=== PATIENT | female | born 1945 | race Caucasian/White ===

== ENCOUNTER → 2020-07-04 10:04 | Outpatient (BNVA) | payer MEDICARE, SELFPAY | PROVIDERS: PCP Internal Medicine; Visit Provider Nurse Practitioner Gerontology | DX: E11.42 Type 2 diabetes mellitus with diabetic polyneuropathy (principal); E11.65 Type 2 diabetes mellitus with hyperglycemia; Z79.84 Long term (current) use of oral hypoglycemic drugs; I10 Essential (primary) hypertension; E78.5 Hyperlipidemia, unspecified; E66.9 Obesity, unspecified | CPT/HCPCS: 82947; 99212 ==

== ENCOUNTER 2020-07-07 09:51 | Outpatient (REF) | payer MEDICARE, SELFPAY ==
[2020-07-07 11:38] LABS: Alanine Aminotransferase 42 U/L (0-31); Albumin Level 4.1 g/dL (3.5-5.0); Alkaline Phosphatase 24 U/L (39-117); Anion Gap 12 (12-20); Aspartate Amino Transferase 26 U/L (5-31); Bilirubin Total 0.3 mg/dL (0.0-1.0); Blood Urea Nitrogen 18 mg/dL (9-16); Calcium 9.9 mg/dL (8.4-10.2); Carbon Dioxide 28 mmol/L (22-29); Chloride 102 mmol/L (96-108); Cholesterol 190 mg/dL; Estimated Glomerular Filt Rate > 60; Glucose Fasting 178 mg/dL (60-99); HDL Cholesterol 55 mg/dL; LDL Cholesterol Calculated 111 mg/dl; Potassium 5.1 mmol/l (3.3-5.1); Sodium 137 mmol/L (135-145); Total Protein 6.8 g/dL (6.5-8.0); Triglycerides 123 mg/dL
[2020-07-07 11:46] LABS: Free T4 (Free Thyroxine) 1.06 ng/dL (0.71-1.85); Thyroid Stimulating Hormone 1.88 uIU/mL (0.32-4.0)
[2020-07-07 11:48] LABS: Vitamin D 25-OH Total 32.5 ng/mL (>30)
[2020-07-08 09:16] LABS: Triiodothyronine T3 Free 2.6 pg/mL (2.3-4.2)
== END 2020-07-07 09:52 | disposition home or self-care (01) ==
LOC: HO.LAB 09:51
PROVIDERS: Absent Provider Nurse Practitioner Gerontology; PCP Internal Medicine; Visit Provider Internal Medicine
DX: E03.9 Hypothyroidism, unspecified (principal); I10 Essential (primary) hypertension; J44.9 Chronic obstructive pulmonary disease, unspecified; Z78.0 Asymptomatic menopausal state; E11.9 Type 2 diabetes mellitus without complications
CPT/HCPCS: 80053; 80061; 82306; 84439; 84443; 84481

== ENCOUNTER 2020-07-08 09:45 | Outpatient (REF) | payer MEDICARE, SELFPAY ==
[2020-07-08 11:19] LABS: Creatinine Urine 74.48 mg/dL; Microalbum/Creatinine Ratio Ur 16.1 ug/mg cr
== END 2020-07-08 09:46 | disposition home or self-care (01) ==
LOC: HO.LNP 09:45
PROVIDERS: Visit Provider Nurse Practitioner Gerontology
DX: E11.42 Type 2 diabetes mellitus with diabetic polyneuropathy (principal); E03.9 Hypothyroidism, unspecified; I10 Essential (primary) hypertension; J44.9 Chronic obstructive pulmonary disease, unspecified; Z78.0 Asymptomatic menopausal state
CPT/HCPCS: 82043

== ENCOUNTER → 2020-10-05 08:20 | Outpatient (BNVA) | payer MEDICARE, SELFPAY | PROVIDERS: PCP Internal Medicine; Visit Provider Nurse Practitioner Gerontology | DX: Z76.89 Persons encountering health services in other specified circumstances (principal) | CPT/HCPCS: Q3014 ==

== ENCOUNTER 2020-10-26 09:55 | Outpatient (REF) | payer MEDICARE, SELFPAY ==
[2020-10-26 12:05] LABS: Alanine Aminotransferase 40 U/L (0-31); Anion Gap 15 (12-20); Aspartate Amino Transferase 27 U/L (5-31); Blood Urea Nitrogen 16 mg/dL (9-16); Calcium 9.6 mg/dL (8.4-10.2); Carbon Dioxide 28 mmol/L (22-29); Chloride 102 mmol/L (96-108); Cholesterol 194 mg/dL; Estimated Glomerular Filt Rate > 60; Glucose Fasting 178 mg/dL (60-99); HDL Cholesterol 55 mg/dL; LDL Cholesterol Calculated 114 mg/dl; Potassium 4.6 mmol/L (3.3-5.1); Sodium 140 mmol/L (135-145); Triglycerides 129 mg/dL
[2020-10-26 12:27] LABS: Free T4 (Free Thyroxine) 1.17 ng/dL (0.71-1.85); Thyroid Stimulating Hormone 1.82 uIU/mL (0.32-4.0)
== END 2020-10-26 09:56 | disposition home or self-care (01) ==
LOC: HO.HMGCLDS 09:55
PROVIDERS: PCP Internal Medicine; Visit Provider Internal Medicine
DX: E11.42 Type 2 diabetes mellitus with diabetic polyneuropathy (principal); E11.65 Type 2 diabetes mellitus with hyperglycemia; I10 Essential (primary) hypertension; E78.5 Hyperlipidemia, unspecified; E66.9 Obesity, unspecified; E03.9 Hypothyroidism, unspecified
CPT/HCPCS: 36415; 80048; 80061; 84439; 84443; 84450; 84460

== ENCOUNTER 2020-12-19 16:45 | Outpatient (REF) | payer MEDICARE, SELFPAY | END 2020-12-19 16:46 | disposition home or self-care (01) | LOC: HO.LNP 16:45 | PROVIDERS: Visit Provider Nurse Practitioner Family | DX: Z20.822 Contact with and (suspected) exposure to COVID-19 (principal) | CPT/HCPCS: U0003; U0005 ==

== ENCOUNTER → 2020-12-26 14:33 | Outpatient (BNVA) | payer MEDICARE, SELFPAY | PROVIDERS: PCP Internal Medicine; Visit Provider Nurse Practitioner Gerontology ==

== ENCOUNTER 2021-01-03 16:36 | Outpatient (REF) | payer MEDICARE, SELFPAY ==
--- NOTE | ~2021-01-03 | US_ITS ---
EXAMINATION: US VENOUS ULTRASOUND WITH DOPPLER LOWER EXTREMITY, LEFT CLINICAL INFORMATION: Left flank pain COMPARISON: None TECHNIQUE: Ultrasound of the deep veins is performed from the hip to the calf with compression sonography and color and pulse Doppler assessment. Spectral analysis with color-flow imaging is performed. FINDINGS: There is normal venous compression and respiratory variation and augmented flow. The visualized common femoral vein, superficial femoral vein, profunda femoral vein, popliteal vein, and the trifurcation region shows no evidence of deep venous thrombosis. There is no significant popliteal fossa cyst. There is an anterior fluid collections seen anterior to the patella measuring 5.0 x 1.6 x 4.2 cm which could represent a joint effusion. If the patient's symptoms persist, followup ultrasound in 5 days 7 days might be of value to exclude proximal propagation from a non-visualized calf vein. US/US venous duplex LE LT IMPRESSION: No DVT demonstrated in the left lower extremity. Possible joint effusion or fluid collection in the area of patient's discomfort.
== END 2021-01-03 16:37 | disposition home or self-care (01) ==
LOC: HO.US 16:36
PROVIDERS: PCP Internal Medicine; Visit Provider Nurse Practitioner Family
DX: M79.605 Pain in left leg (principal)
CPT/HCPCS: 93971

== ENCOUNTER 2021-01-31 06:37 | Outpatient (REF) | payer MEDICARE, SELFPAY ==
[2021-01-31 11:52] LABS: Glucose Urine UA NEG (NEG); Leukocyte Esterase Urine NEG (NEG); Nitrite Urine NEG (NEG); Urine Blood NEG (NEG); Urine Ketones NEG (NEG); Urine Protein NEG (NEG-TRACE)
[2021-01-31 11:57] LABS: Color Urine YELLOW
[2021-01-31 11:58] LABS: Appearance Urine CLEAR
[2021-01-31 12:15] LABS: Free T4 (Free Thyroxine) 0.88 ng/dL (0.71-1.85); Thyroid Stimulating Hormone 2.63 uIU/mL (0.32-4.0); Vitamin D 25-OH Total 29.6 ng/mL (>30)
[2021-01-31 12:16] LABS: Estimated Average Glucose 189 mg/dL; Hemoglobin A1c % 8.2 %
[2021-01-31 12:25] LABS: Alanine Aminotransferase 41 U/L (0-31); Alkaline Phosphatase 24 U/L (39-117); Anion Gap 15 (12-20); Aspartate Amino Transferase 31 U/L (5-31); Bilirubin Total 0.6 mg/dL (0.0-1.0); Blood Urea Nitrogen 17 mg/dL (9-16); Calcium 9.4 mg/dL (8.4-10.2); Carbon Dioxide 23 mmol/L (22-29); Chloride 107 mmol/L (96-108); Cholesterol 189 mg/dL; Estimated Glomerular Filt Rate > 60; Glucose Fasting 178 mg/dL (60-99); HDL Cholesterol 44 mg/dL; LDL Cholesterol Calculated 113 mg/dl; Potassium 4.8 mmol/L (3.3-5.1); Sodium 140 mmol/L (135-145); Total Protein 6.7 g/dL (6.5-8.0); Triglycerides 164 mg/dL
[2021-01-31 12:51] LABS: Creatinine Urine 71.93 mg/dL; Microalbum/Creatinine Ratio Ur 26.4 ug/mg cr
== END 2021-01-31 06:38 | disposition home or self-care (01) ==
LOC: HO.HMGCLDS 06:37
PROVIDERS: PCP Internal Medicine; Visit Provider Internal Medicine
DX: E11.65 Type 2 diabetes mellitus with hyperglycemia (principal); E11.42 Type 2 diabetes mellitus with diabetic polyneuropathy; E89.0 Postprocedural hypothyroidism; I10 Essential (primary) hypertension; E78.5 Hyperlipidemia, unspecified; E66.9 Obesity, unspecified; Z78.0 Asymptomatic menopausal state
CPT/HCPCS: 36415; 80053; 80061; 81003; 82043; 82306; 83036; 84439; 84443

== ENCOUNTER → 2021-02-22 13:47 | Outpatient (BNVA) | payer MEDICARE, SELFPAY | PROVIDERS: PCP Internal Medicine; Visit Provider Nurse Practitioner Gerontology | DX: E11.42 Type 2 diabetes mellitus with diabetic polyneuropathy (principal); E11.65 Type 2 diabetes mellitus with hyperglycemia; E78.5 Hyperlipidemia, unspecified; E66.9 Obesity, unspecified; I10 Essential (primary) hypertension; Z91.19 Patient's noncompliance with other medical treatment and regimen | CPT/HCPCS: 82947; 99212 ==

== ENCOUNTER 2021-03-31 16:38 | Outpatient (REF) | payer MEDICARE, SELFPAY | END 2021-03-31 16:39 | disposition home or self-care (01) | LOC: HO.LNP 16:38 | PROVIDERS: Visit Provider Hospitalist | DX: R30.0 Dysuria (principal) | CPT/HCPCS: 87086; 87088; 87186 ==

== ENCOUNTER → 2021-06-19 08:58 | Outpatient (BNVA) | payer MEDICARE, SELFPAY | PROVIDERS: PCP Internal Medicine; Visit Provider Nurse Practitioner Gerontology | DX: E11.42 Type 2 diabetes mellitus with diabetic polyneuropathy (principal); E11.65 Type 2 diabetes mellitus with hyperglycemia; E78.5 Hyperlipidemia, unspecified; E66.9 Obesity, unspecified; I10 Essential (primary) hypertension; Z91.19 Patient's noncompliance with other medical treatment and regimen | CPT/HCPCS: 82947; 83036; 99212 ==

== ENCOUNTER 2021-07-04 11:00 | Outpatient (RCR) | payer MEDICARE, SELFPAY ==
--- NOTE | 2021-06-27 10:57 | MHC.PT.EP ---
[facility] [place] Office [place] Office [place] Office [address] Len Chester [address] [phone] F: [phone] F: [phone] F: [phone] F: [phone] Physical Therapy Plan of Care Date of Evaluation: Date of Surgery: N/A Diagnosis: cervicalgia Assessment: pt presents w/ signs and symptoms consistent w/ poor habitual posturing and muscular imbalance of cervical postural muscles. pt presents to physical therapy with pain, decreased range of motion, decreased strength, impaired functional mobility, and impaired postural awareness. pt is a good candidate for skilled PT due to age, potential remediation of impairments, typical disease/condition progression and prognosis, comorbidities, and motivation. pt would benefit from tailored strengthening and stretching exercise program, functional training, postural re-training, neuromuscular re-education, modalities as needed for pain, equipment safety demonstration. Frequency and Duration: The patient will be seen 1x/wk for 4 wks Short Term Goals: pt will be I w/ HEP to promote self-management of condition. pt will demo proper sitting posture w/ lumbar roll to promote neutral spine w/ seated ADLs. Prison Goals: pt will report a statistically significant improvement in self-reported outcome measure, NDI, to promote return to PLOF. 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 Treatment Plan: Modalities to reduce pain, spasms and effusion. Manual therapy to restore motion and function. Therapeutic exercise to improve strength and flexibility. Neuromuscular re-education for posture and balance. Therapeutic activities to return to functional activities of daily living. Electronically signed by: Brenda Mccullough PT, DPT Please sign and return to therapist. Thank you for your referral.
--- NOTE | 2021-07-18 14:23 | MHC.PT.DC ---
[facility] [place] Office [place] Office [place] Office [address] Len Chester [address] [phone] F: [phone] F: [phone] F: [phone] F: [phone] Physical Therapy Discharge Report Diagnosis: cervicalgia Date of Surgery: N/A Date of Evaluation: 06/27/21 Date of Discharge: 07/18/21 Treatments to Date: 2 Cancellations to Date: 0 No Shows to Date: 2 Discharge Status: Visit Non-compliance Discharge Summary: The patient has no showed two consecutive appointments. Per [facility] Core Therapy policy she is to be discharged for visit non-compliance. Electronically signed by: Brenda Mccullough PT, DPT Please sign and return to therapist. Thank you for your referral.
== END 2021-07-18 14:23 | disposition home or self-care (01) ==
LOC: HO.PT 11:00
PROVIDERS: PCP Internal Medicine; Visit Provider Internal Medicine
DX: M54.2 Cervicalgia (principal)
CPT/HCPCS: 97110; 97161

== ENCOUNTER → 2021-07-07 10:39 | Outpatient (BNVA) | payer MEDICARE, SELFPAY | PROVIDERS: PCP Internal Medicine; Visit Provider Registered Nurse Diabetes Educator | DX: E11.65 Type 2 diabetes mellitus with hyperglycemia (principal) | CPT/HCPCS: 99211 ==

== ENCOUNTER → 2021-10-13 10:29 | Outpatient (BNVA) | payer MEDICARE, SELFPAY | PROVIDERS: PCP Internal Medicine; Visit Provider Nurse Practitioner Gerontology | DX: E11.42 Type 2 diabetes mellitus with diabetic polyneuropathy (principal); E11.65 Type 2 diabetes mellitus with hyperglycemia; E78.5 Hyperlipidemia, unspecified; E66.9 Obesity, unspecified; I10 Essential (primary) hypertension; Z91.19 Patient's noncompliance with other medical treatment and regimen; Z79.84 Long term (current) use of oral hypoglycemic drugs; Z68.32 Body mass index [BMI] 32.0-32.9, adult | CPT/HCPCS: 82947; 83036; 99212 ==

== ENCOUNTER 2021-10-25 07:07 | Outpatient (REF) | payer MEDICARE, SELFPAY ==
[2021-10-25 11:49] LABS: Free T4 (Free Thyroxine) 1.05 ng/dL (0.71-1.85); Thyroid Stimulating Hormone 2.69 uIU/mL (0.32-4.0)
[2021-10-25 12:11] LABS: Alanine Aminotransferase 43 U/L (0-31); Alkaline Phosphatase 23 U/L (39-117); Anion Gap 13 (12-20); Aspartate Amino Transferase 31 U/L (5-31); Bilirubin Total 0.4 mg/dL (0.0-1.0); Blood Urea Nitrogen 20 mg/dL (9-16); Calcium 10.1 mg/dL (8.4-10.2); Carbon Dioxide 28 mmol/L (22-29); Chloride 102 mmol/L (96-108); Estimated Glomerular Filt Rate > 60; Glucose Fasting 176 mg/dL (60-99); Potassium 4.4 mmol/L (3.3-5.1); Sodium 139 mmol/L (135-145); Total Protein 6.7 g/dL (6.5-8.0)
== END 2021-10-25 07:08 | disposition home or self-care (01) ==
LOC: HO.HMGCLDS 07:07
PROVIDERS: Visit Provider Internal Medicine
DX: I10 Essential (primary) hypertension (principal); E03.9 Hypothyroidism, unspecified; E11.65 Type 2 diabetes mellitus with hyperglycemia
CPT/HCPCS: 36415; 80053; 84439; 84443

== ENCOUNTER → 2022-01-12 10:33 | Outpatient (BNVA) | payer MEDICARE, SELFPAY | PROVIDERS: PCP Internal Medicine; Visit Provider Nurse Practitioner Gerontology | DX: E11.65 Type 2 diabetes mellitus with hyperglycemia (principal); E11.42 Type 2 diabetes mellitus with diabetic polyneuropathy; E78.5 Hyperlipidemia, unspecified; E66.9 Obesity, unspecified; I10 Essential (primary) hypertension; Z79.84 Long term (current) use of oral hypoglycemic drugs; Z68.31 Body mass index [BMI] 31.0-31.9, adult | CPT/HCPCS: 82947; 83036; 99212 ==

== ENCOUNTER 2022-05-22 08:10 | Outpatient (REF) | payer MEDICARE, SELFPAY ==
[2022-05-22 11:54] LABS: Alanine Aminotransferase 24 U/L (0-31); Albumin Level 4.1 g/dL (3.5-5.0); Alkaline Phosphatase 20 U/L (39-117); Anion Gap 16 (12-20); Aspartate Amino Transferase 20 U/L (5-31); Bilirubin Total 0.4 mg/dL (0.0-1.0); Blood Urea Nitrogen 17 mg/dL (9-16); Calcium 9.8 mg/dL (8.4-10.2); Carbon Dioxide 25 mmol/L (22-29); Chloride 104 mmol/L (96-108); Cholesterol 193 mg/dL; Estimated Glomerular Filt Rate > 60; Glucose Fasting 153 mg/dL (60-99); HDL Cholesterol 50 mg/dL; LDL Cholesterol Calculated 115 mg/dl; Potassium 4.6 mmol/L (3.3-5.1); Sodium 140 mmol/L (135-145); Total Protein 6.8 g/dL (6.5-8.0); Triglycerides 140 mg/dL
[2022-05-22 12:06] LABS: Free T4 (Free Thyroxine) 0.97 ng/dL (0.71-1.85); Thyroid Stimulating Hormone 2.02 uIU/mL (0.32-4.0); Vitamin D 25-OH Total 42.9 ng/mL (>30)
[2022-05-22 17:03] LABS: Creatinine Urine 100.61 mg/dL; Microalbum/Creatinine Ratio Ur 103.3 ug/mg cr
[2022-05-24 01:27] LABS: LDL Cholesterol Direct 119 mg/dL (<100)
== END 2022-05-22 08:11 | disposition home or self-care (01) ==
LOC: HO.HMGCLDS 08:10
PROVIDERS: Nurse Practitioner Gerontology; PCP Internal Medicine; Visit Provider Internal Medicine
DX: E89.0 Postprocedural hypothyroidism (principal); E78.5 Hyperlipidemia, unspecified; I10 Essential (primary) hypertension; E11.42 Type 2 diabetes mellitus with diabetic polyneuropathy; E66.9 Obesity, unspecified
CPT/HCPCS: 36415; 80053; 80061; 82043; 82306; 83721; 84439; 84443

== ENCOUNTER 2022-08-30 17:16 | Outpatient (REF) | payer MEDICARE, SELFPAY ==
--- NOTE | ~2022-08-30 | XR_ITS ---
EXAMINATION: XR ELBOW, LEFT CLINICAL INFORMATION: Elbow pain COMPARISON: None available TECHNIQUE: AP, lateral, and oblique views of the left elbow. FINDINGS: There is a subtle lucency at the articular surface of the medial aspect of the radial head, differential consideration include age-indeterminate fracture, osteochondral lesion. No dislocation. There is bony spurring at the medial and lateral humeral epicondyle. Multiple small ossific densities adjacent to the lateral humeral epicondyle/condyle, which could represent heterotopic ossification, sequela of epicondylitis. No significant joint effusion. XR/XR elbow LT min 3V IMPRESSION: 1. Findings in the radial head, described above, could represent age indeterminate fracture, osteochondral lesion/OCD. 2. Findings associated medial and lateral humeral epicondyle, detailed above, could reflect heterotopic ossification, enthesopathy, epicondylitis. Clinically correlate. MRI evaluation may be helpful.
== END 2022-08-30 17:17 | disposition home or self-care (01) ==
LOC: HO.HOSX 17:16
PROVIDERS: Visit Provider Physician Assistant
DX: S52.122D Displaced fracture of head of left radius, subsequent encounter for closed fracture with routine healing (principal); V09.9XXD Pedestrian injured in unspecified transport accident, subsequent encounter
CPT/HCPCS: 73080; 99202

== ENCOUNTER 2022-09-27 10:00 | Outpatient (RCR) | payer MEDICARE, SELFPAY ==
--- NOTE | 2022-09-27 10:43 | MHC.OT.DC ---
[address] [phone] F: [phone] Occupational Therapy Discharge Note Provider: Yuliya Early Diagnosis: Left Radial Head Fx Date of Surgery: Date of Evaluation: 09/05/22 Date of Discharge: Treatments to Date: 8 Cancellations to Date: 0 No Shows to Date: 0 Discharge Status: Achieved Goals Improved Function Independent with HEP Discharge Summary: Amarilis has made significant gains in OT and is scheduled for d/c this date. Pt. reports left elbow is pain free at rest, reaches 2/10 with activity. Elbow ROM is WFL's and gross grasp improved to 38#. At this time, pt. is IND with all ADL's/IADL's and IND with HEP. Electronically Signed By: Shauna Ramires MS OTR/L Reviewed/agree with student documentation: Therapist: Please Sign and return to therapist, thank you for your referral.
== END 2022-09-27 10:44 | disposition home or self-care (01) ==
LOC: HO.OT 10:00
PROVIDERS: PCP Internal Medicine; Visit Provider Physician Assistant
DX: S52.122A Displaced fracture of head of left radius, initial encounter for closed fracture (principal)
CPT/HCPCS: 97110; 97140; 97165

== ENCOUNTER 2022-10-03 11:49 | Outpatient (REF) | payer MEDICARE, SELFPAY ==
--- NOTE | ~2022-10-03 | MM_ITS ---
EXAMINATION: MM SCREENING DIGITAL BREAST TOMOSYNTHESIS, BILATERAL CLINICAL INFORMATION: Screening. Asymptomatic. The lifetime risk of breast cancer based on the Tyrer-Cuzick Model is 1.8%. COMPARISON: Mammography: May 11, 2020 and studies dating back to November 02, 2014 TECHNIQUE: Digital breast tomosynthesis is performed in both the craniocaudal and mediolateral oblique views along with computer-aided detection (CAD). Synthesized 2D images are generated from the tomosynthesis. FINDINGS: There are scattered areas of fibroglandular density (ACR BI-RADS breast composition Category b). There are no significant masses, abnormal calcifications, or other abnormalities. MM/MM tomosynthesis screening BI IMPRESSION: No significant changes from prior exam. ASSESSMENT: BI-RADS 1: Negative RECOMMENDATION: Routine annual mammography screening. This patient's information was entered into a reminder system with a target due date for their next mammogram.
== END 2022-10-03 11:50 | disposition home or self-care (01) ==
LOC: HO.MAMMO 11:49
PROVIDERS: PCP Internal Medicine; Visit Provider Internal Medicine
DX: Z12.31 Encounter for screening mammogram for malignant neoplasm of breast (principal)
CPT/HCPCS: 77063; 77067

== ENCOUNTER 2022-12-03 08:16 | Outpatient (REF) | payer MEDICARE, SELFPAY ==
[2022-12-03 11:54] LABS: Estimated Average Glucose 151 mg/dL; Hemoglobin A1c % 6.9 %
[2022-12-03 11:56] LABS: Alanine Aminotransferase 20 U/L (0-31); Anion Gap 13 (12-20); Aspartate Amino Transferase 16 U/L (5-31); Blood Urea Nitrogen 17 mg/dL (9-16); Calcium 9.4 mg/dL (8.4-10.2); Carbon Dioxide 26 mmol/L (22-29); Chloride 109 mmol/L (96-108); Cholesterol 168 mg/dL; Estimated Glomerular Filt Rate > 60; Glucose Fasting 170 mg/dL (60-99); HDL Cholesterol 50 mg/dL; LDL Cholesterol Calculated 90 mg/dl; Potassium 4.6 mmol/L (3.3-5.1); Sodium 143 mmol/L (135-145); Triglycerides 140 mg/dL
[2022-12-03 11:59] LABS: Free T4 (Free Thyroxine) 1.02 ng/dL (0.71-1.85); Vitamin D 25-OH Total 31.6 ng/mL (>30)
[2022-12-03 14:32] LABS: Creatinine Urine 64.12 mg/dL; Microalbum/Creatinine Ratio Ur 196.5 ug/mg cr
== END 2022-12-03 08:17 | disposition home or self-care (01) ==
LOC: HO.HMGCLDS 08:16
PROVIDERS: PCP Internal Medicine; Visit Provider Internal Medicine
DX: E89.0 Postprocedural hypothyroidism (principal); E11.42 Type 2 diabetes mellitus with diabetic polyneuropathy; I10 Essential (primary) hypertension; E78.5 Hyperlipidemia, unspecified; E66.9 Obesity, unspecified
CPT/HCPCS: 36415; 80048; 80061; 82043; 82306; 83036; 84439; 84443; 84450; 84460

== ENCOUNTER 2023-01-04 07:27 | Outpatient (REF) | payer MEDICARE, SELFPAY | END 2023-01-04 07:28 | disposition home or self-care (01) | LOC: HO.HOSX 07:27 | PROVIDERS: Visit Provider Physician Assistant | DX: M77.12 Lateral epicondylitis, left elbow (principal) | CPT/HCPCS: 99212 ==

== ENCOUNTER 2023-02-18 09:38 | Outpatient (REF) | payer MEDICARE, SELFPAY ==
--- NOTE | ~2023-02-18 | MR_ITS ---
EXAMINATION: MR ELBOW WITHOUT CONTRAST, LEFT CLINICAL INFORMATION: Medial left elbow pain following an injury. Radial head fracture. COMPARISON: Left elbow radiographs dated 08/30/2022. TECHNIQUE: Multisequence MR imaging of the left elbow was obtained without contrast on a high-field strength scanner. Examination was terminated prematurely due to patient motion. FINDINGS: Evaluation somewhat limited due to patient motion and premature termination. Ulnar collateral ligament: Intact. Common flexor tendon: Intact. Radial collateral ligament: Significant attenuation and irregularity of the radial collateral ligament, consistent with high-grade partial tearing. Common extensor tendon: Thickening and increased T2 signal the common extensor tendon, consistent with tendinosis. There is irregular undersurface partial tearing measuring 1.1 x 1.4 cm (AP x CC). Biceps/triceps tendon: Minimally increased T2 signal associated with the distal biceps tendon insertion, consistent with minimal tendinosis. No measurable tear. Intact distal triceps tendon. Articular cartilage/bone: Nondisplaced, oblique fracture through the posteromedial aspect of the radial head measuring up to 1.3 x 0.7 cm (AP x ML) with adjacent marrow edema. Degree of osseous bridging difficult to evaluate on MR examination. Associated marrow edema. Marrow edema within the proximal ulna/olecranon which could represent an osseous contusion. No definite fracture line. Ulnotrochlear articular cartilage thinning with small marginal osteophytes. Ulnar nerve: Intact. Joint fluid/soft tissues: [id number] elbow joint effusion. MR/MR elbow LT wo con IMPRESSION: 1. Nondisplaced, oblique fracture through the posteromedial aspect of the radial head measuring up to 1.3 cm with adjacent marrow edema. Degree of osseous bridging difficult to evaluate on MR examination. CT examination could help further evaluate if clinically indicated. 2. Marrow edema within the proximal ulna/olecranon, which could represent an osseous contusion. No definite fracture line. 3. High-grade partial tearing of the radial collateral ligament. Common extensor tendinosis with irregular undersurface partial tearing measuring 1.1 x 1.4 cm. 4. Minimal distal biceps tendinosis without a measurable tendon tear. 5. Mild ulnotrochlear osteoarthritis. [id number]-ei-vbnqbrae elbow joint effusion.
== END 2023-02-18 09:39 | disposition home or self-care (01) ==
LOC: HO.MRI 09:38
PROVIDERS: PCP Internal Medicine; Visit Provider Physician Assistant
DX: M77.12 Lateral epicondylitis, left elbow (principal); S52.122A Displaced fracture of head of left radius, initial encounter for closed fracture
CPT/HCPCS: 73221

== ENCOUNTER 2023-03-04 10:18 | Outpatient (AMB) | payer MEDICARE, SELFPAY ==
[2023-03-04 10:24] VITALS: BMI 31.9
--- NOTE | 2023-03-04 10:24 | MHC.OFFVIS ---
Intake Vital Signs 03/04/23 10:24 Height 5 ft 3 in Weight 180 lb BMI 31.9 Intake Visit Reasons: OV-Left fracture Elbow MRI review Intake Note: Amarilis 77 year old female returns to the office today for review of MRI for her left elbow pain s/p radial head fracture 07/03/22. States has no pain unless she moves the wrong way or over uses her arm. Allergies adhesive tape Allergy (Unknown, Verified 03/04/23 10:28) Skin irritation, redness and itching molasses Allergy (Unknown, Verified 03/04/23 10:28) Rhinitis Seasonal Allergies Allergy (Unknown, Verified 03/04/23 10:28) Rhinitis umeclidinium [From INCRUSE ELLIPTA] Adverse Reaction (Intermediate, Verified 03/04/23 10:) PALPITATIONS Maple Allergy (Unknown, Uncoded 03/04/23 10:28) Rhinitis inhaled corticosteroid Adverse Reaction (Unknown, Uncoded 03/04/23 10:28) palpitations HPI OV-Left fracture Elbow MRI review HPI Details 77-year-old female who returns to the office today for an MRI review of left elbow fracture, 07/03/22. She states she has no pain unless with overusing her arm or if she moves her elbow the wrong way. She also c/o pain in her finger with making a fist and experiences pain with driving with an outstretched arm. 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 Surgical History History of back surgery History of eyelid surgery Hx of cholecystectomy Hx of colonoscopy Family History Father CVA (cerebral vascular accident) Diabetes Mother Renal disease Bile duct cancer Heart failure CVD (cardiovascular disease) Sister Mental health disorder Social History Household Members: Children Housing: House Alcohol intake: never Patient Tobacco Use Status: Former Tobacco user Years Smoked: 25 yrs e-Cigarette/Vaping Use: Never Used service: No Current occupational status: retired Current occupation: right hand dominant Cognitive needs: No Hearing needs: No Vision needs: Yes Review of Systems Const All systems reviewed & are unremarkable except as noted in HPI and below Physical Exam Vital Signs: BMI result Body Mass Index 31.9 Extrem Other: Left Elbow skin intact. No erythema or swelling. ROM full without pain. No significant tenderness over the lateral epicondyle and no pain with resisted wrist extension. No laxity. NVI. Results Reviewed Results Reviewed: MR elbow LT wo con IMPRESSION: ? 1.? Nondisplaced, oblique fracture through the posteromedial aspect of the radial head measuring up to 1.3 cm with adjacent marrow edema. Degree of osseous bridging difficult to evaluate on MR examination. CT examination could help further evaluate if clinically indicated. ? 2.? Marrow edema within the proximal ulna/olecranon, which could represent an osseous contusion. No definite fracture line. ? 3.? High-grade partial tearing of the radial collateral ligament. Common extensor tendinosis with irregular undersurface partial tearing measuring 1.1 x 1.4 cm. ? 4.? Minimal distal biceps tendinosis without a measurable tendon tear. ? 5.? Mild ulnotrochlear osteoarthritis. [id number] elbow joint effusion. ? Assessment & Plan Assessment & Plan (1) Left lateral epicondylitis: Code(s): M77.12 - Lateral epicondylitis, left elbow Plan We reviewed her MRI result and discussed the nature of healing in her fracture. We also discussed chronic limitations that she may experiences which was discussed initially, which would be overall lack on 10 degrees flexion and extension due to her radial head fracture. The MRI does mention a high-grade partial tear of radial collateral ligament however, she is not experiencing any instability or laxity of the elbow. She will continue to increase activity as tolerated and perform her home exercises program. If symptoms persist or worsens, patient will contact the office, otherwise follow-up as needed. Patient Instructions: Scribed for Yuliya Early PA-C, by crow Rodriguez scribe, on 03/04/2023 at 10:15 AM EST. I, Yuliya Early PA-C, have personally reviewed and agree with the information entered by the scribe. Coding Level of Care Code Est Pt Level 3 (80761) Diagnoses Left lateral epicondylitis M77.12
== END 2023-03-04 10:43 | disposition home or self-care (01) ==
PROVIDERS: PCP Internal Medicine; Visit Provider Physician Assistant
DX: M77.12 Lateral epicondylitis, left elbow (principal)
CPT/HCPCS: 99213

== ENCOUNTER → 2023-03-04 10:20 | Outpatient (BNVA) | payer MEDICARE, SELFPAY | PROVIDERS: PCP Internal Medicine; Visit Provider Physician Assistant | DX: M77.12 Lateral epicondylitis, left elbow (principal) | CPT/HCPCS: 99212 ==

== ENCOUNTER 2023-05-10 09:36 | Outpatient (AMB) | payer MEDICARE, SELFPAY ==
[2023-05-10 10:06] VITALS: BP 134/80; PULSE 97; TEMP 36.4; O2SAT 100; BMI 32.7
--- NOTE | 2023-05-10 10:06 | MHC.OFFWIV ---
Intake Vital Signs 05/10/23 10:06 Height 5 ft 3 in Weight 184 lb 6 oz BMI 32.7 BP 134/80 Blood Pressure Location Rt brachial Position Sitting Pulse 97 Pulse Source Pulse Oximeter Temp 97.5 F Temp Source Temporal Artery Scan Pulse Oximetry (%) 100 Oxygen Delivery Method Room Air Intake Visit Reasons: est pt. left wrist pain Intake Note: Pt is here c/o left wrist pain due to a fall she had on 05/08/23. Patient Tobacco Use Status: Former Tobacco user Allergies adhesive tape Allergy (Unknown, Verified 05/10/23 10:09) Skin irritation, redness and itching molasses Allergy (Unknown, Verified 05/10/23 10:09) Rhinitis Seasonal Allergies Allergy (Unknown, Verified 05/10/23 10:09) Rhinitis umeclidinium [From INCRUSE ELLIPTA] Adverse Reaction (Intermediate, Verified 05/10/23 10:09) PALPITATIONS Maple Allergy (Unknown, Uncoded 05/10/23 10:09) Rhinitis inhaled corticosteroid Adverse Reaction (Unknown, Uncoded 05/10/23 10:09) palpitations HPI HPI Comments History of Present Illness Details This is a 77-year-old female who presents to the office today for sick visit. Patient complaining of left wrist, hand, and elbow pain status post mechanical fall that occurred 2 days ago. Patient states she tripped on a carpet in her house causing her to fall an outstretched left hand. She has been complaining of left wrist, hand, and elbow pain/swelling since. She denies any numbness/weakness/paresthesias of the extremities. Patient is otherwise feeling well. 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 Surgical History History of back surgery History of eyelid surgery Hx of cholecystectomy Hx of colonoscopy Family History Father CVA (cerebral vascular accident) Diabetes Mother Renal disease Bile duct cancer Heart failure CVD (cardiovascular disease) Sister Mental health disorder Social History Household Members: Children Housing: House Alcohol intake: never Patient Tobacco Use Status: Former Tobacco user Years Smoked: 25 yrs e-Cigarette/Vaping Use: Never Used service: No Current occupational status: retired Current occupation: right hand dominant Cognitive needs: No Hearing needs: No Vision needs: Yes Review of Systems Const All systems reviewed & are unremarkable except as noted in HPI and below Reports no additional complaints Eyes Reports no additional complaints ENT Reports no additional complaints Card Reports no additional complaints Resp Reports no additional complaints GI Reports no additional complaints Reports no additional complaints Musc Reports no additional complaints Skin/Breast Reports system reviewed and no additional complaints, except as documented Neuro Reports no additional complaints Psych Reports no additional complaints Endo Reports no additional complaints Goldy/Lymph Reports no additional complaints Aller/Immun Reports no additional complaints Physical Exam Vital Signs: Last Vital Signs Temp 97.5 F 05/10/23 10:06 Pulse 97 05/10/23 10:06 BP 134/80 05/10/23 10:06 Pulse Ox 100 05/10/23 10:06 Oxygen Delivery Method Room Air 05/10/23 10:06 BMI result Body Mass Index 32.7 Const General: cooperative, healthy appearing, no acute distress and well developed Orientation/consciousness: patient oriented x3 HEENT Head: Yes normal to inspection Ears: hearing grossly normal bilaterally General nose exam: Normal external nose present Face and sinus: Yes normal facial exam Mouth: Normal oral and palatal mucosa present Eyes General: appearance normal, both eyes and all related structures Pupils: Equal, round and reactive pupils present EOM: EOMs intact bilaterally Resp Effort & Inspection: normal respiratory effort and no respiratory distress Auscultation: clear to auscultation bilaterally Cardio Rate: regular rate Rhythm: regular rhythm Heart sounds: no gallops, no murmurs and no rubs Peripheral pulses: Peripheral pulses 2+ throughout GI Inspection: No distended Palpation (GI): Soft to palpation and nontender Auscultation: normal bowel sounds Skin General skin exam: no rashes or lesions noted Neuro General: patient oriented x3 Cranial nerves: Yes CN's II-XII intact bilaterally and Yes Equal, round and reactive pupils present Gait exam (Neuro): Normal gait present Motor exam (neuro): 5/5 motor strength present throughout Extrem Other: Swelling noted to the left hand, left wrist, and left elbow. No ecchymosis appreciated. There is tenderness to palpation of the olecranon process of the left elbow, left distal radius/radial styloid process, left distal ulna and the ulnar styloid process, and mild tenderness to palpation of the left metatarsals diffusely. Full but painful range of motion of the left elbow. Decreased range of motion in all planes of the left wrist. Decreased flexion of the left fingers, intact extension of the left fingers. Psych Appearance: grossly normal Mental Status: mental status grossly normal Assessment & Plan Assessment & Plan (1) Left wrist pain: Code(s): M25.532 - Pain in left wrist (2) Left elbow pain: Code(s): M25.522 - Pain in left elbow (3) Left hand pain: Code(s): M79.642 - Pain in left hand Plan This is a 77-year-old female presenting to the office today complaining of left wrist, left hand, and left elbow pain status post a mechanical fall that occurred 2 days ago. Physical examination, there is diffuse tenderness to palpation and swelling of the left hand, wrist, and elbow. Differential diagnosis includes fracture versus sprain/strain. Patient sent for x-rays of the left hand, wrist, and elbow. Patient was given a splint for her left wrist. Prescribed PO ibuprofen 800 mg every 8 hours as needed and PO gabapentin 400 mg at bedtime times 7 days. Recommend rest/activity modification, ice to the area, and elevation of the extremity. Continue with acetaminophen/ibuprofen for pain management as long as patient has no medical contraindications. She was instructed to follow-up with her primary care physician or orthopedic surgeon next week. Orders: Orders XR wrist LT 2V Today M25.532 - Pain in left wrist XR elbow LT 2V Today M25.522 - Pain in left elbow Medications: New gabapentin 400 mg PO BEDTIME 7 caps 0RF ibuprofen Do not take in combination with naproxen. 800 mg PO Q8H PRN 12 tabs 0RF pain Coding Level of Care Code Est Pt Level 3 (56057) Diagnoses Left wrist pain M25.532 Left elbow pain M25.522 Left hand pain M79.642
== END 2023-05-10 11:55 | disposition home or self-care (01) ==
PROVIDERS: PCP Internal Medicine; Visit Provider Physician Assistant Medical
DX: M25.532 Pain in left wrist (principal); M25.522 Pain in left elbow; M79.642 Pain in left hand
CPT/HCPCS: 99213

== ENCOUNTER 2023-05-10 10:42 | Outpatient (REF) | payer MEDICARE, SELFPAY ==
--- NOTE | ~2023-05-10 | XR_ITS ---
EXAMINATION: XR ELBOW, LEFT XR HAND/WRIST, LEFT CLINICAL INFORMATION: Left elbow and left wrist/hand pain. COMPARISON: Left elbow MRI dated 02/18/2023. TECHNIQUE: AP, lateral, and oblique views of the left elbow. PA, oblique, and lateral views of the left hand and wrist. FINDINGS: Left elbow: Redemonstration of a mildly displaced medial radial head fracture with persistence of the fracture gap contacting the articular surface measuring up to 0.2 cm. Degree of osseous bridging not well evaluated on plain radiographs. No new fracture or dislocation. Ulnotrochlear joint space narrowing and radiocapitellar joint space narrowing with marginal osteophytes, not significantly changed. Probable loose body along the medial joint space measuring up to 0.2 cm. Small elbow joint effusion. Dystrophic ossification adjacent to the medial and lateral epicondyles, consistent with chronic tendinopathy. Left hand/wrist: No acute fracture or dislocation. Normal carpal alignment. Severe joint space narrowing with bony remodeling and subchondral cystic change as well as marginal osteophytes at the 1st metacarpophalangeal joint as well as to a lesser degree at the triscaphe joint. Additional moderate osteoarthritis scattered throughout the metacarpophalangeal and interphalangeal joints. No osseous erosion. Faint chondrocalcinosis. XR/XR hand wrist LT IMPRESSION: 1. Mildly displaced medial radial head fracture with persistence of the fracture gap measuring up to 0.2 cm. Degree of osseous bridging not well evaluated on plain radiographs. Moderate radiocapitellar and first metacarpophalangeal osteoarthritis. Small elbow joint effusion. Dystrophic ossification adjacent to the medial and lateral epicondyles, consistent with chronic tendinopathy. 2. Left hand/wrist: No acute fracture or dislocation. Severe osteoarthritis at the 1st metacarpophalangeal joint as well as more moderate osteoarthritis scattered throughout the metacarpophalangeal and interphalangeal joints. Faint chondrocalcinosis.
--- NOTE | ~2023-05-10 | XR_ITS ---
EXAMINATION: XR ELBOW, LEFT XR HAND/WRIST, LEFT CLINICAL INFORMATION: Left elbow and left wrist/hand pain. COMPARISON: Left elbow MRI dated 02/18/2023. TECHNIQUE: AP, lateral, and oblique views of the left elbow. PA, oblique, and lateral views of the left hand and wrist. FINDINGS: Left elbow: Redemonstration of a mildly displaced medial radial head fracture with persistence of the fracture gap contacting the articular surface measuring up to 0.2 cm. Degree of osseous bridging not well evaluated on plain radiographs. No new fracture or dislocation. Ulnotrochlear joint space narrowing and radiocapitellar joint space narrowing with marginal osteophytes, not significantly changed. Probable loose body along the medial joint space measuring up to 0.2 cm. Small elbow joint effusion. Dystrophic ossification adjacent to the medial and lateral epicondyles, consistent with chronic tendinopathy. Left hand/wrist: No acute fracture or dislocation. Normal carpal alignment. Severe joint space narrowing with bony remodeling and subchondral cystic change as well as marginal osteophytes at the 1st metacarpophalangeal joint as well as to a lesser degree at the triscaphe joint. Additional moderate osteoarthritis scattered throughout the metacarpophalangeal and interphalangeal joints. No osseous erosion. Faint chondrocalcinosis. XR/XR elbow LT 2V IMPRESSION: 1. Mildly displaced medial radial head fracture with persistence of the fracture gap measuring up to 0.2 cm. Degree of osseous bridging not well evaluated on plain radiographs. Moderate radiocapitellar and first metacarpophalangeal osteoarthritis. Small elbow joint effusion. Dystrophic ossification adjacent to the medial and lateral epicondyles, consistent with chronic tendinopathy. 2. Left hand/wrist: No acute fracture or dislocation. Severe osteoarthritis at the 1st metacarpophalangeal joint as well as more moderate osteoarthritis scattered throughout the metacarpophalangeal and interphalangeal joints. Faint chondrocalcinosis.
== END 2023-05-10 10:43 | disposition home or self-care (01) ==
LOC: HO.HMGCX 10:42
PROVIDERS: PCP Internal Medicine; Visit Provider Physician Assistant Medical
DX: M25.532 Pain in left wrist (principal); M79.642 Pain in left hand; M25.522 Pain in left elbow
CPT/HCPCS: 73070; 73110; 73130

== ENCOUNTER 2023-07-08 09:51 | Outpatient (AMB) | payer MEDICARE, SELFPAY ==
--- NOTE | 2023-07-08 09:52 | MHC.PC.OV ---
Vital Signs 07/08/23 09:55 Height 5 ft 3 in Weight 181 lb BMI 32.1 BP 138/74 Blood Pressure Location Lt brachial Position Sitting Pulse 92 Pulse Source Pulse Oximeter Pulse Oximetry (%) 96 Oxygen Delivery Method Room Air Intake Visit Reasons: HDF fall broken Ribs [facility] Intake Note: Pt is here today for her [facility] HDF broken ribs due to a fall Allergies adhesive tape Allergy (Unknown, Verified 07/08/23 10:30) Skin irritation, redness and itching molasses Allergy (Unknown, Verified 07/08/23 10:30) Rhinitis Seasonal Allergies Allergy (Unknown, Verified 07/08/23 10:30) Rhinitis umeclidinium [From INCRUSE ELLIPTA] Adverse Reaction (Intermediate, Verified 07/08/23 10:30) PALPITATIONS Maple Allergy (Unknown, Uncoded 07/08/23 10:30) Rhinitis inhaled corticosteroid Adverse Reaction (Unknown, Uncoded 07/08/23 10:30) palpitations Medication List - Last Reconciled 07/08/23 by Kaylie Vela MD albuterol sulfate 90 mcg/actuation 2 puffs PO Q6H PRN amlodipine 5 mg PO DAILY amlodipine 2.5 mg PO DAILY blood sugar diagnostic ([employer] Ultra Test strips) twice a day blood-glucose meter ([employer] Ultra2 Meter kit) twice a day ciclopirox 0.77% appl topical BID fluocinonide-emollient 0.05 % 1 appl topical BID 10 days gabapentin 400 mg PO BEDTIME ibuprofen 200 mg PO Q8H PRN lancets ([employer] Delica Lancets) As directed twice a day lisinopril 40 mg PO DAILY metformin 1,000 mg (2 x 500 mg) PO BID Synthroid (levothyroxine) 100 mcg PO DAILY NS tiotropium bromide 1 cap inhalation DAILY valacyclovir 1 gram PO ; PRN; Tobacco use date assessed: 07/08/23 Fall risk assessment: 2 + Falls in past year Last assessed Fall Risk: 07/08/23 Dental Screening Dental Screen Date: 07/08/23 Did you have a dental visit in the last 12 months?: Yes Did you have a dental problem in the last 6 months where you did not have access to dental care?: No Was dental information given to patient?: Patient has dentist HPI HDF fall broken Ribs [facility] HPI Details 78-year-old lady with history of hypertension, COPD, diabetes mellitus, hyperthyroidism, here today for follow-up after recent discharge from [facility] 06/12/2023, where she was treated after a fall from standing , down 4 stairs. Denies any loss of consciousness, workup done at the ER showed presence of right posterior rib fractures 7-12 with trace right pneumothorax. Trauma surgery was consulted and admitted to the trauma surgery service for rib fracture protocol, pulmonary toilet and PT evaluation. Repeat chest x-ray showed no pneumothorax, pain was controlled with acetaminophen and oxycodone and on day of discharge, she was tolerating her diet, was passing gas, voiding spontaneously and ambulating without difficulty. She was then transferred to short-term rehab and is now back at home getting home PT. At present patient denies any further rib pain however is complaining now of intermittent episode shooting pain on her left lower back going down her leg. Patient states that pain started after she had exercises done during her home PT. [facility] Medical History Fracture of radial head, left, closed Frequent nosebleeds Cervicalgia Arthralgia of hand, right Eczema of both hands Postablative hypothyroidism Benign hematuria Acquired ichthyosis Exercise-induced asthma Graves disease COPD (chronic obstructive pulmonary disease) Arthritis Type 2 diabetes mellitus with diabetic polyneuropathy Essential hypertension Hyperlipidemia LDL goal <100 Obesity (BMI 30.0-34.9) Surgical History History of eyelid surgery History of back surgery Hx of colonoscopy Hx of cholecystectomy Family History Father CVA (cerebral vascular accident) Diabetes Mother Renal disease Bile duct cancer Heart failure CVD (cardiovascular disease) Sister Mental health disorder Social History Household Members: Children Housing: House Alcohol intake: never Patient Tobacco Use Status: Former Tobacco user Years Smoked: 25 yrs e-Cigarette/Vaping Use: Never Used service: No Current occupational status: retired Current occupation: right hand dominant Cognitive needs: No Hearing needs: No Vision needs: Yes Questionnaire Thrive Questionnaire Date Thrive assessed: 12/05/22 JAILYN-7 AMB Questionnaire JAILYN-7 Date JAILYN - 7 assessed: 12/05/22 Source: Developed by DrsJustice Ford, Libia Shaikh, Chi Hamilton and colleagues, with an educational archie from [employer]. Review of Systems Const All systems reviewed & are unremarkable except as noted in HPI and below Reports no additional complaints Eyes Reports no additional complaints ENT Reports no additional complaints Card Reports no additional complaints Resp Reports no additional complaints GI Reports no additional complaints Reports no additional complaints Musc Reports no additional complaints Skin/Breast Reports system reviewed and no additional complaints, except as documented Neuro Reports no additional complaints Psych Reports no additional complaints Endo Reports no additional complaints Goldy/Lymph Reports no additional complaints Aller/Immun Reports no additional complaints Physical exam (Primary Care) Vital Signs: Last Vital Signs Pulse 92 07/08/23 09:55 BP 138/74 07/08/23 09:55 Pulse Ox 96 07/08/23 09:55 Oxygen Delivery Method Room Air 07/08/23 09:55 BMI result Body Mass Index 32.1 Tobacco/Smoking Status: Tobacco use Status Tobacco use date assessed 07/08/23 07/08/23 09:56 Patient Tobacco Use Status Former Tobacco user 07/08/23 09:54 e-Cigarette/Vaping Use Never Used 07/08/23 09:54 Thrive Assessment: Date of Thrive Assessment Date Thrive assessed 12/05/22 07/08/23 09:54 Const Other: Alert oriented x3, no acute cardiorespiratory distress noted, ambulatory with assistance of a cane. Orientation/consciousness: patient oriented x3 [facility] Head: Yes normocephalic and Yes atraumatic Face and sinus: Yes face symmetric Mouth: Normal oral and palatal mucosa present, oropharynx normal and moist mucous membranes Eyes General: appearance normal, both eyes and all related structures Periorbital: periorbital findings normal Eyelids: Yes eyelids normal Conjunctivae: conjunctivae normal Sclerae: sclerae normal Pupils: Equal, round and reactive pupils present EOM: EOMs intact bilaterally Neck Neck: Yes full ROM, Yes no lymphadenopathy and Yes supple Resp Auscultation: clear to auscultation bilaterally Cardio Other: S1-S2 present regular rate and rhythm GI Palpation (GI): Soft to palpation, nontender, no guarding and no masses Auscultation: normal bowel sounds Back/Spine/Pelvis Thoracic/Lumbar Spine: straight leg raise negative bilaterally and paraspinal muscle tenderness on the left in the lower lumbar Skin General skin exam: no rashes or lesions noted, no ecchymosis, no erythema, no petechiae and no purpura Neuro General: patient oriented x3, tone normal, moves all extremities, Normal light touch and pain sensation and no focal motor deficits Cranial nerves: Yes Equal, round and reactive pupils present Extrem General: Yes full ROM, Yes no joint enlargement, Yes no pedal edema and Yes no calf tenderness Assessment and Plan Assessment & Plan (1) History of rib fracture: Code(s): Z.81 - Personal history of (healed) traumatic fracture (2) History of fall: Code(s): . - History of falling (3) Low back pain radiating to left leg: Code(s): M54.50 - Low back pain, unspecified; M79.605 - Pain in left leg Plan Continue with home physical therapy, advised patient to mention to her physical therapist her left lower back pain which started after doing some exercises recently. Continue taking ibuprofen 200 mg every 8 hours as needed. apply moist heat to affected area in lower back or may try applying Salonpas patch with lidocaine to affected area twice a day as needed Coding Level of Care Code Est Pt Level 4 (33290) Diagnoses History of rib fracture History of fall Low back pain radiating to left leg M54.50; M79.605
[2023-07-08 09:55] VITALS: BP 138/74; PULSE 92; O2SAT 96; BMI 32.1
== END 2023-07-08 14:59 | disposition home or self-care (01) ==
PROVIDERS: PCP Internal Medicine; Visit Provider Internal Medicine
DX: Z87.81 Personal history of (healed) traumatic fracture (principal); Z91.81 History of falling; M54.50 Low back pain, unspecified; M79.605 Pain in left leg
CPT/HCPCS: 99214

== ENCOUNTER 2023-07-31 09:49 | Outpatient (REF) | payer MEDICARE, SELFPAY ==
[2023-07-31 13:42] LABS: Estimated Average Glucose 151 mg/dL; Hemoglobin A1c % 6.9 % (<6.0)
[2023-07-31 13:58] LABS: Alanine Aminotransferase 26 U/L (0-31); Anion Gap 13 (12-20); Aspartate Amino Transferase 20 U/L (5-31); Blood Urea Nitrogen 16 mg/dL (9-16); Calcium 9.8 mg/dL (8.4-10.2); Carbon Dioxide 24 mmol/L (22-29); Chloride 106 mmol/L (96-108); Cholesterol 204 mg/dL (<200); Estimated Glomerular Filt Rate > 60; Glucose Fasting 173 mg/dL (60-99); HDL Cholesterol 53 mg/dL (>40); LDL Cholesterol Calculated 123 mg/dL (<100); Potassium 4.1 mmol/L (3.3-5.1); Sodium 139 mmol/L (135-145); Triglycerides 140 mg/dL (<150)
[2023-07-31 14:03] LABS: Free T4 (Free Thyroxine) 0.94 ng/dL (0.71-1.85); Thyroid Stimulating Hormone 2.79 uIU/mL (0.32-4.0)
== END 2023-07-31 09:50 | disposition home or self-care (01) ==
LOC: HO.HMGCLDS 09:49
PROVIDERS: PCP Internal Medicine; Visit Provider Internal Medicine
DX: I10 Essential (primary) hypertension (principal); E78.5 Hyperlipidemia, unspecified; E66.9 Obesity, unspecified; E89.0 Postprocedural hypothyroidism; E11.42 Type 2 diabetes mellitus with diabetic polyneuropathy
CPT/HCPCS: 36415; 80048; 80061; 83036; 84439; 84443; 84450; 84460

== ENCOUNTER 2023-10-07 08:29 | Outpatient (AMB) | payer MEDICARE, SELFPAY ==
[2023-10-07 08:32] VITALS: BP 136/72; PULSE 88; O2SAT 97; BMI 31.9
--- NOTE | 2023-10-07 08:32 | A.OFFPC_ITS ---
Vital Signs 10/07/23 08:32 Height 5 ft 3 in Weight 180 lb BMI 31.9 BP 136/72 Blood Pressure Location Rt brachial Position Sitting Pulse 88 Pulse Source Pulse Oximeter Pulse Oximetry (%) 97 Oxygen Delivery Method Room Air Intake Visit Reasons: Physical exam Intake Note: Pt is here today for her PE: Last mammogram 10/03/22, bone density scan 2006, colonoscopy 09/30/2018 Allergies adhesive tape Allergy (Unknown, Verified 10/07/23 08:54) Skin irritation, redness and itching molasses Allergy (Unknown, Verified 10/07/23 08:54) Rhinitis Seasonal Allergies Allergy (Unknown, Verified 10/07/23 08:54) Rhinitis umeclidinium [From INCRUSE ELLIPTA] Adverse Reaction (Intermediate, Verified 10/07/23 08:54) PALPITATIONS Maple Allergy (Unknown, Uncoded 10/07/23 08:54) Rhinitis inhaled corticosteroid Adverse Reaction (Unknown, Uncoded 10/07/23 08:54) palpitations Medication List - Last Reconciled 10/07/23 by Kaylie Vela MD albuterol sulfate 90 mcg/actuation 2 puffs PO Q6H PRN amlodipine 5 mg PO DAILY amlodipine 2.5 mg PO DAILY blood sugar diagnostic ([employer] Ultra Test strips) twice a day blood-glucose meter ([employer] Ultra2 Meter kit) twice a day ciclopirox 0.77% appl topical BID fluocinonide-emollient 0.05 % 1 appl topical BID 10 days fluticasone furoate-vilanterol 100-25 mcg/dose (Breo Ellipta) 1 ea inhalation DAILY ibuprofen 200 mg PO Q8H PRN lancets ([employer] Delica Lancets) As directed twice a day lisinopril 40 mg PO DAILY metformin 1,000 mg (2 x 500 mg) PO BID Synthroid (levothyroxine) 100 mcg PO DAILY NS tiotropium bromide 1 cap inhalation DAILY Tobacco use date assessed: 10/07/23 Fall risk assessment: 2 + Falls in past year Last assessed Fall Risk: 10/07/23 Dental Screening Dental Screen Date: 10/07/23 Did you have a dental visit in the last 12 months?: Yes Did you have a dental problem in the last 6 months where you did not have access to dental care?: Yes Was dental information given to patient?: Patient has dentist HPI Physical exam HPI Details 78 year old Lady with diabetes mellitus type 2, COPD, hypothyroidism, hypertension , obesity, and hyperlipidemia here today for her physical exam. She is up-to-date with her mammogram, done 10/03/22, had a bone density scan 2006, refused further testing. Her last screening colonoscopy was done 09/30/2018 with 2 hyperplastic polyps removed by Dr. Adam, repeat again in 2028. Patient does not want to get mammograms severe wants to do it every 2 years, and does not want to do further bone density testing. [facility] Medical History (Updated 10/07/23 @ 09:30 by Kaylie Vela MD) Fracture of radial head, left, closed Frequent nosebleeds Cervicalgia Arthralgia of hand, right Eczema of both hands Postablative hypothyroidism Benign hematuria Acquired ichthyosis Exercise-induced asthma Graves disease COPD (chronic obstructive pulmonary disease) Arthritis Type 2 diabetes mellitus with diabetic polyneuropathy Essential hypertension Hyperlipidemia LDL goal <100 Obesity (BMI 30.0-34.9) Surgical History History of eyelid surgery History of back surgery Hx of colonoscopy Hx of cholecystectomy Family History Father CVA (cerebral vascular accident) Diabetes Mother Renal disease Bile duct cancer Heart failure CVD (cardiovascular disease) Sister Mental health disorder Social History Household Members: Children Housing: House Alcohol intake: never Patient Tobacco Use Status: Former Tobacco user Years Smoked: 25 yrs e-Cigarette/Vaping Use: Never Used service: No Current occupational status: retired Current occupation: right hand dominant Cognitive needs: No Hearing needs: No Vision needs: Yes Questionnaire PHQ-9 Over the last 2 weeks, how often have you been bothered by any of the following problems? 1. Little interest or pleasure in doing things: several days 2. Feeling down, depressed, or hopeless: not at all 3. Trouble falling or staying asleep, or sleeping too much: several days 4. Feeling tired or having little energy: several days 5. Poor appetite or overeating: several days 6. Feeling bad about yourself - or that you are a failure or have let yourself or your family down: not at all 7. Trouble concentrating on things, such as reading the newspaper or watching television: not at all 8. Moving or speaking so slowly that other people could have noticed. Or the opposite - being so fidgety or restless that you have been moving around a lot more than usual: not at all 9. Thoughts that you would be better off or of hurting yourself in some way: not at all Total score: 4 Depression Screening Interpretation: Negative Depression Screening Done: Yes 02056 - PHQ-9 Billing: Yes Source: Developed by Drs. Josh Ford, Libia Shaikh, Chi Hamilton and colleagues, with an educational archie from [employer]. Thrive Questionnaire Date Thrive assessed: 10/07/23 I am a: Patient What is your living situation today?: I have a steady place to live Within the past 12 months, did the food you bought not last and you didn't have the money to get more?: Never true Within the past 12 months, did you worry whether your food would run out before you got money to buy more?: Never true Do you have trouble paying for medicines?: No Do you have trouble getting transportation to medical appointments?: No Do you have trouble paying your heating and electricity bill?: No Do you have trouble taking care of your child, family member or friend?: No Do you have trouble with day-to-day activities such as bathing, preparing meals, shopping, managing finances, etc.?: No Are you currently unemployed and looking for a job?: No Are you interested in more education?: No THRIVE Score: 0 AUDIT C Alcohol Use Questionnaire (AUDIT-C) 1. How often do you have a drink containing alcohol?: Never Total Score: 0 JAILYN-7 AMB Questionnaire JAILYN-7 Date JAILYN - 7 assessed: 10/07/23 Feeling nervous, anxious, or on edge: 0 = Not at all Not being able to stop or control worryin = Not at all Worrying too much about different things: 0 = Not at all Trouble relaxin = Not at all Being so restless that it is hard to sit still: 0 = Not at all Becoming easily annoyed or irritable: 0 = Not at all Feeling afraid as if something awful might happen: 0 = Not at all Total JAILYN-7 score (0-4 normal; 5-9 mild; 10-14 moderate; 15-21 severe): 0 Source: Developed by Drs. Josh Ford, Libia Shaikh, Chi Hamilton and colleagues, with an educational archie from [employer]. JAILYN-7 Assessment Billing JAILYN-7 Assessment Tool: JAILYN-7 Assessment 99379 Review of Systems Const Reports no additional complaints Eyes Details: He sees Dr. Kyaw Hampton for diabetes retinopathy screening and is scheduled for left cataract surgery on October 27 Reports blurry vision and Reports requires corrective lenses ENT Reports no additional complaints Card Reports no additional complaints Resp Details: has seen Dr Lynne , Pulmonary at [facility] Reports no additional complaints GI Reports no additional complaints Reports no additional complaints Musc Reports no additional complaints Skin/Breast Details: sees Dr cedillo for diabetic foot exam Reports system reviewed and no additional complaints, except as documented Neuro Reports no additional complaints Psych Reports no additional complaints Endo Reports no additional complaints Goldy/Lymph Reports no additional complaints Aller/Immun Reports no additional complaints Physical exam (Primary Care) Vital Signs: Last Vital Signs Pulse 88 10/07/23 08:32 BP 136/72 10/07/23 08:32 Pulse Ox 97 10/07/23 08:32 Oxygen Delivery Method Room Air 10/07/23 08:32 BMI result Body Mass Index 31.9 Tobacco/Smoking Status: Tobacco use Status Tobacco use date assessed 10/07/23 10/07/23 08:41 Patient Tobacco Use Status Former Tobacco user 10/07/23 08:33 e-Cigarette/Vaping Use Never Used 10/07/23 08:33 Depression Screening Interpretation: Negative Thrive Assessment: Date of Thrive Assessment Date Thrive assessed 12/05/22 10/07/23 08:33 Advance Care Planning discussion: Exists, not on file Date of discussion: 10/07/23 Who was present: Patient Forms completed: Health Care Proxy Time spent: 1-15 minutes, not on file Actual minutes spent: 15 Const Other: Alert oriented x3, no acute cardiorespiratory distress noted, ambulatory with assistance of a cane. Orientation/consciousness: patient oriented x3 HENMT Head: Yes normocephalic and Yes atraumatic Face and sinus: Yes face symmetric Mouth: Normal oral and palatal mucosa present, oropharynx normal and moist mucous membranes Eyes General: appearance normal, both eyes and all related structures Periorbital: periorbital findings normal Eyelids: Yes eyelids normal Conjunctivae: conjunctivae normal Sclerae: sclerae normal Pupils: Equal, round and reactive pupils present EOM: EOMs intact bilaterally Neck Neck: Yes full ROM, Yes no lymphadenopathy and Yes supple Chest Chest palpation & inspection: normal inspection of the chest Breast/axilla palpation: normal palpation of the breasts Resp Auscultation: clear to auscultation bilaterally Cardio Other: S1-S2 present regular rate and rhythm GI Palpation (GI): Soft to palpation, nontender, no guarding and no masses Auscultation: normal bowel sounds Back/Spine/Pelvis Thoracic/Lumbar Spine: straight leg raise negative bilaterally and paraspinal muscle tenderness on the left in the lower lumbar Skin General skin exam: no rashes or lesions noted, no ecchymosis, no erythema, no petechiae and no purpura Neuro General: patient oriented x3, tone normal, moves all extremities, Normal light touch and pain sensation and no focal motor deficits Cranial nerves: Yes Equal, round and reactive pupils present Extrem General: Yes full ROM, Yes no joint enlargement, Yes no pedal edema and Yes no calf tenderness Psych Appearance: grossly normal and well kempt Mental Status: mental status grossly normal Speech and movement: Normal speech and movement present Affect: normal affect Attitude: cooperative Thought process: Normal thought process present Thought content: Normal thought content present Results Reviewed Results Reviewed: ENTERED: 07/31/23 JERAMY KIRBY: ORDERED: Met Prof Fast, AST, ALT, Lipid Panel, Free T4, TSH Test Result Flag Reference Sodium 139 135-145 mmol/L Potassium 4.1 3.3-5.1 mmol/L CL 106 96-108 mmol/L CO2 24 22-29 mmol/L Gap 13 12-20 BUN 16 9-16 mg/dL Creat 0.77 0.5-1.4 mg/dL EGFR > 60 NOTE: For -[place]osoth[place] individuals, multiply the result by 1.210. Chronic Kidney Disease: Estimated GFR < 60 mL/min/1.73m2 Severe Kidney Disease: Estimated GFR < 15 mL/min/1.73m2 FBS 173 H 60-99 mg/dL A fasting glucose of 126 mg/dl or greater on more than one occasion is considered diagnostic of diabetes. CA 9.8 8.4-10.2 mg/dL AST (GOT) 20 5-31 U/L ALT (GPT) 26 0-31 U/L Triglyceride 140 <150 mg/dL Desirable Triglyceride: less than 150 mg/dL Borderline High Triglyceride 150-199 mg/dL High Triglyceride: 200-499 mg/dL Very High Triglyceride: greater than or equal to 5OO mg/dL Cholesterol 204 H <200 mg/dL Desirable Cholesterol: less than 200 mg/dL Borderline High Cholesterol: 200-239 mg/dL High Cholesterol: greater than 239 mg/dL LDL Calculated 123 H <100 mg/dL Desirable LDL: less than 100 mg/dL Near Optimal/Above Optimal LDL: 110-129 mg/dL Borderline High LDL: 130-159 mg/dL High LDL: 160-189 mg/dL Very High LDL: greater than or equal to 190 mg/dL HDL 53 >40 mg/dL Desirable HDL: greater than 40 mg/dL Note: This HDL assay may give artificially low results in patients with liver disease. Free T4 0.94 0.71-1.85 ng/dL TSH 3rd Gen. 2.79 0.32-4.0 uIU/mL Note: A sustained TSH level above 2.5 uIU/mL may warra nt further investigation. Laboratory Tests 07/31/23 10:03 Estimat Average Glucose 151 Hemoglobin A1c % 6.9 H Assessment and Plan Assessment & Plan (1) Postablative hypothyroidism: Code(s): E89.0 - Postprocedural hypothyroidism Plan: Continue with Synthroid 100 mcg daily, will check another TSH and free T4 (2) Type 2 diabetes mellitus with diabetic polyneuropathy: Code(s): E11.42 - Type 2 diabetes mellitus with diabetic polyneuropathy Qualifiers: Diabetes mellitus bed bug exterminator insulin use: without bed bug exterminator use Qualified Code(s): E11.42 - Type 2 diabetes mellitus with diabetic polyneuropathy Plan: Recent lab results reviewed with patient, with sugar and hemoglobin A1c stable and at goal . Continue with metformin 1000 mg 1 tablet twice a day and continue to check fasting blood sugar at home, maintain log and bring to next appointment for review. Reinforced diabetic diet and regular exercise with patient. Counseled regarding importance of yearly diabetes retinopathy screening, sees Dr. Hampton. Patient advised to inspect feet daily, for any signs of injury, callus or infection, sees Dr. Cedillo every 4 months. Compliance with diet and regular exercise again stressed. Follow-up in 3 months (3) Essential hypertension: Code(s): I10 - Essential (primary) hypertension Plan: Continue with lisinopril and amlodipine . Reinforced importance of following a low sodium diet, getting regular exercise, and lowering stress levels. (4) Hyperlipidemia LDL goal <100: Code(s): E78.5 - Hyperlipidemia, unspecified (5) Obesity (BMI 30.0-34.9): Code(s): E66.9 - Obesity, unspecified (6) Annual visit for general adult medical examination with abnormal findings: Code(s): Z00.01 - Encounter for general adult medical examination with abnormal findings Plan: Will check appropriate labs. Continue with regular dental visit every 6 months and regular eye exams, currently being seen by Dr. Hampton in [place]. Take adequate calcium in diet and vitamin-D 3 at 2000 IU per cap once a day, in addition to weight-bearing exercises to help maintain good muscle tone and weight control. Declines to get another bone density scan. Will check vitamin- D level and calcium. Instructed to do self-breast exam, and recommended to get yearly mammogram,, had it done last year with normal findings, wants to do screening mammogram every 2 years. Had her screening colonoscopy done by Dr. Adam in 2019 with removal of 2 hyperplastic polyps due again in 2028. She has had COVID vaccines, does not want to get a flu vaccine, up-to-date with her pneumonia vaccination and Tdap as well as shingles vaccine Orders: Orders Aspartate Amino Transferase 1 Month E11.42 - Type 2 diabetes mellitus with diabetic polyneuropathy, E66.9 - Obesity, unspecified, E78.5 - Hyperlipidemia, unspecified, E89.0 - Postprocedural hypothyroidism, I10 - Essential (primary) hypertension, Z00.01 - Encounter for general adult medical examination with abnormal findings Basic Metabolic Panel Fasting 1 Month E11.42 - Type 2 diabetes mellitus with diabetic polyneuropathy, E66.9 - Obesity, unspecified, E78.5 - Hyperlipidemia, unspecified, E89.0 - Postprocedural hypothyroidism, I10 - Essential (primary) hypertension, Z00.01 - Encounter for general adult medical examination with abnormal findings Vitamin D 25-OH Total 1 Month E11.42 - Type 2 diabetes mellitus with diabetic polyneuropathy, E66.9 - Obesity, unspecified, E78.5 - Hyperlipidemia, unspecified, E89.0 - Postprocedural hypothyroidism, I10 - Essential (primary) hypertension, Z00.01 - Encounter for general adult medical examination with abnormal findings Free T4 (Free Thyroxine) 1 Month E11.42 - Type 2 diabetes mellitus with diabetic polyneuropathy, E66.9 - Obesity, unspecified, E78.5 - Hyperlipidemia, unspecified, E89.0 - Postprocedural hypothyroidism, I10 - Essential (primary) hypertension, Z00.01 - Encounter for general adult medical examination with abnormal findings Hemoglobin A1c 1 Month E11.42 - Type 2 diabetes mellitus with diabetic polyn europathy, E66.9 - Obesity, unspecified, E78.5 - Hyperlipidemia, unspecified, E89.0 - Postprocedural hypothyroidism, I10 - Essential (primary) hypertension, Z00.01 - Encounter for general adult medical examination with abnormal findings Alanine Aminotransferase 1 Month E11.42 - Type 2 diabetes mellitus with diabetic polyneuropathy, E66.9 - Obesity, unspecified, E78.5 - Hyperlipidemia, unspecified, E89.0 - Postprocedural hypothyroidism, I10 - Essential (primary) hypertension, Z00.01 - Encounter for general adult medical examination with abnormal findings Lipid Panel 1 Month E11.42 - Type 2 diabetes mellitus with diabetic polyneuropathy, E66.9 - Obesity, unspecified, E78.5 - Hyperlipidemia, unspecified, E89.0 - Postprocedural hypothyroidism, I10 - Essential (primary) hypertension, Z00.01 - Encounter for general adult medical examination with abnormal findings Microalbumin, Random (w Creat) 1 Month E11.42 - Type 2 diabetes mellitus with diabetic polyneuropathy, E66.9 - Obesity, unspecified, E78.5 - Hyperlipidemia, unspecified, E89.0 - Postprocedural hypothyroidism, I10 - Essential (primary) hypertension, Z00.01 - Encounter for general adult medical examination with abnormal findings Thyroid Stimulating Hormone 1 Month E11.42 - Type 2 diabetes mellitus with diabetic polyneuropathy, E66.9 - Obesity, unspecified, E78.5 - Hyperlipidemia, unspecified, E89.0 - Postprocedural hypothyroidism, I10 - Essential (primary) hypertension, Z00.01 - Encounter for general adult medical examination with abnormal findings Coding Level of Care Code Est Pt Prev Care >65y(32108) Diagnoses Postablative hypothyroidism E89.0 Type 2 diabetes mellitus with diabetic polyneuropathy, without long-term current use of insulin E11.42 Diabetes mellitus shelter insulin use: without bed bug exterminator use Essential hypertension I10 Hyperlipidemia LDL goal <100 E78.5 Obesity (BMI 30.0-34.9) E66.9 Annual visit for general adult medical examination with abnormal findings Z00.01 Additional Codes Vital Signs *Quality* - Advance Care Planning discussion: Exists, not on file ([id number]) Vital Signs *Quality* - Time spent: 1-15 minutes, not on file ([id number]) JAILYN-7 Assessment Billing - JAILYN-7 Assessment Tool: JAILYN-7 Assessment 24071 ([id number])
== END 2023-10-07 09:28 | disposition home or self-care (01) ==
PROVIDERS: PCP Internal Medicine; Visit Provider Internal Medicine
DX: Z00.00 Encounter for general adult medical examination without abnormal findings (principal); E11.42 Type 2 diabetes mellitus with diabetic polyneuropathy; E66.9 Obesity, unspecified; Z68.31 Body mass index [BMI] 31.0-31.9, adult; E89.0 Postprocedural hypothyroidism; I10 Essential (primary) hypertension; E78.5 Hyperlipidemia, unspecified
CPT/HCPCS: 1124F; 99397

== ENCOUNTER 2023-10-12 11:44 | Outpatient (AMB) | payer MEDICARE, SELFPAY ==
[2023-10-12 11:56] VITALS: BP 120/60; PULSE 93; TEMP 36.3; O2SAT 96; BMI 31.5
--- NOTE | 2023-10-12 11:56 | AM.OFFWIN_ITS ---
Intake Vital Signs 10/12/23 11:56 Height 5 ft 3 in Weight 178 lb BMI 31.5 BP 120/60 Blood Pressure Location Lt brachial Position Sitting Pulse 93 Pulse Source Pulse Oximeter Temp 97.4 F Temp Source Oral Pulse Oximetry (%) 96 Oxygen Delivery Method Room Air Intake Visit Reasons: EP cough Intake Note: Pt is here today c/o cough Patient Tobacco Use Status: Former Tobacco user Allergies adhesive tape Allergy (Unknown, Verified 10/12/23 11:56) Skin irritation, redness and itching molasses Allergy (Unknown, Verified 10/12/23 11:56) Rhinitis Seasonal Allergies Allergy (Unknown, Verified 10/12/23 11:56) Rhinitis umeclidinium [From INCRUSE ELLIPTA] Adverse Reaction (Intermediate, Verified 10/12/23 11:56) PALPITATIONS Maple Allergy (Unknown, Uncoded 10/12/23 11:56) Rhinitis inhaled corticosteroid Adverse Reaction (Unknown, Uncoded 10/12/23 11:56) palpitations HPI HPI Comments History of Present Illness Details 78-year-old female history of COPD prese nts for cough and sputum production x5 days. Denies fever chills endorses mild abdominal tightness with coughing and shortness of breath PFSH Medical History (Updated 10/07/23 @ 09:30 by Kaylie Vela MD) Fracture of radial head, left, closed Frequent nosebleeds Cervicalgia Arthralgia of hand, right Eczema of both hands Postablative hypothyroidism Benign hematuria Acquired ichthyosis Exercise-induced asthma Graves disease COPD (chronic obstructive pulmonary disease) Arthritis Type 2 diabetes mellitus with diabetic polyneuropathy Essential hypertension Hyperlipidemia LDL goal <100 Obesity (BMI 30.0-34.9) Surgical History History of eyelid surgery History of back surgery Hx of colonoscopy Hx of cholecystectomy Family History Father CVA (cerebral vascular accident) Diabetes Mother Renal disease Bile duct cancer Heart failure CVD (cardiovascular disease) Sister Mental health disorder Social History Household Members: Children Housing: House Alcohol intake: never Patient Tobacco Use Status: Former Tobacco user Years Smoked: 25 yrs e-Cigarette/Vaping Use: Never Used service: No Current occupational status: retired Current occupation: right hand dominant Cognitive needs: No Hearing needs: No Vision needs: Yes Review of Systems Resp Reports chest congestion and Reports cough Physical Exam Vital Signs: Last Vital Signs Temp 97.4 F 10/12/23 11:56 Pulse 93 10/12/23 11:56 BP 120/60 10/12/23 11:56 Pulse Ox 96 10/12/23 11:56 Oxygen Delivery Method Room Air 10/12/23 11:56 BMI result Body Mass Index 31.5 Const General: cooperative, no acute distress and alert Orientation/consciousness: patient oriented x3 Limitations: no limitations HEENT Head: Yes normal to inspection Ears: hearing grossly normal bilaterally and external ears normal General nose exam: Normal external nose present Eyes General: appearance normal, both eyes and all related structures Neck Neck: Yes normal visual inspection Chest Chest palpation & inspection: normal inspection of the chest Resp Other: Mild rhonchi Effort & Inspection: normal respiratory effort, able to speak in complete sentences and no audible wheezes Auscultation: clear to auscultation bilaterally Cardio Rate: regular rate Rhythm: regular rhythm GI Inspection: Yes normal to inspection Palpation (GI): Soft to palpation and nontender Skin General skin exam: no rashes or lesions noted Neuro General: patient oriented x3 Psych Appearance: grossly normal Mental Status: mental status grossly normal Speech and movement: Normal speech and movement present Affect: normal affect Attitude: cooperative Thought process: Normal thought process present Thought content: Normal thought content present Assessment & Plan Assessment & Plan (1) URI (upper respiratory infection): Code(s): J06.9 - Acute upper respiratory infection, unspecified Qualifiers: URI type: unspecified URI Qualified Code(s): J06.9 - Acute upper respiratory infection, unspecified Plan Suspect viral URI versus COPD exacerbation. Patient in no acute extremis. Given productive sputum and history of COPD will cover with azithromycin. Medications: New benzonatate 100 mg PO BID 5 days PRN 10 caps 0RF cough azithromycin For 250 mg dose pack: take 500 mg today (day 1), then 250 mg for 4 days (days 2-5) PO 6 tabs 0RF Coding Level of Care Code Est Pt Level 3 (05295) Diagnoses Upper respiratory tract infection, unspecified type J06.9 URI type: unspecified URI
== END 2023-10-12 12:32 | disposition home or self-care (01) ==
PROVIDERS: PCP Internal Medicine; Visit Provider Physician Assistant
DX: J06.9 Acute upper respiratory infection, unspecified (principal)
CPT/HCPCS: 99213

== ENCOUNTER 2023-10-31 09:24 | Outpatient (AMB) | payer MEDICARE, SELFPAY ==
[2023-10-31 09:37] VITALS: BP 146/68; PULSE 84; O2SAT 96; BMI 31.9
--- NOTE | 2023-10-31 09:37 | A.OFFPC_ITS ---
Vital Signs 10/31/23 09:37 Height 5 ft 3 in Weight 180 lb 2 oz BMI 31.9 BP 146/68 H Blood Pressure Location Lt brachial Position Sitting Pulse 84 Pulse Source Pulse Oximeter Pulse Oximetry (%) 96 Oxygen Delivery Method Room Air Intake Visit Reasons: Lt eye cataract Dr. Chávez Eye physician Allergies adhesive tape Allergy (Unknown, Verified 10/31/23 10:00) Skin irritation, redness and itching molasses Allergy (Unknown, Verified 10/31/23 10:00) Rhinitis Seasonal Allergies Allergy (Unknown, Verified 10/31/23 10:00) Rhinitis umeclidinium [From INCRUSE ELLIPTA] Adverse Reaction (Intermediate, Verified 10/31/23 10:00) PALPITATIONS Maple Allergy (Unknown, Uncoded 10/31/23 10:00) Rhinitis inhaled corticosteroid Adverse Reaction (Unknown, Uncoded 10/31/23 10:00) palpitations Medication List - Last Reconciled 10/31/23 by Kaylie Vela MD albuterol sulfate 90 mcg/actuation 2 puffs PO Q6H PRN amlodipine 5 mg PO DAILY amlodipine 2.5 mg PO DAILY blood sugar diagnostic ([employer] Ultra Test strips) twice a day blood-glucose meter ([employer] Ultra2 Meter kit) twice a day ciclopirox 0.77% appl topical BID fluocinonide-emollient 0.05 % 1 appl topical BID 10 days fluticasone furoate-vilanterol 100-25 mcg/dose (Breo Ellipta) 1 ea inhalation DAILY ibuprofen 200 mg PO Q8H PRN lancets ([employer] Delica Lancets) As directed twice a day lisinopril 40 mg PO DAILY metformin 1,000 mg (2 x 500 mg) PO BID Synthroid (levothyroxine) 100 mcg PO DAILY NS tiotropium bromide 1 cap inhalation DAILY Tobacco use date assessed: 10/31/23 Fall risk assessment: 1 Fall in past year Last assessed Fall Risk: 10/31/23 Dental Screening Dental Screen Date: 10/31/23 Did you have a dental visit in the last 12 months?: Yes Did you have a dental problem in the last 6 months where you did not have access to dental care?: No Was dental information given to patient?: Patient has dentist HPI Lt eye cataract Dr. Chávez Eye physician HPI Details 78-year-old lady here today for preopera tive exam for cataract surgery, OS , scheduled for 11/07/[address] Barron. She has diabetes mellitus currently on metformin a 1000 mg taken twice a day, take Synthroid 100 mcg daily for her hypothyroidism currently taking lisinopril 40 mg once a day and the amlodipine 2.5 mg once a day for hypertension. She has hyperlipidemia which she has been trying to control through diet and exercise, does not want to take statin, believes they are poison to the body . She is currently being followed for her COPD by Dr. Hough as, controlled on Spiriva, Breo Ellipta and as needed albuterol inhaler. Her blood pressure today is elevated, but patient states that she is just took her medicine prior to coming for her appointment and has had 2 cups of coffee as well before the visit peer denies any chest pain, no shortness of breath, no lightheadedness or palpitations. She had fasting labs done today which showed diabetes mellitus not to wear well controlled with hemoglobin A1c at 7.7%, up from 6.9% 3 months ago, lipids however are within normal limits except for mildly elevated LDL cholesterol, normal thyroid levels and vitamin-D. EKG done today showed normal sinus rhythm with no acute ST-T changes seen, no change from EKG done in 2019. Patient currently without any his cardiac or respiratory symptom. [facility] Medical History (Updated 11/01/23 @ 06:27 by Kaylie Vela MD) Fracture of radial head, left, closed Cervicalgia Arthralgia of hand, right Eczema of both hands Postablative hypothyroidism Benign hematuria Acquired ichthyosis Exercise-induced asthma Graves disease COPD (chronic obstructive pulmonary disease) Arthritis Type 2 diabetes mellitus with diabetic polyneuropathy Essential hypertension Hyperlipidemia LDL goal <100 Obesity (BMI 30.0-34.9) Surgical History History of eyelid surgery History of back surgery Hx of colonoscopy Hx of cholecystectomy Family History Father CVA (cerebral vascular accident) Diabetes Mother Renal disease Bile duct cancer Heart failure CVD (cardiovascular disease) Sister Mental health disorder Social History Household Members: Children Housing: House Alcohol intake: never Patient Tobacco Use Status: Former Tobacco user Years Smoked: 25 yrs e-Cigarette/Vaping Use: Never Used service: No Current occupational status: retired Current occupation: right hand dominant Cognitive needs: No Hearing needs: No Vision needs: Yes Questionnaire PHQ-9 Over the last 2 weeks, how often have you been bothered by any of the following problems? Depression Screening Interpretation: Negative Depression Screening Done: Yes Source: Developed by Drs. Josh Ford, Libia Shaikh, Chi Hamilton and colleagues, with an educational archie from [employer]. Thrive Questionnaire Date Thrive assessed: 10/07/23 AUDIT C Alcohol Use Questionnaire (AUDIT-C) 1. How often do you have a drink containing alcohol?: Never 3. How often do you have six or more drinks on one occasion?: Never Total Score: 0 Score Reviewed/Action Taken: Yes JAILYN-7 AMB Questionnaire JAILYN-7 Date JAILYN - 7 assessed: 10/07/23 Source: Developed by Drs. Josh Ford, Libia Shaikh, Chi Hamilton and colleagues, with an educational archie from [employer]. Review of Systems Const Reports no additional complaints, Denies headache(s) and Denies weakness Eyes Reports blurry vision (Scheduled for cataract surgery OS) and Reports requires corrective lenses ENT Reports no additional complaints, Denies dizziness and Denies headache(s) Card Denies chest pain, Denies chest pain with activity, Denies rapid heart rate, Denies irregular heart rhythm, Denies lightheadedness, Denies palpitations and Denies dyspnea Resp Details: has seen Dr Lynne , Pulmonary at [facility] Reports no additional complaints and Denies dyspnea GI Reports no additional complaints Reports no additional complaints Musc Reports no additional complaints Skin/Breast Details: sees Dr sykes for diabetic foot exam Reports system reviewed and no additional complaints, except as documented Neuro Denies dizziness, Denies headache(s), Denies focal weakness and Denies weakness Psych Reports no additional complaints Endo Denies polyphagia, Denies polydipsia, Denies polyuria and Denies palpitations Goldy/Lymph Reports no additional complaints Aller/Immun Reports no additional complaints Physical exam (Primary Care) Vital Signs: Last Vital Signs Pulse 84 10/31/23 09:37 BP 146/68 H 10/31/23 09:37 Pulse Ox 96 10/31/23 09:37 Oxygen Delivery Method Room Air 10/31/23 09:37 BMI result Body Mass Index 31.9 Tobacco/Smoking Status: Tobacco use Status Tobacco use date assessed 10/31/23 10/31/23 09:41 Patient Tobacco Use Status Former Tobacco user 10/31/23 09:41 e-Cigarette/Vaping Use Never Used 10/31/23 09:41 Depression Screening Interpretation: Negative Thrive Assessment: Date of Thrive Assessment Date Thrive assessed 10/07/23 10/31/23 09:41 Advance Care Planning discussion: Exists, not on file Date of discussion: 10/07/23 Who was present: Patient Forms completed: Health Care Proxy Time spent: 1-15 minutes, not on file Actual minutes spent: 15 Const Other: Alert oriented x3, no acute cardiorespiratory distress noted, ambulatory with assistance of a cane. Orientation/consciousness: patient oriented x3 HENMT Head: Yes normocephalic and Yes atraumatic Face and sinus: Yes face symmetric Mouth: Normal oral and palatal mucosa present, oropharynx normal and moist mucous membranes Eyes General: appearance normal, both eyes and all related structures Pupils: Equal, round and reactive pupils present EOM: EOMs intact bilaterally Neck Neck: Yes full ROM, Yes no lymphadenopathy and Yes supple Resp Auscultation: clear to auscultation bilaterally Cardio Other: S1-S2 present regular rate and rhythm GI Palpation (GI): Soft to palpation, nontender, no guarding and no masses Auscultation: normal bowel sounds Skin General skin exam: no rashes or lesions noted, no ecchymosis, no erythema, no petechiae and no purpura Neuro General: patient oriented x3, tone normal, moves all extremities, Normal light touch and pain sensation and no focal motor deficits Cranial nerves: Yes Equal, round and reactive pupils present Extrem General: Yes full ROM, Yes no joint enlargement, Yes no pedal edema and Yes no calf tenderness Psych Appearance: grossly normal and well kempt Mental Status: mental status grossly normal Speech and movement: Normal speech and movement present Affect: normal affect Attitude: cooperative Thought process: Normal thought process present Thought content: Normal thought content present Results Reviewed Results Reviewed: Laboratory Tests 07/07/19 07/07/19 07/31/23 12:50 12:50 10:03 Hgb 14.4 Hct 41.4 Estimat Average Glucose 151 Hemoglobin A1c % 6.9 H 10/31/23 10/31/23 10:41 10:41 Hgb Hct Estimat Average Glucose 174 Hemoglobin A1c % 7.7 H Name: Amarilis Wu Age/Sex: 78/F : 1945 Unit#: [id number] Attend Dr: Kaylie Vela MD Re10/31/23 Status: DEP REF [facility] Disch: SPEC : [id number] MICHAEL: 10/31/23 STATUS: COMP REQ : [id number] RECD: 10/31/23-[address]: Kaylie Vela MD COMP: 10/31/23 ENTERED: 10/31/23-[address]: ORDERED: Met Prof Fast, AST, ALT, Lipid Panel, Vitamin D 25-OH, Free T4, TSH Test Result Flag Reference Sodium 139 135-145 mmol/L Potassium 3.8 3.3-5.1 mmol/L CL 106 96-108 mmol/L CO2 26 22-29 mmol/L Gap 11 L 12-20 BUN 18 H 9-16 mg/dL Creat 0.68 0.5-1.4 mg/dL EGFR > 60 NOTE: For -[place] individuals, multiply the result by 1.210. Chronic Kidney Disease: Estimated GFR < 60 mL/min/1.73m2 Severe Kidney Disease: Estimated GFR < 15 mL/min/1.73m2 FBS 143 H 60-99 mg/dL A fasting glucose of 126 mg/dl or greater on more than one occasion is considered diagnostic of diabetes. CA 9.0 # 8.4-10.2 mg/dL AST (GOT) 18 5-31 U/L ALT (GPT) 17 0-31 U/L Triglyceride 117 <150 mg/dL Desirable Triglyceride: less than 150 mg/dL Borderline High Triglyceride 150-199 mg/dL High Triglyceride: 200-499 mg/dL Very High Triglyceride: greater than or equal to 5OO mg/dL Cholesterol 176 <200 mg/dL Desirable Cholesterol: less than 200 mg/dL Borderline High Cholesterol: 200-239 mg/dL High Cholesterol: greater than 239 mg/dL LDL Calculated 104 H <100 mg/dL Desirable LDL: less than 100 mg/dL Near Optimal/Above Optimal LDL: 110-129 mg/dL Borderline High LDL: 130-159 mg/dL High LDL: 160-189 mg/dL Very High LDL: greater than or equal to 190 mg/dL HDL 49 >40 mg/dL Desirable HDL: greater than 40 mg/dL Note: This HDL assay may give artificially low results in patients with liver disease. Vit D 25-OH Tot 49.9 >30 ng/mL Health Based Reference Values* < 20 ng/mL Deficient 20-30 ng/mL Insufficient > 30 ng/mL Sufficient *Cristhian RENDON. N Engl J Med. 2007;357:266-280 Care must be taken in interpreting Vitamin D results from different laboratories and methodologies. Published data demonstrated that results from patients undergoing hemodialysis may show a negative bias when tested with various automated 25-OH vitamin D assays when compared to LC-MS/MS. When testing samples from patients whose predominant form of Vitamin D is Vitamin D2, such as patients receiving Vitamin D2 supplementation, results that are subtherapeutic should be confirmed with another method such as LC-MS/MS. Free T4 1.29 0.71-1.85 ng/dL TSH 3rd Gen. 0.94 0.32-4.0 uIU/mL TSH 3rd Generation ([facility]) Assessment and Plan Assessment & Plan (1) Preoperative examination: Code(s): Z01.818 - Encounter for other preprocedural examination Plan: 78 year old lady, with history of COPD, diabetes mellitus , hypertension, hyperlipidemia and [id number], here today for a preoperative exam for cataract surgery , OS , scheduled for 11/07/2023 . Preoperative exam is unremarkable, recent fasting labsEK done showed results within acceptable limis. EKGP showed normal sinus rhythm with no acute ST-T changes seen, no change from previous EKG of 2019 . She has a low cardiac risk index for proposed surgery (2) Type 2 diabetes mellitus with diabetic polyneuropathy: Code(s): E11.42 - Type 2 diabetes mellitus with diabetic polyneuropathy Qualifiers: Diabetes mellitus terminal makeup operator insulin use: without terminal makeup operator use Qualified Code(s): E11.42 - Type 2 diabetes mellitus with diabetic polyneuropathy Plan: Latest hemoglobin A1c today is at 7.7%, will continue on metformin a 1000 mg 1 tablet twice a day but reinforced importance of following her recommended diet and getting regular exercise. Will see her back for follow-up in 3 months after repeat labs done. Continue checking blood sugar at home keep record of the readings and bring on next visit for review (3) Essential hypertension: Code(s): I10 - Essential (primary) hypertension Plan: Blood pressure slightly elevated on today's visit, will continue on lisinopril 40 mg daily, reinforced importance of following a low-salt diet and getting regular exercise. Smear for Cris follow-up in 3 month (4) Postablative hypothyroidism: Code(s): E89.0 - Postprocedural hypothyroidism Plan: Thyroid levels are within normal limits, will continue current dose of Synthroid 100 mcg daily in a.m. an hour before breakfast. Recheck levels again in 3 (5) COPD (chronic obstructive pulmonary disease): Comment: Followed at [facility], sees Dr Lynne Code(s): J44.9 - Chronic obstructive pulmonary disease, unspecified Plan: Currently stable on Breo Ellipta, tiotropium inhaler and as needed albuterol, followed by Pulmonary (6) Hyperlipidemia LDL goal <100: Code(s): E78.5 - Hyperlipidemia, unspecified Plan: Reviewed recent fasting lipid profile with patient with LDL cholesterol almost at goal of less than 100 mg/dL. . Declines use of statin, adherence to low- cholesterol diet and regular exercise, at least 30 minutes 3 to 4 times a week advised. Follow-up scheduled with repeat fasting lipid panel in 3 months. Coding Level of Care Code Est Pt Level 4 (34235) Diagnoses Preoperative examination Z01.818 Type 2 diabetes mellitus with diabetic polyneuropathy, without long-term current use of insulin E11.42 Diabetes mellitus terminal makeup operator insulin use: without skilled nursing use Essential hypertension I10 Postablative hypothyroidism E89.0 COPD (chronic obstructive pulmonary disease) J44.9 Hyperlipidemia LDL goal <100 E78.5 Additional Codes Vital Signs *Quality* - Advance Care Planning discussion: Exists, not on file ([id number]) Vital Signs *Quality* - Time spent: 1-15 minutes, not on file ([id number])
== END 2023-10-31 10:23 | disposition home or self-care (01) ==
PROVIDERS: PCP Internal Medicine; Visit Provider Internal Medicine
DX: E11.42 Type 2 diabetes mellitus with diabetic polyneuropathy (principal); J44.9 Chronic obstructive pulmonary disease, unspecified; Z01.818 Encounter for other preprocedural examination; I10 Essential (primary) hypertension; E89.0 Postprocedural hypothyroidism; E78.5 Hyperlipidemia, unspecified; Z00.00 Encounter for general adult medical examination without abnormal findings
CPT/HCPCS: 1124F; 99214

== ENCOUNTER 2023-10-31 10:25 | Outpatient (REF) | payer MEDICARE, SELFPAY ==
[2023-10-31 13:29] LABS: Estimated Average Glucose 174 mg/dL; Hemoglobin A1c % 7.7 % (<6.0)
[2023-10-31 13:45] LABS: Alanine Aminotransferase 17 U/L (0-31); Anion Gap 11 (12-20); Aspartate Amino Transferase 18 U/L (5-31); Blood Urea Nitrogen 18 mg/dL (9-16); Carbon Dioxide 26 mmol/L (22-29); Chloride 106 mmol/L (96-108); Cholesterol 176 mg/dL (<200); Estimated Glomerular Filt Rate > 60; Glucose Fasting 143 mg/dL (60-99); HDL Cholesterol 49 mg/dL (>40); LDL Cholesterol Calculated 104 mg/dL (<100); Potassium 3.8 mmol/L (3.3-5.1); Sodium 139 mmol/L (135-145); Triglycerides 117 mg/dL (<150)
[2023-10-31 13:51] LABS: Free T4 (Free Thyroxine) 1.29 ng/dL (0.71-1.85); Thyroid Stimulating Hormone 0.94 uIU/mL (0.32-4.0); Vitamin D 25-OH Total 49.9 ng/mL (>30)
[2023-10-31 14:00] LABS: Creatinine Urine 96.61 mg/dL; Microalbum/Creatinine Ratio Ur 151.1 ug/mg cr (<30)
== END 2023-10-31 10:26 | disposition home or self-care (01) ==
LOC: HO.HMGCLDS 10:25
PROVIDERS: PCP Internal Medicine; Visit Provider Internal Medicine
DX: Z00.01 Encounter for general adult medical examination with abnormal findings (principal); E89.0 Postprocedural hypothyroidism; E11.42 Type 2 diabetes mellitus with diabetic polyneuropathy; E78.5 Hyperlipidemia, unspecified; E66.9 Obesity, unspecified; I10 Essential (primary) hypertension
CPT/HCPCS: 36415; 80048; 80061; 82043; 82306; 82570; 83036; 84439; 84443; 84450; 84460

== ENCOUNTER 2023-12-09 11:51 | Outpatient (AMB) | payer MEDICARE, SELFPAY ==
[2023-12-09 12:47] VITALS: BP 118/60; PULSE 97; TEMP 36.9; O2SAT 95; BMI 30.3
--- NOTE | 2023-12-09 12:47 | AM.OFFWIN_ITS ---
Intake Vital Signs 12/09/23 12:47 Height 5 ft 3 in Weight 171 lb BMI 30.3 BP 118/60 Blood Pressure Location Lt brachial Position Sitting Pulse 97 Pulse Source Pulse Oximeter Temp 98.4 F Temp Source Temporal Artery Scan Pulse Oximetry (%) 95 Oxygen Delivery Method Room Air Intake Visit Reasons: Sciatic Pain lower left back (lobby) Intake Note: pt is here today for sciatic pain lower lft back started 2 weeks ago Patient Tobacco Use Status: Former Tobacco user Allergies adhesive tape Allergy (Unknown, Verified 12/09/23 13:06) Skin irritation, redness and itching molasses Allergy (Unknown, Verified 12/09/23 13:06) Rhinitis Seasonal Allergies Allergy (Unknown, Verified 12/09/23 13:06) Rhinitis umeclidinium [From INCRUSE ELLIPTA] Adverse Reaction (Intermediate, Verified 12/09/23 13:06) PALPITATIONS Maple Allergy (Unknown, Uncoded 10/31/23 10:00) Rhinitis inhaled corticosteroid Adverse Reaction (Unknown, Uncoded 10/31/23 10:00) palpitations Do you need a note to return to daycare/school/sports/work: No HPI HPI Comments History of Present Illness Details Patient presents to the walk-in for sick visit Complaining of left lower back pain for last 2 weeks She reports it started while she was lying in bed and stretched after she woke up. Patient has been in contact with primary care doctor, initially given nabumetone which did not help her pain. She was then given tramadol 4 days ago, one-week supply, which has given her some relief. Patient has requested her primary care doctor refer her back to Dr. Lee who previously did surgery on her lumbar spine. She was told that a referral could only replaced after she was evaluated by provider. Therefore she came to the walk-in today for evaluation. Denies red flag symptoms including new loss of bowel, bladder or saddle anesthesia. She reports last dose of medication was her tramadol that she took overnight. ON LICENSE OF [facility] Medical History (Updated 12/09/23 @ 14:00 by Skylar Medrano, DOMI, [employer]) Fracture of radial head, left, closed Cervicalgia Arthralgia of hand, right Eczema of both hands Postablative hypothyroidism Benign hematuria Acquired ichthyosis Exercise-induced asthma Graves disease COPD (chronic obstructive pulmonary disease) Arthritis Type 2 diabetes mellitus with diabetic polyneuropathy Essential hypertension Hyperlipidemia LDL goal <100 Obesity (BMI 30.0-34.9) Surgical History History of eyelid surgery History of back surgery Hx of colonoscopy Hx of cholecystectomy Family History Father CVA (cerebral vascular accident) Diabetes Mother Renal disease Bile duct cancer Heart failure CVD (cardiovascular disease) Sister Mental health disorder Social History Household Members: Children Housing: House Alcohol intake: never Patient Tobacco Use Status: Former Tobacco user Years Smoked: 25 yrs e-Cigarette/Vaping Use: Never Used service: No Current occupational status: retired Current occupation: right hand dominant Cognitive needs: No Hearing needs: No Vision needs: Yes Review of Systems Const All systems reviewed & are unremarkable except as noted in HPI and below Physical Exam Vital Signs: Last Vital Signs Temp 98.4 F 12/09/23 12:47 Pulse 97 12/09/23 12:47 BP 118/60 12/09/23 12:47 Pulse Ox 95 12/09/23 12:47 Oxygen Delivery Method Room Air 12/09/23 12:47 BMI result Body Mass Index 30.3 General: awake, alert, oriented. Answers questions appropriately. Fully engaged in examination. Skin: warm, dry, intact HEENT: Normocephalic. Hearing intact. Cardiac: External chest normal in appearance. Respiratory: No cough, audible wheezing or stridor. Abdomen: without gross distension. MS: No obvious swelling or deformities. Able to transition from sit to stand unassisted. Ambulates with bilaterally normal heel strike and toe off Bilateral lower extremity strength 5/5 Tenderness to palpation over left PSIS and lumbar midline vertebrae, left lumbar paraspinal muscles Thigh thrust negative, Gaenslen negative SLR positive on the left Neurological: Oriented to person, place, time and situation. Thought process intact. Ambulates with use of walker, antalgic gait Psychiatric: Appropriate mood and affect. Good judgment and insight. Office Meds ketorolac 30 mg/mL (1 mL) injection solution Performing Provider: Skylar Medrano APRN, [employer] [place] [facility] Administered by: Mariam Hernandez RN on 12/09/23 13:57 Dose Route Admin Location Dispensed Lot Number Expiration Date NDC Maintenance Mechanic Supervisor 30 mg IM left gluteal 1 mL [id number] 10/24/24 3196-0765-51 [employer]OSPIRA/PFIZER Results Reviewed Results Reviewed: Lumbar spine x-ray ordered and independently reviewed: No fracture Assessment & Plan Assessment & Plan (1) Lumbar radiculopathy: Code(s): M54.16 - Radiculopathy, lumbar region (2) Sacroiliac joint dysfunction of left side: Code(s): M53.3 - Sacrococcygeal disorders, not elsewhere classified Plan X-ray lumbar spine ordered and independently evaluated: No fracture Toradol injection provided to patient in the office today New Rx: Prednisone 40 mg p.o. daily x5 days. Patient advised on cautions views. Monitor blood sugars carefully while taking this medication. Continue with tramadol as prescribed by primary care doctor. Continue with plan for evaluation by Dr. Greene, patient to discuss further with primary care doctor to obtain referral. All questions and concerns answered, patient agrees with plan. Follow-up with PCP or the walk-in for any new or worsening symptoms. Patient advised on red flag symptoms and when to seek treatment in the emergency room. Orders: Orders XR lumbar spine 2-3V Today M54.9 - Dorsalgia, unspecified AMB Ketorolac Injection Today M54.9 - Dorsalgia, unspecified Medications: New prednisone 40 mg (2 x 20 mg) PO DAILY 5 days 10 tabs 0RF Coding Level of Care Code Est Pt Level 4 (07578) Diagnoses Lumbar radiculopathy M54.16 Sacroiliac joint dysfunction of left side M53.3
== END 2023-12-09 14:05 | disposition home or self-care (01) ==
PROVIDERS: PCP Internal Medicine; Visit Provider Registered Nurse Emergency
DX: M54.16 Radiculopathy, lumbar region (principal); M53.3 Sacrococcygeal disorders, not elsewhere classified; M54.9 Dorsalgia, unspecified
CPT/HCPCS: 96372; 99214; J1885

== ENCOUNTER 2023-12-09 13:52 | Outpatient (REF) | payer MEDICARE, SELFPAY ==
--- NOTE | ~2023-12-09 | XR_ITS ---
EXAMINATION: XR LUMBOSACRAL SPINE CLINICAL INFORMATION: Back pain. COMPARISON: MRI lumbar spine dated 05/22/2017. TECHNIQUE: Three views of the lumbosacral spine. FINDINGS: There are 5 nonrib-bearing lumbar vertebrae. Lumbar spinal alignment is anatomic in the sagittal projection. Vertebral body heights are maintained. There is mild deformity of the superior endplate of L2, unchanged from prior MRI. There is multilevel degenerative disc disease, most pronounced at L4-L5 and L2-L3. There is degenerative disc disease at T12-L1. There is multilevel facet arthropathy, most pronounced at L4-L5 and L5-S1. There is narrowing of the L4-L5 and L5-S1 neural foramina. No acute lumbar spine fracture. There is dense calcification of the visualized aorta. There are cholecystectomy clips. There is mild arthrosis of the sacroiliac joints. There are degenerative changes of the symphysis pubis. The bowel gas pattern is nonobstructive. XR/XR lumbar spine 2-3V IMPRESSION: No acute osseous lumbar spine abnormality. Lumbar spondylosis as described.
== END 2023-12-09 13:53 | disposition home or self-care (01) ==
LOC: HO.HMGCX 13:52
PROVIDERS: PCP Internal Medicine; Visit Provider Registered Nurse Emergency
DX: M54.9 Dorsalgia, unspecified (principal)
CPT/HCPCS: 72100

== ENCOUNTER 2024-03-03 07:26 | Outpatient (REF) | payer MEDICARE, SELFPAY ==
[2024-03-03 10:29] LABS: Estimated Average Glucose 148 mg/dL; Hemoglobin A1c % 6.8 % (<6.0)
[2024-03-03 11:08] LABS: Alanine Aminotransferase 16 U/L (0-31); Anion Gap 14 (12-20); Aspartate Amino Transferase 16 U/L (5-31); Blood Urea Nitrogen 23 mg/dL (9-16); Calcium 9.7 mg/dL (8.4-10.2); Carbon Dioxide 25 mmol/L (22-29); Chloride 107 mmol/L (96-108); Cholesterol 169 mg/dL (<200); Estimated Glomerular Filt Rate > 60; Glucose Fasting 138 mg/dL (60-99); HDL Cholesterol 41 mg/dL (>40); LDL Cholesterol Calculated 91 mg/dL (<100); Potassium 4.5 mmol/L (3.3-5.1); Sodium 141 mmol/L (135-145); Triglycerides 189 mg/dL (<150)
[2024-03-03 11:27] LABS: Free T4 (Free Thyroxine) 0.98 ng/dL (0.71-1.85); Thyroid Stimulating Hormone 0.76 uIU/mL (0.32-4.0)
== END 2024-03-03 07:27 | disposition home or self-care (01) ==
LOC: HO.HMGCLDS 07:26
PROVIDERS: PCP Internal Medicine; Visit Provider Internal Medicine
DX: E11.42 Type 2 diabetes mellitus with diabetic polyneuropathy (principal); I10 Essential (primary) hypertension; E78.5 Hyperlipidemia, unspecified; E66.9 Obesity, unspecified; E89.0 Postprocedural hypothyroidism
CPT/HCPCS: 36415; 80048; 80061; 83036; 84439; 84443; 84450; 84460

== ENCOUNTER 2024-03-03 11:28 | Outpatient (AMB) | payer MEDICARE, SELFPAY ==
[2024-03-03 11:34] VITALS: BP 136/80; PULSE 87; O2SAT 97; BMI 30.6
--- NOTE | 2024-03-03 11:34 | A.OFFPC_ITS ---
Vital Signs 03/03/24 11:34 Height 5 ft 3 in Weight 173 lb BMI 30.6 BP 136/80 Blood Pressure Location Lt brachial Position Sitting Pulse 87 Pulse Source Pulse Oximeter Pulse Oximetry (%) 97 Oxygen Delivery Method Room Air Intake Visit Reasons: 4 month follow up Intake Note: Pt is here today for her 4mo. f/u Allergies adhesive tape Allergy (Unknown, Verified 03/03/24 11:57) Skin irritation, redness and itching molasses Allergy (Unknown, Verified 03/03/24 11:57) Rhinitis Seasonal Allergies Allergy (Unknown, Verified 03/03/24 11:57) Rhinitis umeclidinium [From INCRUSE ELLIPTA] Adverse Reaction (Intermediate, Verified 03/03/24 11:57) PALPITATIONS Maple Allergy (Unknown, Uncoded 03/03/24 11:57) Rhinitis inhaled corticosteroid Adverse Reaction (Unknown, Uncoded 03/03/24 11:57) palpitations Medication List - Last Reconciled 03/03/24 by Kaylie Vela MD acetaminophen 650 mg PO Q4H PRN albuterol sulfate 90 mcg/actuation 2 puffs PO Q6H PRN amlodipine 5 mg PO DAILY amlodipine 2.5 mg PO DAILY blood sugar diagnostic (Suso Ultra Test strips) twice a day blood-glucose meter (Suso Ultra2 Meter kit) twice a day ciclopirox 0.77% appl topical BID fluocinonide-emollient 0.05 % 1 appl topical BID 10 days fluticasone furoate-vilanterol 100-25 mcg/dose (Breo Ellipta) 1 ea inhalation DAILY ibuprofen (IBU) mg PO lancets ([employer] Delica Lancets) As directed twice a day lisinopril 40 mg PO DAILY metformin 1,000 mg (2 x 500 mg) PO BID Synthroid (levothyroxine) 100 mcg PO DAILY NS tiotropium bromide 1 cap inhalation DAILY Tobacco use date assessed: 03/03/24 Fall risk assessment: No Falls in past year Last assessed Fall Risk: 03/03/24 Dental Screening Dental Screen Date: 03/03/24 Did you have a dental visit in the last 12 months?: No Did you have a dental problem in the last 6 months where you did not have access to dental care?: No Was dental information given to patient?: Patient has dentist HPI 4 month follow up HPI Details 78-year-old lady here today for her follow-up. She has diabetes mellitus, currently on metformin a 1000 mg taken twice a day, takes Synthroid 100 mcg daily for her hypothyroidism and is on lisinopril 40 mg once a day and the amlodipine 2.5 mg once a day for hypertension. She has hyperlipidemia which she has been trying to control through diet and exercise, does not want to take statin, believes they are poison to the body . [facility] Medical History Fracture of radial head, left, closed Cervicalgia Arthralgia of hand, right Eczema of both hands Postablative hypothyroidism Benign hematuria Acquired ichthyosis Exercise-induced asthma Graves disease COPD (chronic obstructive pulmonary disease) Arthritis Type 2 diabetes mellitus with diabetic polyneuropathy Essential hypertension Hyperlipidemia LDL goal <100 Obesity (BMI 30.0-34.9) Surgical History History of eyelid surgery History of back surgery Hx of colonoscopy Hx of cholecystectomy Family History Father CVA (cerebral vascular accident) Diabetes Mother Renal disease Bile duct cancer Heart failure CVD (cardiovascular disease) Sister Mental health disorder Social History Household Members: Children Housing: House Alcohol intake: never Patient Tobacco Use Status: Former Tobacco user Years Smoked: 25 yrs e-Cigarette/Vaping Use: Never Used service: No Current occupational status: retired Current occupation: right hand dominant Cognitive needs: No Hearing needs: No Vision needs: Yes Questionnaire Thrive Questionnaire Date Thrive assessed: 10/07/23 JAILYN-7 AMB Questionnaire JAILYN-7 Date JAILYN - 7 assessed: 10/07/23 Source: Developed by Drs. Josh Ford, Libia Shaikh, Chi Hamilton and colleagues, with an educational archie from [employer] Review of Systems Const Reports no additional complaints, Denies headache(s) and Denies weakness Eyes Reports no additional complaints ENT Reports no additional complaints, Denies dizziness and Denies headache(s) Card Denies chest pain, Denies chest pain with activity, Denies rapid heart rate, Denies irregular heart rhythm, Denies lightheadedness, Denies palpitations and Denies dyspnea Resp Details: has seen Dr Lynne , Pulmonary at [facility] Reports no additional complaints and Denies dyspnea GI Reports no additional complaints Reports no additional complaints Musc Reports no additional complaints Skin/Breast Details: sees Dr sykes for diabetic foot exam Reports system reviewed and no additional complaints, except as documented Neuro Denies dizziness, Denies headache(s), Denies focal weakness and Denies weakness Psych Reports no additional complaints Endo Denies polyphagia, Denies polydipsia, Denies polyuria and Denies palpitations Goldy/Lymph Reports no additional complaints Aller/Immun Reports no additional complaints Physical exam (Primary Care) Vital Signs: Last Vital Signs Pulse 87 03/03/24 11:34 BP 136/80 03/03/24 11:34 Pulse Ox 97 03/03/24 11:34 Oxygen Delivery Method Room Air 03/03/24 11:34 BMI result Body Mass Index 30.6 Tobacco/Smoking Status: Tobacco use Status Tobacco use date assessed 03/03/24 03/03/24 11:44 Patient Tobacco Use Status Former Tobacco user 03/03/24 11:35 e-Cigarette/Vaping Use Never Used 03/03/24 11:35 Thrive Assessment: Date of Thrive Assessment Date Thrive assessed 10/07/23 03/03/24 11:35 Const Other: Alert oriented x3, no acute cardiorespiratory distress noted, ambulatory with assistance of a cane. Orientation/consciousness: patient oriented x3 [facility] Head: Yes normocephalic and Yes atraumatic Face and sinus: Yes face symmetric Mouth: Normal oral and palatal mucosa present, oropharynx normal and moist mucous membranes Eyes General: appearance normal, both eyes and all related structures Pupils: Equal, round and reactive pupils present EOM: EOMs intact bilaterally Neck Neck: Yes full ROM, Yes no lymphadenopathy and Yes supple Resp Auscultation: clear to auscultation bilaterally Cardio Other: S1-S2 present regular rate and rhythm GI Palpation (GI): Soft to palpation, nontender, no guarding and no masses Auscultation: normal bowel sounds Skin General skin exam: no rashes or lesions noted, no ecchymosis, no erythema, no petechiae and no purpura Neuro General: patient oriented x3, tone normal, moves all extremities, Normal light touch and pain sensation and no focal motor deficits Cranial nerves: Yes Equal, round and reactive pupils present Extrem General: Yes full ROM, Yes no joint enlargement, Yes no pedal edema and Yes no calf tenderness Psych Appearance: grossly normal and well kempt Mental Status: mental status grossly normal Speech and movement: Normal speech and movement present Affect: normal affect Attitude: cooperative Thought process: Normal thought process present Thought content: Normal thought content present Results Reviewed Results Reviewed: Laboratory Tests 03/03/24 08:01 Estimat Average Glucose 148 Hemoglobin A1c % 6.8 H Name: Amarilis Wu Age/Sex: 78/F : 1945 Unit#: [id number] Attend Dr: Kaylie Vela MD Re03/03/24 Status: REG REF [facility] Disch: SPEC : [id number] MICHAEL: 03/03/24 STATUS: COMP REQ : [id number] RECD: 03/03/[address]: Kaylie Vela MD COMP: 03/03/24 ENTERED: 03/03/[address]: ORDERED: Met Prof Fast, AST, ALT, Lipid Panel, Free T4, TSH Test Result Flag Reference Sodium 141 135-145 mmol/L Potassium 4.5 3.3-5.1 mmol/L CL 107 96-108 mmol/L CO2 25 22-29 mmol/L Gap 14 12-20 BUN 23 H 9-16 mg/dL Creat 0.79 0.5-1.4 mg/dL EGFR > 60 NOTE: For -[place] individuals, multiply the result by 1.210. Chronic Kidney Disease: Estimated GFR < 60 mL/min/1.73m2 Severe Kidney Disease: Estimated GFR < 15 mL/min/1.73m2 FBS 138 H 60-99 mg/dL A fasting glucose of 126 mg/dl or greater on more than one occasion is considered diagnostic of diabetes. CA 9.7 # 8.4-10.2 mg/dL AST (GOT) 16 5-31 U/L ALT (GPT) 16 0-31 U/L Triglyceride 189 H <150 mg/dL Desirable Triglyceride: less than 150 mg/dL Borderline High Triglyceride 150-199 mg/dL High Triglyceride: 200-499 mg/dL Very High Triglyceride: greater than or equal to 5OO mg/dL Cholesterol 169 <200 mg/dL Desirable Cholesterol: less than 200 mg/dL Borderline High Cholesterol: 200-239 mg/dL High Cholesterol: greater than 239 mg/dL LDL Calculated 91 <100 mg/dL Desirable LDL: less than 100 mg/dL Near Optimal/Above Optimal LDL: 110-129 mg/dL Borderline High LDL: 130-159 mg/dL High LDL: 160-189 mg/dL Very High LDL: greater than or equal to 190 mg/dL HDL 41 >40 mg/dL Desirable HDL: greater than 40 mg/dL Note: This HDL assay may give artificially low results in patients with liver disease. Free T4 0.98 0.71-1.85 ng/dL TSH 3rd Gen. 0.76 0.32-4.0 uIU/mL TSH 3rd Generation ([facility]) Assessment and Plan Assessment & Plan (1) Hyperlipidemia LDL goal <100: Code(s): E78.5 - Hyperlipidemia, unspecified Plan: Recent fasting lipids showed LDL at goal less than 100 mg/dL but triglycerides elevated. Continue with following low-cholesterol diet and getting regular exercise (2) Essential hypertension: Code(s): I10 - Essential (primary) hypertension Plan: Continued on lisinopril and amlodipine at same dose (3) Type 2 diabetes mellitus with diabetic polyneuropathy: Code(s): E11.42 - Type 2 diabetes mellitus with diabetic polyneuropathy Qualifiers: Diabetes mellitus senior care insulin use: without termite inspector use Qualified Code(s): E11.42 - Type 2 diabetes mellitus with diabetic polyneuropathy Plan: Latest hemoglobin A1c is at 6.8%. Continue with metformin 1000 mg 1 tablet twice a day, up-to-date with her diabetes retinopathy screening, sees Dr. Logan for her diabetes foot exam yearly (4) Postablative hypothyroidism: Code(s): E89.0 - Postprocedural hypothyroidism Plan: Latest thyroid levels are within normal limits, continue with current dose of Synthroid at 100 mcg daily Orders: Orders Alanine Aminotransferase 05/31/24 E11.42 - Type 2 diabetes mellitus with diabetic polyneuropathy, E78.5 - Hyperlipidemia, unspecified, E89.0 - Postprocedural hypothyroidism, I10 - Essential (primary) hypertension Aspartate Amino Transferase 05/31/24 E11.42 - Type 2 diabetes mellitus with diabetic polyneuropathy, E78.5 - Hyperlipidemia, unspecified, E89.0 - Postprocedural hypothyroidism, I10 - Essential (primary) hypertension Thyroid Stimulating Hormone 05/31/24 E11.42 - Type 2 diabetes mellitus with diabetic polyneuropathy, E78.5 - Hyperlipidemia, unspecified, E89.0 - Postprocedural hypothyroidism, I10 - Essential (primary) hypertension Free T4 (Free Thyroxine) 05/31/24 E11.42 - Type 2 diabetes mellitus with diabe tic polyneuropathy, E78.5 - Hyperlipidemia, unspecified, E89.0 - Postprocedural hypothyroidism, I10 - Essential (primary) hypertension Vitamin D 25-OH Total 05/31/24 E11.42 - Type 2 diabetes mellitus with diabetic polyneuropathy, E78.5 - Hyperlipidemia, unspecified, E89.0 - Postprocedural hypothyroidism, I10 - Essential (primary) hypertension Basic Metabolic Panel Fasting 05/31/24 E11.42 - Type 2 diabetes mellitus with diabetic polyneuropathy, E78.5 - Hyperlipidemia, unspecified, E89.0 - Postprocedural hypothyroidism, I10 - Essential (primary) hypertension Hemoglobin A1c 05/31/24 E11.42 - Type 2 diabetes mellitus with diabetic polyneuropathy, E78.5 - Hyperlipidemia, unspecified, E89.0 - Postprocedural hypothyroidism, I10 - Essential (primary) hypertension Coding Level of Care Code Est Pt Level 4 (35135) Complex EM visit Add On G2211 Diagnoses Hyperlipidemia LDL goal <100 E78.5 Essential hypertension I10 Type 2 diabetes mellitus with diabetic polyneuropathy, without long-term current use of insulin E11.42 Diabetes mellitus termite inspector insulin use: without senior care use Postablative hypothyroidism E89.0
== END 2024-03-03 12:09 | disposition home or self-care (01) ==
PROVIDERS: PCP Internal Medicine; Visit Provider Internal Medicine
DX: E78.5 Hyperlipidemia, unspecified (principal); I10 Essential (primary) hypertension; E11.42 Type 2 diabetes mellitus with diabetic polyneuropathy; E89.0 Postprocedural hypothyroidism
CPT/HCPCS: 99214; G2211

== ENCOUNTER 2024-06-09 06:59 | Outpatient (REF) | payer MEDICARE, SELFPAY ==
[2024-06-09 10:16] LABS: Estimated Average Glucose 163 mg/dL; Hemoglobin A1C 188.5614 umol/L; Hemoglobin A1c % 7.3 % (<6.0); Total Hemoglobin (HGBA1C) 3382.5932 umol/L
[2024-06-09 10:36] LABS: Alanine Aminotransferase 22 U/L (0-31); Anion Gap 11 (12-20); Aspartate Amino Transferase 16 U/L (5-31); Blood Urea Nitrogen 18 mg/dL (9-16); Calcium 9.4 mg/dL (8.4-10.2); Carbon Dioxide 27 mmol/L (22-29); Chloride 108 mmol/L (96-108); Estimated Glomerular Filt Rate > 60; Glucose Fasting 162 mg/dL (60-99); Potassium 3.5 mmol/L (3.3-5.1); Sodium 142 mmol/L (135-145)
[2024-06-09 10:40] LABS: Free T4 (Free Thyroxine) 1.06 ng/dL (0.71-1.85); Thyroid Stimulating Hormone 1.08 uIU/mL (0.32-4.0); Vitamin D 25-OH Total 47.3 ng/mL (>30)
== END 2024-06-09 07:00 | disposition home or self-care (01) ==
LOC: HO.HMGCLDS 06:59
PROVIDERS: PCP Internal Medicine; Visit Provider Internal Medicine
DX: E89.0 Postprocedural hypothyroidism (principal); E11.42 Type 2 diabetes mellitus with diabetic polyneuropathy; I10 Essential (primary) hypertension; E78.5 Hyperlipidemia, unspecified
CPT/HCPCS: 36415; 80048; 82306; 83036; 84439; 84443; 84450; 84460

== ENCOUNTER 2024-06-10 11:31 | Outpatient (AMB) | payer MEDICARE, SELFPAY ==
--- NOTE | 2024-06-10 11:47 | MHC.PC.OV ---
Vital Signs 06/10/24 11:48 Height 5 ft 3 in Weight 179 lb 6 oz BMI 31.8 BP 130/66 Blood Pressure Location Lt brachial Position Sitting Pulse 95 Pulse Source Pulse Oximeter Pulse Oximetry (%) 96 Oxygen Delivery Method Room Air Intake Visit Reasons: 3 month follow up Intake Note: Patient is here to follow up on DM, HTN, HLD, Hypothyroidism. Pt decline flu shot today. Window Treatment Installer Required: No Tapping Machine Operator: Not Required per policy Accompanied by: Self / Same As Patient Allergies adhesive tape Allergy (Unknown, Verified 06/10/24 11:59) Skin irritation, redness and itching molasses Allergy (Unknown, Verified 06/10/24 11:59) Rhinitis Seasonal Allergies Allergy (Unknown, Verified 06/10/24 11:59) Rhinitis umeclidinium [From INCRUSE ELLIPTA] Adverse Reaction (Intermediate, Verified 06/10/24 11:59) PALPITATIONS Maple Allergy (Unknown, Uncoded 06/10/24 11:59) Rhinitis inhaled corticosteroid Adverse Reaction (Unknown, Uncoded 06/10/24 11:59) palpitations Medication List - Last Reconciled 06/10/24 by Kaylie Vela MD acetaminophen 650 mg PO Q4H PRN albuterol sulfate 90 mcg/actuation 2 puffs PO Q6H PRN amlodipine 5 mg PO DAILY amlodipine 2.5 mg PO DAILY blood sugar diagnostic ([employer] Ultra Test strips) twice a day blood-glucose meter ([employer] Ultra2 Meter kit) twice a day ciclopirox 0.77% appl topical BID fluocinonide-emollient 0.05 % 1 appl topical BID 10 days fluticasone furoate-vilanterol 100-25 mcg/dose (Breo Ellipta) 1 ea inhalation DAILY ibuprofen (IBU) mg PO lancets ([employer] Delica Lancets) As directed twice a day lisinopril 40 mg PO DAILY metformin 1,000 mg (2 x 500 mg) PO BID Synthroid (levothyroxine) 100 mcg PO DAILY NS tiotropium bromide 1 cap inhalation DAILY Tobacco use date assessed: 06/10/24 Fall risk assessment: No Falls in past year Last assessed Fall Risk: 06/10/24 Dental Screening Dental Screen Date: 03/03/24 HPI 3 month follow up HPI Details 79 year-old lady here today for her follow-up. She has diabetes mellitus, currently on metformin a 1000 mg taken twice a day, with latest hemoglobin A1c at 7.3% up from 6.8% on last visit. Patient states that she has not really been compliant with her diet but takes her medicines as directed, no regular exercise. She takes Synthroid 100 mcg daily for her hypothyroidism with recent labs showing normal thyroid levels. She is on lisinopril 40 mg once a day and the amlodipine 2.5 mg once a day for hypertension with blood pressure stable controlled on present treatment.. She has hyperlipidemia , which she has been trying to control through diet and exercise, does not want to take statin, believes they are poison to the body . Complains of multiple skin lesions on face and extremities, some of which are changing in coloration. Would like a referral to see a financial services agent [facility] Medical History Fracture of radial head, left, closed Cervicalgia Arthralgia of hand, right Eczema of both hands Postablative hypothyroidism Benign hematuria Acquired ichthyosis Exercise-induced asthma Graves disease COPD (chronic obstructive pulmonary disease) Arthritis Type 2 diabetes mellitus with diabetic polyneuropathy Essential hypertension Hyperlipidemia LDL goal <100 Obesity (BMI 30.0-34.9) Surgical History History of eyelid surgery History of back surgery Hx of colonoscopy Hx of cholecystectomy Family History Father CVA (cerebral vascular accident) Diabetes Mother Renal disease Bile duct cancer Heart failure CVD (cardiovascular disease) Sister Mental health disorder Social History Household Members: Children Housing: House Alcohol intake: never Patient Tobacco Use Status: Former Tobacco user Years Smoked: 25 yrs e-Cigarette/Vaping Use: Never Used Second Hand Smoke Exposure: Yes service: No Current occupational status: retired Current occupation: right hand dominant Cognitive needs: No Hearing needs: No Vision needs: Yes Questionnaire Thrive Questionnaire Date Thrive assessed: 10/07/23 JAILYN-7 AMB Questionnaire JAILYN-7 Date JAILYN - 7 assessed: 10/07/23 Source: Developed by Drs. Josh L. LoganLibia mcmahan, Chi Hamilton and colleagues, with an educational archie from [employer]. Review of Systems Const Reports no additional complaints, Denies headache(s) and Denies weakness Eyes Reports no additional complaints ENT Reports no additional complaints, Denies dizziness and Denies headache(s) Card Denies chest pain, Denies chest pain with activity, Denies irregular heart rhythm, Denies lightheadedness, Denies palpitations and Denies dyspnea Resp Details: has seen Dr Lynne , Pulmonary at [facility] Reports no additional complaints and Denies dyspnea GI Reports no additional complaints Reports no additional complaints Musc Reports no additional complaints Skin/Breast Details: sees Dr sykes for diabetic foot exam Reports system reviewed and no additional complaints, except as documented Neuro Denies dizziness, Denies headache(s), Denies focal weakness and Denies weakness Psych Reports no additional complaints Endo Denies polyphagia, Denies polydipsia, Denies polyuria and Denies palpitations Goldy/Lymph Reports no additional complaints Aller/Immun Reports no additional complaints Physical exam (Primary Care) Vital Signs: Last Vital Signs Pulse 95 06/10/24 11:48 BP 130/66 06/10/24 11:48 Pulse Ox 96 06/10/24 11:48 Oxygen Delivery Method Room Air 06/10/24 11:48 BMI result Body Mass Index 31.8 Tobacco/Smoking Status: Tobacco use Status Tobacco use date assessed 06/10/24 06/10/24 11:54 Patient Tobacco Use Status Former Tobacco user 06/10/24 11:54 e-Cigarette/Vaping Use Never Used 06/10/24 11:54 Thrive Assessment: Date of Thrive Assessment Date Thrive assessed 10/07/23 06/10/24 11:54 Const Other: Alert oriented x3, no acute cardiorespiratory distress noted, ambulatory with assistance of a cane. Orientation/consciousness: patient oriented x3 HENMT Head: Yes normocephalic Face and sinus: Yes face symmetric Mouth: Normal oral and palatal mucosa present, oropharynx normal and moist mucous membranes Eyes General: appearance normal, both eyes and all related structures Pupils: Equal, round and reactive pupils present EOM: EOMs intact bilaterally Neck Neck: Yes full ROM, Yes no lymphadenopathy and Yes supple Resp Auscultation: clear to auscultation bilaterally Cardio Other: S1-S2 present regular rate and rhythm GI Palpation (GI): Soft to palpation, nontender, no guarding and no masses Auscultation: normal bowel sounds Skin Other: Diffusely scattered hyperpigmented macules on arm and face, of which have irregular margins. Neuro General: patient oriented x3, tone normal, moves all extremities, Normal light touch and pain sensation and no focal motor deficits Cranial nerves: Yes Equal, round and reactive pupils present Extrem General: Yes full ROM, Yes no joint enlargement, Yes no pedal edema and Yes no calf tenderness Results Reviewed Results Reviewed: Name: Amarilis Wu Age/Sex: 79/F : 1945 Unit#: [id number] Attend Dr: Kaylie Vela MD Re06/09/24 Status: DEP REF Location: [facility] Disch: SPEC : [id number] MICHAEL: 06/09/24 STATUS: COMP REQ : [id number] RECD: 06/09/[address]: Kaylie Vela MD COMP: 06/09/24 ENTERED: 06/09/[address]: ORDERED: Met Prof Fast, AST, ALT, Vitamin D 25-OH, Free T4, TSH Test Result Flag Reference Sodium 142 135-145 mmol/L Potassium 3.5 # 3.3-5.1 mmol/L CL 108 96-108 mmol/L CO2 27 22-29 mmol/L Gap 11 L 12-20 BUN 18 H 9-16 mg/dL Creat 0.78 0.5-1.4 mg/dL EGFR > 60 NOTE: For -[place] individuals, multiply the result by 1.210. Chronic Kidney Disease: Estimated GFR < 60 mL/min/1.73m2 Severe Kidney Disease: Estimated GFR < 15 mL/min/1.73m2 FBS 162 H 60-99 mg/dL A fasting glucose of 126 mg/dl or greater on more than one occasion is considered diagnostic of diabetes. CA 9.4 8.4-10.2 mg/dL AST (GOT) 16 5-31 U/L ALT (GPT) 22 0-31 U/L Vit D 25-OH Tot 47.3 >30 ng/mL Health Based Reference Values* < 20 ng/mL Deficient 20-30 ng/mL Insufficient > 30 ng/mL Sufficient *Cristhian RENDON. N Engl J Med. 2007;357:266-280 Care must be taken in interpreting Vitamin D results from different laboratories and methodologies. Published data demonstrated that results from patients undergoing hemodialysis may show a negative bias when tested with various automated 25-OH vitamin D assays when compared to LC-MS/MS. When testing samples from patients whose predominant form of Vitamin D is Vitamin D2, such as patients receiving Vitamin D2 supplementation, results that are subtherapeutic should be confirmed with another method such as LC-MS/MS. Free T4 1.06 0.71-1.85 ng/dL TSH 3rd Gen. 1.08 0.32-4.0 uIU/mL Laboratory Tests 10/31/23 03/03/24 06/09/24 10:41 08:01 07:01 Estimat Average Glucose 148 163 Hemoglobin A1c % 6.8 H 7.3 H Urine Creatinine 96.61 Urine Microalbumin 146.0 Microalb/Creat Ratio 151.1 H Laboratory Tests 03/03/24 08:01 Triglycerides 189 H Cholesterol 169 LDL Cholesterol, Calc 91 HDL Cholesterol 41 Coding Level of Care Code Est Pt Level 4 (46020) Complex EM visit Add On G2211 Diagnoses Change in multiple pigmented skin lesions L81.9 Hyperlipidemia LDL goal <100 E78.5 Essential hypertension I10 Type 2 diabetes mellitus with diabetic polyneuropathy, without long-term current use of insulin E11.42 Diabetes mellitus longterm insulin use: without extermination supervisor use Postablative hypothyroidism E89.0 Assessment & Plan Assessment & Plan (1) Change in multiple pigmented skin lesions: Code(s): L81.9 - Disorder of pigmentation, unspecified Plan: Dermatology consult ordered (2) Hyperlipidemia LDL goal <100: Code(s): E78.5 - Hyperlipidemia, unspecified Category: Medical Plan: Last lipids checked 03/14/2024 showed elevated triglycerides but rest of lipid levels are within normal limits. Continue with adherence to healthy eating habits, low-cholesterol diet and exercise (3) Essential hypertension: Code(s): I10 - Essential (primary) hypertension Category: Medical Plan: Blood pressure at goal of less than 130/80. Continue with current medication. Reinforced importance of following a low sodium diet, getting regular exercise, and lowering stress levels. (4) Type 2 diabetes mellitus with diabetic polyneuropathy: Code(s): E11.42 - Type 2 diabetes mellitus with diabetic polyneuropathy Category: Medical Qualifiers: Diabetes mellitus extermination supervisor insulin use: without extermination supervisor use Qualified Code(s): E11.42 - Type 2 diabetes mellitus with diabetic polyneuropathy Plan: Recent lab results reviewed with patient, with sugar and hemoglobin A1c not at goal . Patient does not want to start any other new medications, will continue on metformin a 1000 mg 1 tablet twice a day, stressed importance of following diabetic diet and getting regular exercise, at least 15-30 minutes daily of regular cardio exercise.. Counseled regarding importance of yearly diabetes retinopathy screening. Patient advised to inspect feet daily, for any signs of injury, callus or infection. Compliance with diet and regular exercise again stressed. Blood pressure goal is less than 130/80, goal LDL is less than 100 and goal hemoglobin A1c is less than 7% follow-up appointment made in-4--months, after fasting labs done. (5) Postablative hypothyroidism: Code(s): E89.0 - Postprocedural hypothyroidism Category: Medical Plan: Latest thyroid levels are within normal limits, continue with Synthroid 100 mcg taken once a day in a.m. an hour before breakfast Orders: Orders Hemoglobin A1c 4 Months E11.42 - Type 2 diabetes mellitus with diabetic polyneuropathy, E66.9 - Obesity, unspecified, E78.5 - Hyperlipidemia, unspecified, E89.0 - Postprocedural hypothyroidism, I10 - Essential (primary) hypertension Aspartate Amino Transferase 4 Months E11.42 - Type 2 diabetes mellitus with diabetic polyneuropathy, E66.9 - Obesity, unspecified, E78.5 - Hyperlipidemia, unspecified, E89.0 - Postprocedural hypothyroidism, I10 - Essential (primary) hypertension Basic Metabolic Panel Fasting 4 Months E11.42 - Type 2 diabetes mellitus with diabetic polyneuropathy, E66.9 - Obesity, unspecified, E78.5 - Hyperlipidemia, unspecified, E89.0 - Postprocedural hypothyroidism, I10 - Essential (primary) hypertension Lipid Panel 4 Months E11.42 - Type 2 diabetes mellitus with diabetic polyneuropathy, E66.9 - Obesity, unspecified, E78.5 - Hyperlipidemia, unspecified, E89.0 - Postprocedural hypothyroidism, I10 - Essential (primary) hypertension Thyroid Stimulating Hormone 4 Months E11.42 - Type 2 diabetes mellitus with diabetic polyneuropathy, E66.9 - Obesity, unspecified, E78.5 - Hyperlipidemia, unspecified, E89.0 - Postprocedural hypothyroidism, I10 - Essential (primary) hypertension Alanine Aminotransferase 4 Months E11.42 - Type 2 diabetes mellitus with diabetic polyneuropathy, E66.9 - Obesity, unspecified, E78.5 - Hyperlipidemia, unspecified, E89.0 - Postprocedural hypothyroidism, I10 - Essential (primary) hypertension Vitamin D 25-OH Total 4 Months E11.42 - Type 2 diabetes mellitus with diabetic polyneuropathy, E66.9 - Obesity, unspecified, E78.5 - Hyperlipidemia, unspecified, E89.0 - Postprocedural hypothyroidism, I10 - Essential (primary) hypertension Free T4 (Free Thyroxine) 4 Months E11.42 - Type 2 diabetes mellitus with diabetic polyneuropathy, E66.9 - Obesity, unspecified, E78.5 - Hyperlipidemia, unspecified, E89.0 - Postprocedural hypothyroidism, I10 - Essential (primary) hypertension Referrals Dermatology Referral L81.9 - Disorder of pigmentation, unspecified
[2024-06-10 11:48] VITALS: BP 130/66; PULSE 95; O2SAT 96; BMI 31.8
== END 2024-06-10 14:35 | disposition home or self-care (01) ==
PROVIDERS: PCP Internal Medicine; Visit Provider Internal Medicine
DX: L81.9 Disorder of pigmentation, unspecified (principal); E78.5 Hyperlipidemia, unspecified; I10 Essential (primary) hypertension; E11.42 Type 2 diabetes mellitus with diabetic polyneuropathy; E89.0 Postprocedural hypothyroidism

== ENCOUNTER → 2024-06-10 11:31 | Outpatient (BNVA) | payer MEDICARE, SELFPAY | PROVIDERS: PCP Internal Medicine; Visit Provider Internal Medicine | DX: L81.9 Disorder of pigmentation, unspecified (principal); E78.5 Hyperlipidemia, unspecified; I10 Essential (primary) hypertension; E11.42 Type 2 diabetes mellitus with diabetic polyneuropathy; E89.0 Postprocedural hypothyroidism | CPT/HCPCS: 99212 ==

== ENCOUNTER 2024-10-06 10:43 | Outpatient (REF) | payer MEDICARE, SELFPAY ==
--- OUTSIDE RECORDS SUMMARY | 2024-10-06 11:58 | XMS_ITS | Clinical Summary ---
Author Organization [facility] ity Address [address] [place] [address] Care Team Providers Care Liquefaction And Regasification Helper Name Role Phone Elmer Allen MD Primary Care Provider Unava ilable Social History Tobacco Use Types Packs/Day Years Used Date Smoking Tobacco: Never Assessed Comments Unknown Sex and Gender Information Value Date Recorded Sex Assigned at Not on file Legal Sex Female 9:50 PM EST Gender Identity Not on file Sexual Orientation Not on file Plan of Treatment Health Maintenance Due Date Last Done Comments DTaP,Tdap,and Td Vaccines (1 - Tdap) 1952 Pneumococcal Vaccine: 50+ Ye ars (1 of 1 - PCV) 1997 Zoster Vaccines (1 of 2) 1997 RSV Immunization Patients 60 + Years Old (1 - 1-dose 75+ series) 2022 COVID-19 Vaccine ( - 2023-2 5 season) 2024 Influenza Vaccine (#1) 2024 HIB Vaccines Aged Out No longer eligi ble based on patient's age to complete this topic HPV Vaccines Aged Out No longer eligi ble based on patient's age to complete this topic Hepatitis A Vaccines Aged Out No long er eligible based on patient's age to complete this topic Hepatitis B Vaccines Aged Out No long er eligible based on patient's age to complete this topic IPV Vaccines Aged Out No longer eligi ble based on patient's age to complete this topic MMR Vaccines Aged Out No longer eligi ble based on patient's age to complete this topic Meningococcal ACWY Vaccine Aged Out N o longer eligible based on patient's age to complete this topic Meningococcal B Vacine Aged Out No lo nger eligible based on patient's age to complete this topic RSV Immunization Patients Un major 20 months Aged Out No longer eligible b ased on patient's age to complete this topic Varicella Vaccines Aged Out No longer eligible based on patient's age to complete this topic Care Teams Liquefaction And Regasification Helper Relationship Specialty Start Date End Date Elmer Allen MD PCP - General Internal Medicine 03/12/18
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
[2024-10-06 13:38] LABS: Estimated Average Glucose 171 mg/dL; Hemoglobin A1C 210.3404 umol/L; Hemoglobin A1c % 7.6 % (<6.0); Total Hemoglobin (HGBA1C) 3544.1725 umol/L
[2024-10-06 15:17] LABS: Alanine Aminotransferase 25 U/L (0-31); Anion Gap 13 (12-20); Aspartate Amino Transferase 24 U/L (5-31); Blood Urea Nitrogen 22 mg/dL (9-16); Calcium 10.2 mg/dL (8.4-10.2); Carbon Dioxide 26 mmol/L (22-29); Chloride 106 mmol/L (96-108); Cholesterol 205 mg/dL (<200); Estimated Glomerular Filt Rate > 60; Glucose Fasting 185 mg/dL (60-99); HDL Cholesterol 57 mg/dL (>40); LDL Cholesterol Calculated 116 mg/dL (<100); Potassium 4.2 mmol/L (3.3-5.1); Sodium 141 mmol/L (135-145); Triglycerides 160 mg/dL (<150)
[2024-10-06 15:47] LABS: Free T4 (Free Thyroxine) 1.17 ng/dL (0.71-1.85); Vitamin D 25-OH Total 71.4 ng/mL (>30)
== END 2024-10-06 10:44 | disposition home or self-care (01) ==
LOC: HO.HMGCLDS 10:43
PROVIDERS: PCP Internal Medicine; Visit Provider Internal Medicine
DX: E89.0 Postprocedural hypothyroidism (principal); E11.42 Type 2 diabetes mellitus with diabetic polyneuropathy; I10 Essential (primary) hypertension; E78.5 Hyperlipidemia, unspecified; E66.9 Obesity, unspecified
CPT/HCPCS: 36415; 80048; 80061; 82306; 83036; 84439; 84443; 84450; 84460

== ENCOUNTER 2024-10-08 10:55 | Outpatient (AMB) | payer MEDICARE, SELFPAY ==
--- OUTSIDE RECORDS SUMMARY | 2024-10-08 11:40 | XMS_ITS | Clinical Summary ---
Author Organization [facility] ity Address [address] [place] [address] Care Team Providers Care Electrician Refinery Name Role Phone Elmer Allen MD Primary [...] Comments DTaP,Tdap,and Td Vaccines (1 - Tdap) 1966 Pneumococcal Vaccine: 50+ Ye ars (1 of [...] age to complete this topic Care Teams Electrician Refinery Relationship Specialty Start Date End Date Elmer Allen MD PCP - General Internal Medicine 03/12/18
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
--- OUTSIDE RECORDS SUMMARY | 2024-10-08 11:41 | XMS_ITS ---
[facility] Address [address] [place] [address] Care Team Providers Care Production Operations Manager Name Role Phone Dane MAYER, Kaylie Santacruz Primary Care Provider Un available Sabino Cedillo Unavailable [phone] Allergies Allergen (clinical drug ingredient) Drug/Non Drug Allergy documented on EMR Reaction Allergy Type Onset Date Status Lac-Hydrin Unknown Drug Allergy Active Lactic Acid E Unknown Drug Allergy Act demetrio REASON FOR VISIT At Risk Footcare, Ingrown nail(s) Medications Medication SIG (Take, Route, Frequency, Duration) Notes Start Date End Date Status Extra Depth Orthopedic Shoes (1 Pair) with Customized Heat Molded Multidensity Innersoles (3 Pair) as directed Dx: NIDDM/Polyneuropathy (E11.42), Hammertoe Foot Deformity (M20.41,M20.42), Preulcerative Skin Lesion(s) (L85.1 12/13/2023 Active Ciclopirox Olamine 0.77 % APPLY TOPICALL Y TO AFFECTED AREA TWO TIMES A DAY for 30 Active Naprosyn 250 MG 1 tablet Orally Twic e a day for as needed Not-Taking Serevent Diskus 50 MCG/DOSE 1 puff Inhalation Twice a day Not-Taking Flovent Diskus 50 MCG/BLIST 1 puff Inhalation Twice a day Not-Taking Spiriva HandiHaler 18 MCG 1 capsule Inha lation Once a day Active metFORMIN HCl 500 MG 1 tablet with meals Orally Twice a day for 30 day(s) Active zzzCompression Stockings 20-30mm Hg . . . for . Active Synthroid Active Lisinopril Active glipiZIDE Active Breo Ellipta Active Gabapentin Not-Takin g flovent HFA PRN Active ibuprofen Active amLODIPine Besylate 7.5mg Active Albuterol prn Active Acetaminophen Active Social History Tobacco Use: Social History Observation Description Date Details (start date - stop date) Former Smoker NA - NA Tobacco Use/Smoking Question Answer Notes Are you a: former smoker Additional Findings: Tobacco Non-User Current no n-smoker Tobacco use other than smoking: Question Answer Notes Are you an other tobacco user? No Vital Signs Height 5ft 2in in 06/16/2024 Weight 176 lbs 06/16/2024 BMI 32.19 kg/m2 06/16/2024 Blood pressure systolic 130 mm Hg 06/16/20 Blood pressure diastolic 60 mm Hg 024 Procedures Procedure Date Ordered Date Performed Result Body Sit e 42666-EIGJDJA NAIL, 6 OR MORE 06/16/2024 N/A 42363-Dkqeycra Plate 06/16/2024 N/A 42877-Rrgqsahs Plate Each Additional 06/16/2024 N/A 15528-UMJP SKIN LESIONS, OVER 4 06/16/2024 N/A Encounters Encounter Location Date Provider Diagnosis [facility] [address] [place] [address] 06/16/2024 Sabino Cedillo Type 2 diabetes mellitus with diabetic polyneuropathy E11.42 ; Tinea unguium B35.1 and Ingrown nail L60.0 Assessments Encounter Date Diagnosis (ICD Code) Assessment Notes Treatment Notes Treatment Clinical Notes Section Notes 06/16/2024 Type 2 diabetes mellitus with diabetic polyneuropathy (ICD-10 - E11.42) 06/16/2024 Tinea unguium (ICD-10 - B35.1) 06/16/2024 Ingrown nail (ICD-10 - L60.0) Plan Of Treatment Pending Test Test Name Order Date 00012-RXKSZNM NAIL, 6 OR MORE 06/16/2024 09475-Ilyejsmi Plate 06/16/2024 87401-Rhpymtci Plate Each Additional 07754-GKVI SKIN LESIONS, OVER 4 06/16/20 24 Next Appt Details Follow Up: prn, Reason: Provider Name:Sabino Cedillo , 12/25/2024 10:30:00 AM, [address] [place], [address], Procedure Notes * Category Sub-Category Detail Notes [...] and future surgical procedures to prevent recurrence (28239/32), DIABETES: Pt was advised as to the risk of delayed or nonhealing due to diabetes. Pt is to call the office with any questions, concerns, or complications, Pt STILL, DEFERS matricectomy Anesthesia was deferred - NEURO PELON: patient has medically documented neuropathic condition affecting sensation Location Lateral nail border, TA, Medial nail border, T5 Debride Nail 6-10 Nail debridement Performance o f this nail treatment by a nonprofessional would put this patients foot and overall health at risk. Therefore, nail debridement was performed extensively to reduce/remove overall nail length, girth, thickness, subungual debris, and necrotic tissue, by manual and/or electrical means through the use of a nail nipper and/or dremel-type rail grinder, to a more viable healthy nail plate or bed tissue 6-10. Silver nitrate used for any petechial bleeding as necessary. Definitive antifungal treatment options have been reviewed and discussed with the patient. The patient chooses, no pharmaceutical tx - 23161 Keratoma Treatment Parring or Cutting o f Benign Hyperkeratotic Lesion(s) (-57) More than 4 Lesions - The Benign hyperkeratotic lesions, as described above were pared, and/or cut utilizing a sterile 15 blade, tissue nippers, and/or dremel - 97237 Progress Notes * Amarilis WAY MDOB:[birth year] (79 yo F)Acc No.[id number]:06/16/2024 Progress Note Patient:?Amarilis Way Provider:?Sabino Cedillo DPM :1945???Age:79 Y???Sex:Female D ate:06/16/2024 Address:[address] [place] [address], [place], [id number] Pcp:Mily Stanley Subjective: * Chief Complaints: * ???At Risk FootcareIngrown n ail(s) * HPI: ???At Risk footcare:?Pt States Last PCP Visit:?Date?06/15/2024 * ROS:?General/Constitutional:?Nausea?denies.?Vomiting?denies.?Hunger Thirst?denies.?Loss appetite?denies.?Chills?denies.?Fatigue?denies.?Fever?denies.?Night Sweats?denies.?Unexplained weight loss?denies.?Unexplained [...] Left eye 11/07/2023 * Hospitalization/Major Diagno stic Procedure:?HALFWAY ER-spasm of the sternum mastoid process aystates [...] than smoking?Are you an other tobacco user??No ???Miscellaneous:?Caffeine: yes, frequency:, more than 4 cups per day Tea. ?Children: yes, 3. ?Exercise: yes, housework. ?Marital status: . ?Occupation: Retired, Dental Hygienist. * Medications:?TakingAcetamino phen Albuterol , Notes: prnamLODIPine Besylate 7.5mg Breo Ellipta flovent HFA , Notes: PRNglipiZIDE ibuprofen Lisinopril metFORMIN HCl 500 MG Tablet 1 tablet with meals Orally Twice a daySpiriva HandiHaler 18 MCG Capsule 1 capsule Inhalation Once a daySynthroid zzzCompression Stockings 20-30mm Hg 1 pair closed [...] Ellipta Taking flovent HFA , Notes: PRNTaking glipiZIDE Taking ibuprofen Taking Lisinopril Taking [...] Hammertoe Foot Deformity (M20.41,M20.42), Preulcerative Skin Lesion(s) (L85.1Not-Taking/PRNGabapentin Serevent Diskus 50 MCG/DOSE Aerosol Powder Breath Activated 1 puff Inhalation Twice a dayNaprosyn 250 MG Tablet 1 tablet Orally Twice a dayFlovent Diskus 50 MCG/BLIST Aerosol Powder Breath Activated 1 puff Inhalation Twice a dayMedication List reviewed and reconciled with the patientNot- Taking/PRN Gabapentin Not-Taking/PRN Serevent Diskus 50 MCG/DOSE Aerosol Powder Breath Activated 1 puff Inhalation Twice a dayNot-Taking/PRN Naprosyn 250 MG Tablet 1 tablet Orally Twice a dayNot-Taking/PRN Flovent Diskus 50 MCG/BLIST Aerosol Powder Breath Activated 1 puff Inhalation Twice a dayMedication List reviewed and reconciled with the patient * Allergies:?Lac-Hydrin: Aller gyLactic Acid E: Allergyyes[Allergies Verified] Objective: * Vitals:?Ht: 5ft 2in, Wt: 176 , BMI: 32.19, Shoe size: 9, BP: 130/60 mm Hg, BS: not taken, Ht-cm: 157.48 cm, Wt-k.83 kg. * ???Past Orders: ???Lab:HEMOGLOBIN A1C (GLYCO HEMOGLOBIN) (Order Date - 06/08/2024) (Collection Date - 06/08/2024) ? Value Reference Range ?TOTAL HEMOGLOBIN (HGBA1C) 7.0 * Examination: ???Neurological: ?SENSORY:?Neurological exam demonstrates, reduced [...] SUB MTH (s), 5, B/L , Heel, B/L.? Assessment: * Assessment: 1.?Type 2 diabetes mellitus with diabetic polyneuropathy - E11.42 (Primary)?2.?Tinea unguium - B35.1?3.?Ingrown nail - L60.0, Lateral nail border, TA, Medial nail border, T5? Plan: * Treatment: 2.?Ingrown nail?Procedure: 65690-Hvqrkfnq Plate ?Procedure: 88100-Qnryrfov Plate Each Additional * Procedures:?Debride Nail 6-10:?Nail debridement?Performance of this nail treatment by a nonprofessional would put this patients foot and overall health at risk. Therefore, nail debridement was performed extensively to reduce/remove overall nail length, girth, thickness, subungual debris, and necrotic tissue, by manual and/or electrical means through the use of a nail nipper and/or dremel-type rail grinder, to a more viable healthy nail plate or bed tissue 6-10. Silver nitrate used for any petechial bleeding as necessary. Definitive antifungal treatment options have been reviewed and discussed with the patient. The patient chooses, no pharmaceutical tx - 93999.?Keratoma Treatment:?Parring or Cutting of Benign Hyperkeratotic Lesion(s)?(-57) More than 4 Lesions - The Benign hyperkeratotic lesions, as described above were pared, and/or cut utilizing a sterile 15 blade, tissue nippers, and/or dremel - 81043.?Nail Avulsion:?Location?Lateral nail border,?TA,?Medial nail border,?T5.?Anesthesia?was deferred - [...] and future surgical procedures to prevent recurrence (06265/32), DIABETES: Pt was advised as to the risk of delayed or nonhealing due to diabetes. Pt is to call the office with any questions, concerns, or complications, Pt STILL, DEFERS matricectomy.? * Procedure Codes:?52740 DEBRI DE NAIL, 6 OR MORE, Modifiers: XS 98285 Avulsion Plate, Modifiers: XS , [id number] Avulsion Plate Each Additional, Modifiers: XS , [id number] TRIM SKIN LESIONS, OVER 4, Modifiers: XS * Follow Up:?prn * Images: * Sign off status: Completed true * Provider:?Sabino Cedillo DPM Date:?2023 Generated [...] MTH (s), 5, B/L , Heel, B/L Nails NAILS are: Elongated, overg rown, dystrophic, lytic, greater than 3mm thick, discolored and friable with crumbly malodorous subungual debris, T1, T2, T3, T4, T6, T7, T8, T9, remaining nails are elongated, overgrown, dystrophic
[2024-10-08 11:44] VITALS: BP 122/78; PULSE 87; RESP 16; TEMP 36.4; O2SAT 96; BMI 31.5
--- NOTE | 2024-10-08 11:44 | MHC.PC.OV ---
Vital Signs 10/08/24 11:44 Height 5 ft 3 in Weight 178 lb BMI 31.5 BP 122/78 Blood Pressure Location Lt brachial Position Sitting Respiration 16 Pulse 87 Pulse Source Pulse Oximeter Temp 97.5 F Temp Source Oral Pulse Oximetry (%) 96 Oxygen Delivery Method Room Air Intake Visit Reasons: Physical exam Allergies adhesive tape Allergy (Unknown, Verified 10/11/24 17:10) Skin irritation, redness and itching molasses Allergy (Unknown, Verified 10/11/24 17:10) Rhinitis Seasonal Allergies Allergy (Unknown, Verified 10/11/24 17:10) Rhinitis umeclidinium [From INCRUSE ELLIPTA] Adverse Reaction (Intermediate, Verified 10/11/24 17:10) PALPITATIONS Maple Allergy (Unknown, Uncoded 10/11/24 17:10) Rhinitis inhaled corticosteroid Adverse Reaction (Unknown, Uncoded 10/11/24 17:10) palpitations Medication List - Last Reconciled 10/08/24 by Kaylie Vela MD acetaminophen 650 mg PO Q4H PRN albuterol sulfate 90 mcg/actuation 2 puffs PO Q6H PRN amlodipine 2.5 mg PO DAILY amlodipine 5 mg PO DAILY blood sugar diagnostic (digitalbox Ultra Test strips) twice a day blood-glucose meter (digitalbox Ultra2 Meter kit) twice a day ciclopirox 0.77% appl topical BID fluocinonide-emollient 0.05 % 1 appl topical BID 10 days fluticasone furoate-vilanterol 100-25 mcg/dose (Breo Ellipta) 1 ea inhalation DAILY ibuprofen (IBU) mg PO lancets ([employer] Delica Lancets) As directed twice a day lisinopril 40 mg PO DAILY metformin 1,000 mg (2 x 500 mg) PO BID Synthroid (levothyroxine) 100 mcg PO DAILY NS tiotropium bromide 1 cap inhalation DAILY Tobacco use date assessed: 10/08/24 Fall risk assessment: No Falls in past year Last assessed Fall Risk: 10/08/24 Dental Screening Dental Screen Date: 10/08/24 Did you have a dental visit in the last 12 months?: Yes Did you have a dental problem in the last 6 months where you did not have access to dental care?: No Was dental information given to patient?: Patient has dentist HPI Physical exam HPI Details 79-year-old lady with history of diabetes mellitus, hypothyroidism, hypertension, hyperlipidemia and COPD, here today for her physical exam. She has been feeling well, compliant with taking medications and tries to follow recommended diet. However she admits that she does not do any exercise at all. Diabetes mellitus not well controlled with latest hemoglobin A1c at 7.6%. She is overdue for her screening mammogram, last done in 2022 and does not want to get any further bone density scans. Recent fasting labs also showed normal electrolytes and renal function, lipids showed elevated LDL cholesterol at 116 mg/dL but patient does not want to take any statins. Thyroid levels are within normal limits [facility] Medical History Fracture of radial head, left, closed Cervicalgia Arthralgia of hand, right Eczema of both hands Postablative hypothyroidism Benign hematuria Acquired ichthyosis Exercise-induced asthma Graves disease COPD (chronic obstructive pulmonary disease) Arthritis Type 2 diabetes mellitus with diabetic polyneuropathy Essential hypertension Hyperlipidemia LDL goal <100 Obesity (BMI 30.0-34.9) Surgical History History of eyelid surgery History of back surgery Hx of colonoscopy Hx of cholecystectomy Family History Father CVA (cerebral vascular accident) Diabetes Mother Renal disease Bile duct cancer Heart failure CVD (cardiovascular disease) Sister Mental health disorder Social History Household Members: Children Housing: House Alcohol intake: never Patient Tobacco Use Status: Former Tobacco user Years Smoked: 25 yrs e-Cigarette/Vaping Use: Never Used Second Hand Smoke Exposure: Yes service: No Current occupational status: retired Current occupation: right hand dominant Cognitive needs: No Hearing needs: No Vision needs: Yes Questionnaire PHQ-9 Over the last 2 weeks, how often have you been bothered by any of the following problems? 1. Little interest or pleasure in doing things: not at all 2. Feeling down, depressed, or hopeless: not at all 3. Trouble falling or staying asleep, or sleeping too much: not at all 4. Feeling tired or having little energy: not at all 5. Poor appetite or overeating: not at all 6. Feeling bad about yourself - or that you are a failure or have let yourself or your family down: not at all 7. Trouble concentrating on things, such as reading the newspaper or watching television: not at all 8. Moving or speaking so slowly that other people could have noticed. Or the opposite - being so fidgety or restless that you have been moving around a lot more than usual: not at all 9. Thoughts that you would be better off or of hurting yourself in some way: not at all Total score: 0 Depression Screening Interpretation: Negative Depression Screening Done: Yes 06522 - PHQ-9 Billing: Yes Source: Developed by Drs. Josh Ford, Libia Shaikh, Chi Hamilton and colleagues, with an educational archie from [employer]. Thrive Questionnaire Date Thrive assessed: 10/08/24 I am a: Patient What is your living situation today?: I have a steady place to live Within the past 12 months, did the food you bought not last and you didn't have the money to get more?: Never true Within the past 12 months, did you worry whether your food would run out before you got money to buy more?: Never true Do you have trouble paying for medicines?: No Do you have trouble getting transportation to medical appointments?: No Do you have trouble paying your heating and electricity bill?: No Do you have trouble taking care of your child, family member or friend?: No Do you have trouble with day-to-day activities such as bathing, preparing meals, shopping, managing finances, etc.?: No Are you currently unemployed and looking for a job?: No Are you interested in more education?: No THRIVE Score: 0 AUDIT C Alcohol Use Questionnaire (AUDIT-C) 1. How often do you have a drink containing alcohol?: Never Total Score: 0 JAILYN-7 AMB Questionnaire JAILYN-7 Date JAILYN - 7 assessed: 10/08/24 Feeling nervous, anxious, or on edge: 0 = Not at all Not being able to stop or control worryin = Not at all Worrying too much about different things: 0 = Not at all Trouble relaxin = Not at all Being so restless that it is hard to sit still: 0 = Not at all Becoming easily annoyed or irritable: 0 = Not at all Feeling afraid as if something awful might happen: 0 = Not at all Total JAILYN-7 score (0-4 normal; 5-9 mild; 10-14 moderate; 15-21 severe): 0 Source: Developed by Drs. Josh Ford, Libia Shaikh, Chi Hamilton and colleagues, with an educational archie from [employer]. JAILYN-7 Assessment Billing JAILYN-7 Assessment Tool: JAILYN-7 Assessment 82285 Review of Systems Const Reports no additional complaints, Denies headache(s) and Denies weakness Eyes Reports no additional complaints ENT Reports no additional complaints, Denies dizziness and Denies headache(s) Card Denies chest pain, Denies chest pain with activity, Denies irregular heart rhythm, Denies lightheadedness, Denies palpitations and Denies dyspnea Resp Details: has seen Dr Lynne , Pulmonary at [facility] Reports no additional complaints and Denies dyspnea GI Reports no additional complaints Reports no additional complaints Musc Reports no additional complaints Skin/Breast Details: sees Dr sykes for diabetic foot exam Reports system reviewed and no additional complaints, except as documented Neuro Denies dizziness, Denies headache(s), Denies focal weakness and Denies weakness Psych Reports no additional complaints Endo Denies polyphagia, Denies polydipsia, Denies polyuria and Denies palpitations Goldy/Lymph Reports no additional complaints Aller/Immun Reports no additional complaints Physical exam (Primary Care) Vital Signs: Last Vital Signs Temp 97.5 F 10/08/24 11:44 Pulse 87 10/08/24 11:44 Resp 16 10/08/24 11:44 BP 122/78 10/08/24 11:44 Pulse Ox 96 10/08/24 11:44 Oxygen Delivery Method Room Air 10/08/24 11:44 BMI result Body Mass Index 31.5 Tobacco/Smoking Status: Tobacco use Status Tobacco use date assessed 10/08/24 10/08/24 11:50 Patient Tobacco Use Status Former Tobacco user 10/08/24 11:45 e-Cigarette/Vaping Use Never Used 10/08/24 11:45 PHQ-9: PHQ-9 Score PHQ-9: Total score 0 10/08/24 12:03 Depression Screening Interpretation: Negative Thrive Assessment: Date of Thrive Assessment Date Thrive assessed 10/08/24 10/08/24 11:51 Const Other: Alert oriented x3, no acute cardiorespiratory distress noted, ambulatory with assistance of a cane. Orientation/consciousness: patient oriented x3 [facility] Head: Yes normocephalic Face and sinus: Yes face symmetric Mouth: Normal oral and palatal mucosa present, oropharynx normal and moist mucous membranes Eyes General: appearance normal, both eyes and all related structures Pupils: Equal, round and reactive pupils present EOM: EOMs intact bilaterally Neck Neck: Yes full ROM, Yes no lymphadenopathy and Yes supple Resp Auscultation: clear to auscultation bilaterally Cardio Other: S1-S2 present regular rate and rhythm GI Palpation (GI): Soft to palpation, nontender, no guarding and no masses Auscultation: normal bowel sounds Skin Other: Diffusely scattered hyperpigmented macules on arm and face, of which have irregular margins. Neuro General: patient oriented x3, tone normal, moves all extremities, Normal light touch and pain sensation and no focal motor deficits Cranial nerves: Yes Equal, round and reactive pupils present Extrem General: Yes full ROM, Yes no joint enlargement, Yes no pedal edema and Yes no calf tenderness Psych Appearance: grossly normal Mental Status: mental status grossly normal Speech and movement: Normal speech and movement present Affect: normal affect Results Reviewed Results Reviewed: michelle: Amarilis Wu Age/Sex: 79/F : 1945 Unit#: [id number] Attend Dr: Kaylie Vela MD Re10/06/24 Status: DEP REF Location: [facility] Disch: SPEC : [id number] MICHAEL: 10/06/24 STATUS: COMP REQ : [id number] RECD: 10/06/[address]: Kaylie Vela MD COMP: 10/06/24 ENTERED: 10/06/[address]: ORDERED: Met Prof Fast, AST, ALT, Lipid Panel, Vitamin D 25-OH, Free T4, TSH Test Result Flag Reference Sodium 141 135-145 mmol/L Potassium 4.2 3.3-5.1 mmol/L CL 106 96-108 mmol/L CO2 26 22-29 mmol/L Gap 13 12-20 BUN 22 H 9-16 mg/dL Creat 0.80 0.5-1.4 mg/dL eGFR > 60 Chronic Kidney Disease: Estimated GFR < 60 mL/min/1.73m2 Severe Kidney Disease: Estimated GFR < 15 mL/min/1.73m2 FBS 185 H 60-99 mg/dL A fasting glucose of 126 mg/dl or greater on more than one occasion is considered diagnostic of diabetes. CA 10.2 # 8.4-10.2 mg/dL AST (GOT) 24 5-31 U/L ALT (GPT) 25 0-31 U/L Triglyceride 160 H <150 mg/dL Desirable Triglyceride: less than 150 mg/dL Borderline High Triglyceride 150-199 mg/dL High Triglyceride: 200-499 mg/dL Very High Triglyceride: greater than or equal to 5OO mg/dL Cholesterol 205 H <200 mg/dL Desirable Cholesterol: less than 200 mg/dL Borderline High Cholesterol: 200-239 mg/dL High Cholesterol: greater than 239 mg/dL LDL Calculated 116 H <100 mg/dL Desirable LDL: less than 100 mg/dL Near Optimal/Above Optimal LDL: 110-129 mg/dL Borderline High LDL: 130-159 mg/dL High LDL: 160-189 mg/dL Very High LDL: greater than or equal to 190 mg/dL HDL 57 >40 mg/dL Desirable HDL: greater than 40 mg/dL Note: This HDL assay may give artificially low results in patients with liver disease. Vit D 25-OH Tot 71.4 >30 ng/mL Health Based Reference Values* < 20 ng/mL Deficient 20-30 ng/mL Insufficient > 30 ng/mL Sufficient *Cristhian RENDON. N Engl J Med. 2007;357:266-280 Care must be taken in interpreting Vitamin D results from different laboratories and methodologies. Published data demonstrated that results from patients undergoing hemodialysis may show a negative bias when tested with various automated 25-OH vitamin D assays when compared to LC-MS/MS. When testing samples from patients whose predominant form of Vitamin D is Vitamin D2, such as patients receiving Vitamin D2 supplementation, results that are subtherapeutic should be confirmed with another method such as LC-MS/MS. Free T4 1.17 0.71-1.85 ng/dL TSH 3rd Gen. 1.20 0.32-4.0 uIU/mL TSH 3rd Generation ([facility]) Laboratory Tests 10/06/24 10:44 Estimat Average Glucose 171 Hemoglobin A1c % 7.6 H Laboratory Tests 10/31/23 10:41 Urine Creatinine 96.61 Urine Microalbumin 146.0 Microalb/Creat Ratio 151.1 H Coding Level of Care Code Est Pt Prev Care >65y(57408) Diagnoses Annual visit for general adult medical examination with abnormal findings Z00.01 Type 2 diabetes mellitus with diabetic polyneuropathy, without long-term current use of insulin E11.42 Diabetes mellitus bindery assistant insulin use: without fpc use Essential hypertension I10 Hyperlipidemia LDL goal <100 E78.5 Postablative hypothyroidism E89.0 Additional Codes PHQ-9 - 85293 - PHQ-9 Billing: Yes ([id number]) JAILYN-7 Assessment Billing - JAILYN-7 Assessment Tool: JAILYN-7 Assessment 52863 ([id number]) Assessment & Plan Assessment & Plan (1) Annual visit for general adult medical examination with abnormal findings: Code(s): Z00.01 - Encounter for general adult medical examination with abnormal findings Plan: Results of recent fasting lab results reviewed with patient.. Recommended dental visit every 6 months and yearly eye exams. Take adequate calcium in diet and vitamin-D 3 at 2000 IU per cap once a day, in addition to weight-bearing exercises to help maintain good muscle tone and weight control. Patient however refusing to do another bone density scan. Instructed to do self-breast exam, and recommended to get yearly mammogram, overdue. Referred to GI Clinic for her repeat colonoscopy screening, with history of polyps removed in the past (2) Type 2 diabetes mellitus with diabetic polyneuropathy: Code(s): E11.42 - Type 2 diabetes mellitus with diabetic polyneuropathy Category: Medical Qualifiers: Diabetes mellitus bindery assistant insulin use: without bindery assistant use Qualified Code(s): E11.42 - Type 2 diabetes mellitus with diabetic polyneuropathy Plan: Hemoglobin A1c at 7.6%. Patient does not want to make any adjustments in her current medication dose, will continue on metformin a 1000 mg twice a day, declined to start any other medication, stressed importance of adhering to healthy eating habits and getting regular exercise. Will repeat levels again in 3 months (3) Essential hypertension: Code(s): I10 - Essential (primary) hypertension Category: Medical Plan: Blood pressure at goal of less than 130/80. Continue lisinopril, amlodipine at same dose Reinforced importance of following a low sodium diet, getting regular exercise, and lowering stress levels. (4) Hyperlipidemia LDL goal <100: Code(s): E78.5 - Hyperlipidemia, unspecified Category: Medical Plan: Reviewed with patient care current fasting lipid levels which showed an LDL cholesterol not at goal of less than 100 mg/dL. Adamantly refusing to take any statin, stressed importance of following a low-cholesterol diet and getting regular exercise. Will recheck levels again in 3 months (5) Postablative hypothyroidism: Code(s): E89.0 - Postprocedural hypothyroidism Category: Medical Plan: Thyroid levels are within normal limits, continue current dose of Synthroid at 100 mcg daily in a.m. Orders: Orders MM tomosynthesis screening BI 10/08/24 Z12.31 - Encounter for screening mammogram for malignant neoplasm of breast Alanine Aminotransferase 12/24/24 E11.42 - Type 2 diabetes mellitus with diabetic polyneuropathy, E78.5 - Hyperlipidemia, unspecified, E89.0 - Postprocedural hypothyroidism, I10 - Essential (primary) hypertension AMB Hemoglobin A1c 12/24/24 E11.42 - Type 2 diabetes mellitus with diabetic polyneuropathy, E78.5 - Hyperlipidemia, unspecified, E89.0 - Postprocedural hypothyroidism, I10 - Essential (primary) hypertension Aspartate Amino Transferase 12/24/24 E11.42 - Type 2 diabetes mellitus with diabetic polyneuropathy, E78.5 - Hyperlipidemia, unspecified, E89.0 - Postprocedural hypothyroidism, I10 - Essential (primary) hypertension Hemoglobin A1c 12/24/24 E11.42 - Type 2 diabetes mellitus with diabetic polyneuropathy, E78.5 - Hyperlipidemia, unspecified, E89.0 - Postprocedural hypothyroidism, I10 - Essential (primary) hypertension Lipid Panel 12/24/24 E11.42 - Type 2 diabetes mellitus with diabetic polyneuropathy, E78.5 - Hyperlipidemia, unspecified, E89.0 - Postprocedural hypothyroidism, I10 - Essential (primary) hypertension Thyroid Stimulating Hormone 12/24/24 E11.42 - Type 2 diabetes mellitus with diabetic polyneuropathy, E78.5 - Hyperlipidemia, unspecified, E89.0 - Postprocedural hypothyroidism, I10 - Essential (primary) hypertension Free T4 (Free Thyroxine) 12/24/24 E11.42 - Type 2 diabetes mellitus with diabetic polyneuropathy, E78.5 - Hyperlipidemia, unspecified, E89.0 - Postprocedural hypothyroidism, I10 - Essential (primary) hypertension Referrals Gastroenterology Referral Z86.0101 - Personal history of adenomatous and serrated colon polyps
== END 2024-10-08 12:48 | disposition home or self-care (01) ==
PROVIDERS: PCP Internal Medicine; Visit Provider Internal Medicine
DX: Z00.01 Encounter for general adult medical examination with abnormal findings (principal); E11.42 Type 2 diabetes mellitus with diabetic polyneuropathy; I10 Essential (primary) hypertension; E78.5 Hyperlipidemia, unspecified; E89.0 Postprocedural hypothyroidism

== ENCOUNTER → 2024-10-08 10:55 | Outpatient (BNVA) | payer MEDICARE, SELFPAY | PROVIDERS: PCP Internal Medicine; Visit Provider Internal Medicine | DX: Z00.01 Encounter for general adult medical examination with abnormal findings (principal); E11.42 Type 2 diabetes mellitus with diabetic polyneuropathy; E78.5 Hyperlipidemia, unspecified; E89.0 Postprocedural hypothyroidism; I10 Essential (primary) hypertension | CPT/HCPCS: 96127; 99397 ==

== ENCOUNTER 2024-10-15 11:46 | Outpatient (REF) | payer MEDICARE, SELFPAY ==
--- OUTSIDE RECORDS SUMMARY | 2024-10-15 13:00 | XMS_ITS | Clinical Summary ---
Author Organization [facility] ity Address [address] [place] [address] Care Team Providers Care Rocket Test Fire Worker Name Role Phone Elmer Allen MD Primary [...] age to complete this topic Care Teams Rocket Test Fire Worker Relationship Specialty Start Date End Date Elmer Allen MD PCP - General Internal Medicine 03/12/18
--- OUTSIDE RECORDS SUMMARY | 2024-10-15 13:01 | XMS_ITS ---
Author Organization [facility] Address [address] [place] [address] Care Team Providers Care Weaver Hand Loom Name Role Phone Dane MAYER, Kaylie Santacruz Primary Care Provider Un available Sabino Cedillo Unavailable [phone] Allergies Allergen (clinical drug ingredient) Drug/Non Drug [...] Ordered Date Performed Result Body Sit e 41400-IAUSCER NAIL, 6 OR MORE 06/16/2024 N/A 66170-Cbtbpvqh Plate 06/16/2024 N/A 07820-Ynsvlmkj Plate Each Additional 06/16/2024 N/A 98470-OTDJ SKIN LESIONS, OVER 4 06/16/2024 N/A Encounters Encounter Location Date Provider Diagnosis [facility] [address] [place] [address] 06/16/2024 Sabino Cedillo Type 2 diabetes mellitus [...] Treatment Pending Test Test Name Order Date 75176-NHQAGBZ NAIL, 6 OR MORE 06/16/2024 24642-Kdmtfsfy Plate 06/16/2024 75914-Litcxcok Plate Each Additional 72561-DUPZ SKIN LESIONS, OVER 4 06/16/20 24 Next Appt Details Follow Up: prn, Reason: Provider Name:Sabino Cedillo , 12/25/2024 10:30:00 AM, [address] [place], [address], Procedure Notes * Category Sub-Category Detail Notes [...] and future surgical procedures to prevent recurrence (08910/32), DIABETES: Pt was advised as to the [...] use of a nail nipper and/or dremel-type tool grinder, to a more viable healthy nail plate or bed tissue 6-10. Silver nitrate used for any petechial bleeding as necessary. Definitive antifungal treatment options have been reviewed and discussed with the patient. The patient chooses, no pharmaceutical tx - 10111 Keratoma Treatment Parring or Cutting o f Benign Hyperkeratotic Lesion(s) (-57) More than 4 Lesions - The Benign hyperkeratotic lesions, as described above were pared, and/or cut utilizing a sterile 15 blade, tissue nippers, and/or dremel - 65082 Progress Notes * Amarilis WAY MDOB:[birth year] (79 yo F)Acc No.[id number]:06/16/2024 Progress Note Patient:?Amarilis Way Provider:?Sabino Cedillo DPM :1945???Age:79 Y???Sex:Female D ate:06/16/2024 Address:[address] [place] [address], [place], [id number] Pcp:Mily Stanley Subjective: * Chief Complaints: * [...] Left eye 11/07/2023 * Hospitalization/Major Diagno stic Procedure:?[facility] ER-spasm of the sternum mastoid process aystates [...] border, T5? Plan: * Treatment: 2.?Ingrown nail?Procedure: 53632-Ygbhprre Plate ?Procedure: 84210-Ebksyitl Plate Each Additional * Procedures:?Debride Nail 6-10:?Nail debridement?Performance of this nail treatment by a nonprofessional would put this patients foot and overall health at risk. Therefore, nail debridement was performed extensively to reduce/remove overall nail length, girth, thickness, subungual debris, and necrotic tissue, by manual and/or electrical means through the use of a nail nipper and/or dremel-type tool grinder, to a more viable healthy nail plate or bed tissue 6-10. Silver nitrate used for any petechial bleeding as necessary. Definitive antifungal treatment options have been reviewed and discussed with the patient. The patient chooses, no pharmaceutical tx - 80013.?Keratoma Treatment:?Parring or Cutting of Benign Hyperkeratotic Lesion(s)?(-57) More than 4 Lesions - The Benign hyperkeratotic lesions, as described above were pared, and/or cut utilizing a sterile 15 blade, tissue nippers, and/or dremel - 04512.?Nail Avulsion:?Location?Lateral nail border,?TA,?Medial nail border,?T5.?Anesthesia?was deferred - [...] and future surgical procedures to prevent recurrence (74167/32), DIABETES: Pt was advised as to the risk of delayed or nonhealing due to diabetes. Pt is to call the office with any questions, concerns, or complications, Pt STILL, DEFERS matricectomy.? * Procedure Codes:?15215 DEBRI DE NAIL, 6 OR MORE, Modifiers: XS 66731 Avulsion Plate, Modifiers: XS , [id number] Avulsion Plate Each Additional, Modifiers: XS , [id number] TRIM SKIN LESIONS, OVER 4, Modifiers: XS * Follow Up:?prn * Images: * Sign off status: Completed true * Provider:?Sabino Cedillo DPM Date:?2023 Generated for Kenny gillette/Florencio/Aleks on:?10/15/2024 01:00 PM EST History and Physical Notes * HPI [...]
--- OUTSIDE RECORDS SUMMARY | 2024-10-15 13:01 | XMS_ITS | Patient Health Record ---
Author Organization [facility] Address [address] [place] [address] Care Team Providers Care Bench Press Operator Name Role Phone Dnae MAYER, Kaylie Snatacruz Primary Care Provider Un available Sabino Cedillo Unavailable [phone] Allergies Allergen (clinical drug ingredient) Drug/Non Drug [...] Last Name Dane Referring Provider Speciality Internal [facility] Referred Provider Sabino Cedillo Referred Address [address] [place], [place],[address],[place] Referred Provider Specialty Podiatry Referral Priority Routine [...] Last Name Dane Referring Provider Speciality Internal [facility] Referred Provider Sabino Cedillo Referred Address [address] [facility],[place],[address],[place] Referred Provider Specialty Podiatry Referral Priority Routine [...] Problem Acquired hammer toe of right foot (7161967564554617 ) Other hammer toe(s) (acquired), right foot (M20.41) Active confirmed Response to treatment, Improvemen t Problem Acquired hammer toe of left foot ([id number] ) Other hammer toe(s) (acquired), left foot (M20.42) Active confirmed Response to treatment, Improvemen t Problem Polyneuropathy due to type 2 diabetes mellitus (410624149) Type 2 diabetes mellitus with diabetic polyneuropathy (E11.42) Active confirmed Vital Signs Blood pressure diastolic 70 mm Hg 09/18/2024 Height 5ft 2in in 09/18/2024 Blood pressure systolic 130 mm Hg 09/18/2024 Weight 176 lbs 09/18/2024 BMI 32.19 kg/m2 09/18/2024 Procedures Procedure Date Ordered Date Performed Result Body Sit e 71031-KZLLEOL NAIL, 6 OR MORE 12/13/2023 N/A 64233-Acvngjrj Plate 12/13/2023 N/A 76433-Cqppshqn Plate Each Additional 12/13/2023 N/A 40622-LKNU SKIN LESIONS, OVER 4 12/13/2023 N/A 29715-EFQOMOL NAIL, 6 OR MORE 03/13/2024 N/A 22071-Wvmewfze Plate 03/13/2024 N/A 13211-Ejyjfhpz Plate Each Additional 03/13/2024 N/A 33636-MOCO SKIN LESIONS, OVER 4 03/13/2024 N/A 89875-CBASIIB NAIL, 6 OR MORE 06/16/2024 N/A 35919-Dvgygyld Plate 06/16/2024 N/A 56974-Xnraognr Plate Each Additional 06/16/2024 N/A 44144-ZMTE SKIN LESIONS, OVER 4 06/16/2024 N/A 62351-OPJXCYT NAIL, 6 OR MORE 09/18/2024 N/A 10397-Xlkpzcdr Plate 09/18/2024 N/A 27598-Qhhlyjpb Plate Each Additional 09/18/2024 N/A 59502-AEKS SKIN LESIONS, OVER 4 09/18/2024 N/A Encounters Encounter Location Date Provider Diagnosis [address] [address] 12/13/2023 Sabino Valienteier Type 2 diabetes mellitus with diabetic polyneuropathy E11.42 ; Tinea unguium B35.1 ; Ingrown nail L60.0 ; Other hammer toe(s) (acquired), right foot M20.41 and Other hammer toe(s) (acquired), left foot M20.[address] [address] 03/13/2024 Sabino Cedillo Type 2 diabetes mellitus with diabetic polyneuropathy E11.42 ; Tinea unguium B35.1 ; Ingrown nail L60.0 ; Other hammer toe(s) (acquired), right foot M20.41 and Other hammer toe(s) (acquired), left foot M20.[address] [address] 06/16/2024 Sabinoellen Cedillo Type 2 diabetes mellitus with diabetic polyneuropathy E11.42 ; Tinea unguium B35.1 and Ingrown nail L60.[address] [address] 09/18/2024 Sabino Nguyen Type 2 diabetes mellitus [...] Test Name Order Date Hemoglobin A1c 10/07/2015 32227-ANTKXHD NAIL, 6 OR MORE 01/20/2016 96216-FGIOGFO NAIL, 6 OR MORE 04/17/2016 58909-QQSSMDW NAIL, 6 OR MORE 07/10/2016 03296-TYAHTTF NAIL, 6 OR MORE 10/12/2016 30809-HUVZFIP NAIL, 6 OR MORE 01/11/2017 30688-STJPDBV NAIL, 6 OR MORE 04/12/2017 34502-KHBFAZB NAIL, 6 OR MORE 07/26/2017 45900-IFTRQTC NAIL, 6 OR MORE 10/25/2017 73501-BKLUFXE NAIL, 6 OR MORE 01/24/2018 20763-PMWJQSJ NAIL, 6 OR MORE 05/09/2018 94477-OEZDWZZ NAIL, 6 OR MORE 08/08/2018 44549-EADUZJY NAIL, 6 OR MORE 11/07/2018 54411-PJROSIE NAIL, 6 OR MORE 09/11/2019 28462-GAYPTPJ NAIL, 6 OR MORE 04/15/2020 30785-GKRZVMV NAIL, 6 OR MORE 07/15/2020 26737-FUWTTJJ NAIL, 6 OR MORE 06/22/2011 87583-BKNKBMU NAIL, 6 OR MORE 10/12/2011 84591-BEUHULA NAIL, 6 OR MORE 05/09/2012 76485-IUZETNC NAIL, 6 OR MORE 07/25/2012 54183-VKCHYGP NAIL, 6 OR MORE 10/10/2012 67982-DPWLURE NAIL, 6 OR MORE 01/09/2013 23206-NSJMVJP NAIL, 6 OR MORE 05/01/2013 28897-WNTJEBK NAIL, 6 OR MORE 08/07/2013 87398-ZGFIEOK NAIL, 6 OR MORE 11/20/2013 91562-JVIXKTU NAIL, 6 OR MORE 04/02/2014 65766-HWGFGRP NAIL, 6 OR MORE 07/09/2014 99718-GYTOQNC NAIL, 6 OR MORE 10/22/2014 89064-NNAZUWP NAIL, 6 OR MORE 01/28/2015 95892-WUCLZAB NAIL, 6 OR MORE 05/20/2015 20934-ROAARLU NAIL, 6 OR MORE 10/07/2015 62428-EJGDXKK NAIL, 6 OR MORE 10/14/2020 20699-KHKOLYE NAIL, 6 OR MORE 01/13/2021 72509-OOBPVAD NAIL, 6 OR MORE 04/14/2021 90111-RXFTYXM NAIL, 6 OR MORE 07/14/2021 36094-WOBCJLY NAIL, 6 OR MORE 11/07/2021 76798-VKWPTYQ NAIL, 6 OR MORE 02/16/2022 71986-WSJCGJW NAIL, 6 OR MORE 05/18/2022 14302-SUVURFH NAIL, 6 OR MORE 08/17/2022 54549-OPUNOMB NAIL, 6 OR MORE 11/16/2022 68427-WNKDSQG NAIL, 6 OR MORE 02/15/2023 59133-NKIQKEA NAIL, 6 OR MORE 12/13/2023 90678-RJXWNQC NAIL, 6 OR MORE 03/13/2024 44074-AYITKBD NAIL, 6 OR MORE 06/16/2024 75313-IMOUSCV NAIL, 6 OR MORE 09/18/2024 82878-XZNVZPZ NAIL, 6 OR MORE 11/20/2019 83551-Duff Destruction, 1-14 06/22/2011 29496-Tzkuedhw Plate 05/20/2015 86833-Vwjlejbl Plate 07/15/2020 77815-Waarrdsf Plate 04/15/2020 99705-Qrcphstc Plate 04/17/2016 65560-Ozhtnvrx Plate 11/20/2019 09564-Wfmlndak Plate 09/18/2024 86589-Zxeadyuk Plate 06/16/2024 61337-Nfssorgh Plate 03/13/2024 32340-Wfgyebvl Plate 12/13/2023 60189-Uamokgkt Plate 02/15/2023 83126-Aeqrafub Plate 11/16/2022 59430-Bjspjdhm Plate 08/17/2022 34200-Nowwaegh Plate 05/18/2022 31727-Gugtzajx Plate 02/16/2022 64443-Xbuzzboy Plate 11/07/2021 15562-Czvpyruk Plate 07/14/2021 58766-Plcigqsl Plate 04/14/2021 55852-Indqncbq Plate 01/13/2021 00909-Ktanwpoz Plate 10/14/2020 65221-Jxswnpxg Plate Each Additional 83410-Bcqejtxh Plate Each Additional 29837-Pivcoxnh Plate Each Additional 12735-Entbzixx Plate Each Additional 07310-Nuxqnvgs Plate Each Additional 52835-Puqhsrkg Plate Each Additional 82442-Iogdtthl Plate Each Additional 45983-Czbgmoze Plate Each Additional 35219-Fwityrav Plate Each Additional 49549-Ikwzpcta Plate Each Additional 48236-Eieyxuut Plate Each Additional 82560-Fdhqksmm Plate Each Additional 80256-Lysbkjbs Plate Each Additional 40190-Efpgfugd Plate Each Additional 80427-Dkxnfemj Plate Each Additional 43146-Eiuqvybe Plate Each Additional 53657-Dvbrkepv Plate Each Additional 98946 I&D ABSCESS- SIMPLE,SINGLE 016 47319-LSCU SKIN LESIONS, OVER 4 07/10/20 16 06623-FRNU SKIN LESIONS, OVER 4 10/12/19 17 98011-TGDD SKIN LESIONS, OVER 4 01/12/20 17 58642-VBVP SKIN LESIONS, OVER 4 04/17/20 16 35034-LWRK SKIN LESIONS, OVER 4 01/20/20 16 48430-TAYL SKIN LESIONS, OVER 4 01/25/20 18 79104-XUQZ SKIN LESIONS, OVER 4 10/26/19 18 39872-MEAU SKIN LESIONS, OVER 4 07/26/20 17 94069-EOTC SKIN LESIONS, OVER 4 04/12/20 17 16073-WTOL SKIN LESIONS, OVER 4 07/15/20 20 01708-NEDH SKIN LESIONS, OVER 4 04/15/20 20 42768-JOCS SKIN LESIONS, OVER 4 09/11/19 20 09475-JUSA SKIN LESIONS, OVER 4 11/08/19 19 98676-LKHN SKIN LESIONS, OVER 4 08/08/20 18 59452-GVTE SKIN LESIONS, OVER 4 05/09/20 18 09607-YUQD SKIN LESIONS, OVER 4 10/07/19 16 28073-VXEP SKIN LESIONS, OVER 4 05/20/20 15 31669-RBNT SKIN LESIONS, OVER 4 01/29/20 15 60066-QZHN SKIN LESIONS, OVER 4 10/22/19 15 52238-SOFG SKIN LESIONS, OVER 4 07/09/20 14 91463-LTXM SKIN LESIONS, OVER 4 04/02/20 14 27665-PUMB SKIN LESIONS, OVER 4 11/21/19 14 91608-QAMD SKIN LESIONS, OVER 4 06/22/20 11 67395-AHYR SKIN LESIONS, OVER 4 10/12/19 12 62868-VSLO SKIN LESIONS, OVER 4 07/25/20 12 15367-TCHS SKIN LESIONS, OVER 4 05/09/20 12 43046-NQRF SKIN LESIONS, OVER 4 08/07/20 13 71752-CCEY SKIN LESIONS, OVER 4 05/01/20 13 14586-ZHCZ SKIN LESIONS, OVER 4 01/10/20 13 53194-DVRO SKIN LESIONS, OVER 4 10/10/19 13 72158-MDIK SKIN LESIONS, OVER 4 09/18/19 48480-PPCY SKIN LESIONS, OVER 4 06/16/20 19450-CMED SKIN LESIONS, OVER 4 11/20/19 50440-ZYPH SKIN LESIONS, OVER 4 03/13/20 94513-KWTK SKIN LESIONS, OVER 4 12/13/19 64794-UCBT SKIN LESIONS, OVER 4 02/16/20 60875-LTQP SKIN LESIONS, OVER 4 11/17/19 49700-KTBZ SKIN LESIONS, OVER 4 08/17/20 10602-XWIF SKIN LESIONS, OVER 4 05/18/20 70984-BCJQ SKIN LESIONS, OVER 4 02/17/20 59753-NSNH SKIN LESIONS, OVER 4 11/08/19 99649-EAYW SKIN LESIONS, OVER 4 07/14/20 82317-ZBGI SKIN LESIONS, OVER 4 04/14/20 91208-YWIG SKIN LESIONS, OVER 4 01/14/20 56499-TSRT SKIN LESIONS, OVER 4 10/14/19 Next Appt Details Provider Name:Sabino Chrissie MejiaNguyen , 12/25/2024 10:30:00 AM, [address] [place] [address], [phone], Insurance Providers Payer Name Payer Address Payer Phone Subscriber Number Group Number Insured Name Patient Relationship to Insured Coverage Start Date Coverage End Date [facility] [address] [place] [phone] [id number] Amarilis Wu Self - patient is the [...] Fx multiple Ribs car 1 week 07/03/22 [facility] [place] sternum mastoid proc ess 2020
--- OUTSIDE RECORDS SUMMARY | 2024-10-15 13:01 | XMS_ITS ---
[facility] Address [address] [place] [address] Care Team Providers Care Double Surface Operator Name Role Phone Dane MAYER, Kaylie Santacruz Primary Care Provider Un available Sabino Cedillo Unavailable [phone] Allergies Allergen (clinical drug ingredient) Drug/Non Drug [...] Ordered Date Performed Result Body Sit e 03171-BVLBUBS NAIL, 6 OR MORE 09/18/2024 N/A 19516-Xnngyvns Plate 09/18/2024 N/A 33101-Ndlkatwc Plate Each Additional 09/18/2024 N/A 93418-IEHJ SKIN LESIONS, OVER 4 09/18/2024 N/A Encounters Encounter Location Date Provider Diagnosis [facility] [address] [address] 09/18/2024 Sabino Cedillo Type 2 diabetes mellitus [...] Treatment Pending Test Test Name Order Date 40957-QLQCOBF NAIL, 6 OR MORE 09/18/2024 74053-Hxycrkoh Plate 09/18/2024 43037-Yyhonyqx Plate Each Additional 01622-XXUB SKIN LESIONS, OVER 4 09/18/19 25 Next Appt Details Follow Up: prn, Reason: Provider Name:Sabino Cedillo , 12/25/2024 10:30:00 AM, [address] [facility], [place], [address], Procedure Notes * Category Sub-Category Detail Notes [...] and future surgical procedures to prevent recurrence (75589/32), DIABETES: Pt was advised as to the [...] nipper and/or dremel-type grinder set up operator thread, to a more viable healthy nail plate [...] to maintain effectiveness in symptomatic relief - 11659 Keratoma Treatment Parring or Cutting o f [...] sterile 15 blade, tissue nippers, and/or power afterBOT instrumentation by the physician of record - 66687 Progress Notes * Amarilis WAY MDOB:[birth year] (79 yo F)Acc No.[id number]:09/18/2024 Progress Note Patient:?SEAMUSWuda Mily Provider:?Sabino Cedillo DPM :1945???Age:79 Y???Sex:Female D ate:09/18/2024 Address:[address] [place], [place] [address] Pcp:Mily Stanley Subjective: * Chief Complaints: * [...] border, T5??? Plan: * Treatment: 2.?Ingrown nail?Procedure: 78756-Pzhllmpr Plate ?Procedure: 18951-Bragnshg Plate Each Additional * Procedures:?Debride Nail 6-10:?Nail [...] nipper and/or dremel-type grinder set up operator thread, to a more viable healthy nail plate [...] to maintain effectiveness in symptomatic relief - 36447.?Keratoma Treatment:?Parring or Cutting of Benign Hyperkeratotic Lesion(s)?(-57) [...] instrumentation by the physician of record - 44076.?Nail Avulsion:?Location?Lateral nail border,?TA,?Medial nail border,?T5.?Anesthesia?was deferred - [...] and future surgical procedures to prevent recurrence (40131/32), DIABETES: Pt was advised as to the risk of delayed or nonhealing due to diabetes. Pt is to call the office with any questions, concerns, or complications, Pt STILL, DEFERS matricectomy.? * Procedure Codes:?75444 DEBRI DE NAIL, 6 OR MORE, Modifiers: XS 48176 Avulsion Plate, Modifiers: XS , [id number] Avulsion Plate Each Additional, Modifiers: XS , [id number] TRIM SKIN LESIONS, OVER 4, Modifiers: XS * Follow Up:?prn * Images: * Sign off status: Completed true * Provider:?Sabino Cedillo DPM Date:?2024 Generated for Kenny gillette/Florencio/Aleks on:?10/15/2024 01:00 PM [...]
--- OUTSIDE RECORDS SUMMARY | 2024-10-15 13:01 | XMS_ITS ---
Author Organization [facility] Address [address] [place] [address] Care Team Providers Care What Job Titles Mean Name Role Phone Dane MAYER, Kaylie Santacruz Primary Care Provider Un available Sabino Cedillo Unavailable [phone] Allergies Allergen (clinical drug ingredient) Drug/Non Drug [...] Ordered Date Performed Result Body Sit e 68344-VMNQMGU NAIL, 6 OR MORE 03/13/2024 N/A 02733-Qmqfxrng Plate 03/13/2024 N/A 76622-Okrzybuc Plate Each Additional 03/13/2024 N/A 64250-KBUO SKIN LESIONS, OVER 4 03/13/2024 N/A Encounters Encounter Location Date Provider Diagnosis [facility] [place] [address] [place] [address] 03/13/2024 Sabino Cedillo Type 2 diabetes mellitus [...] Treatment Pending Test Test Name Order Date 36573-CKWXLST NAIL, 6 OR MORE 03/13/2024 11537-Woqwmwor Plate 03/13/2024 78955-Xqeaznvi Plate Each Additional 80496-TVUO SKIN LESIONS, OVER 4 03/13/20 24 Next Appt Details Follow Up: prn, Reason: Provider Name:Sabino Cedillo , 12/25/2024 10:30:00 AM, [address] [place] [address], [address], Procedure Notes * Category Sub-Category Detail Notes [...] and future surgical procedures to prevent recurrence (78093/32), DIABETES: Pt was advised as to the [...] as necessary. Patient chooses, no pharmaceutical tx (04634) Keratoma Treatment Parring or Cutting o f Benign Hyperkeratotic Lesion(s) 23135 ( >4 Lesions) - The Benign hyperkeratotic lesions, as described above were pared, and/or cut utilizing a sterile #15 blade, tissue nippers, and/or dremel Progress Notes * Amarilis WAY MDOB:[birth year] (78 yo F)Acc No.[id number]:03/13/2024 Progress Note Patient:Amarilis Estrada Provider:?Sabino Cedillo DPM :1945???Age:78 Y???Sex:Female D ate:03/13/2024 Address:[address] [place], [place] [phone] Pcp:Mily Stanley Subjective: * Chief Complaints: * [...] to treatment,Improvement? Plan: * Treatment: 2.?Ingrown nail?Procedure: 49503-Lthpxldv Plate ?Procedure: 05941-Qmekzzdg Plate Each Additional * Procedures:?Debride Nail 6-10:?Nail debridement?Nail debridement performed extensively to reduce/remove overall nail length, girth, thickness, subungual debris, and necrotic tissue, by manual and electrical means through the use of a nail nipper and/or dremel, to more viable healthy nail plate or bed tissue 1-5. Silver nitrate used for any petechial bleeding as necessary. Patient chooses, no pharmaceutical tx (27331).?Keratoma Treatment:?Parring or Cutting of Benign Hyperkeratotic Lesion(s)?21963 ( >4 Lesions) - The Benign hyperkeratotic [...] and future surgical procedures to prevent recurrence (15327/32), DIABETES: Pt was advised as to the risk of delayed or nonhealing due to diabetes. Pt is to call the office with any questions, concerns, or complications, Pt STILL, DEFERS matricectomy.? * Procedure Codes:?22816 DEBRI DE NAIL, 6 OR MORE, Modifiers: XS 21621 Avulsion Plate, Modifiers: XS , [id number] Avulsion Plate Each Additional, Modifiers: XS , [id number] TRIM SKIN LESIONS, OVER 4, Modifiers: XS [...]
== END 2024-10-15 11:47 | disposition home or self-care (01) ==
LOC: HO.MAMMO 11:46
PROVIDERS: PCP Internal Medicine; Visit Provider Internal Medicine
DX: Z12.31 Encounter for screening mammogram for malignant neoplasm of breast (principal)
CPT/HCPCS: 77063; 77067

== ENCOUNTER → 2024-10-15 12:00 | Outpatient (BNV) | payer MEDICARE, SELFPAY | PROVIDERS: PCP Internal Medicine; Visit Provider Internal Medicine | DX: Z12.31 Encounter for screening mammogram for malignant neoplasm of breast (principal) | CPT/HCPCS: 77063; 77067 ==

== ENCOUNTER 2025-01-21 11:19 | Outpatient (AMB) | payer MEDICARE, SELFPAY ==
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
[2025-01-21 11:37] VITALS: BP 130/78; PULSE 74; RESP 18; TEMP 36.3; O2SAT 98; BMI 31.9
--- OUTSIDE RECORDS SUMMARY | 2025-01-21 11:43 | XMS_ITS | Clinical Summary ---
Author Organization [facility] ity Address [address] [place] [address] Care Team Providers Care Fisher Eel Spear Name Role Phone Elmer Allen MD Primary [...] Vaccines (1 of 2) 1997 RSV Immunization Adult Patie nts (1 - 1-dose 75+ series) 2022 COVID-19 Vaccine ( - 2023-2 5 season) 2024 Influenza Vaccine (Season Ended) 2025 HIB Vaccines Aged Out No longer eligi [...] age to complete this topic Meningococcal B Vaccine Aged Out No l onger eligible based on patient's age to complete this topic RSV Immunization Patients Un major 20 months Aged Out No longer eligible b ased on patient's age to complete this topic Varicella Vaccines Aged Out No longer eligible based on patient's age to complete this topic Care Teams Fisher Eel Spear Relationship Specialty Start Date End Date Elmer Allen MD PCP - General Internal Medicine 03/12/18
== END 2025-01-21 12:09 | disposition home or self-care (01) ==
PROVIDERS: PCP Internal Medicine; Visit Provider Internal Medicine
DX: L65.9 Nonscarring hair loss, unspecified (principal)

== ENCOUNTER → 2025-01-21 11:19 | Outpatient (BNVA) | payer MEDICARE, SELFPAY | PROVIDERS: PCP Internal Medicine; Visit Provider Internal Medicine | DX: L65.9 Nonscarring hair loss, unspecified (principal); Z13.30 Encounter for screening examination for mental health and behavioral disorders, unspecified; Z13.31 Encounter for screening for depression | CPT/HCPCS: 96127; 99212 ==

== ENCOUNTER 2025-05-07 14:02 | Outpatient (AMB) | payer MEDICARE, SELFPAY ==
--- OUTSIDE RECORDS SUMMARY | 2024-12-25 06:30 | XMS_ITS ---
Author Organization [facility] Address [address] [place] [address] Care Team Providers Care Mine Engineering Supervisor Name Role Phone Dane MAYER, Kaylie Santacruz Primary Care Provider Un available Sabino Cedillo Unavailable [phone] Encounters Encounter Location Date Provider Diagnosis [address] [address] 12/25/2024 Sabino Cedillo Plan Of Treatment Next Appt Details Provider Name:Sabino Cedillo , 08/03/2025 01:00:00 PM, [address] [place], [address], Progress Notes * Amarilis WAY MDOB:[birth year] (79 yo F)Acc No.[id number]:12/25/2024 Progress Note Patient: Amarilis CHESTER Provider: Manisha Cedillo DPM :1945 A ge:79 Y S ex:Female Date:12/25/2024 Address:[address] [place] [address] Pcp:Mily Stanley Subjective: * Chief Complaints: * [...] 0 12/25/2024 Generated for Kenny gillette/Florencio/Aleks on: 0 05/07/2025 04:59 PM EDT
--- OUTSIDE RECORDS SUMMARY | 2025-01-22 07:15 | XMS_ITS ---
Author Organization [facility] Address [address] [place] [address] Care Team Providers Care Time Cycle Operator Name Role Phone Dane MAYER, Kaylie Santacruz Primary Care Provider Un available Sabino Cedillo Unavailable [phone] REASON FOR VISIT Seen Sooner Encounters Encounter Location Date Provider Diagnosis [address] [address] 01/22/2025 Sabino Cedillo Plan Of Treatment Next Appt Details Provider Name:Sabino Cedillo , 08/03/2025 01:00:00 PM, [address] [place] [address], [phone], Progress Notes * SEAMUS Amarilis MDOB:[birth year] (79 yo F)Acc No.[id number]:01/22/2025 Progress Note Patient: Amarilis CHESTER Provider: Manisha Cedillo DPM :1945 A ge:79 Y S ex:Female Date:01/22/2025 Address:[address] [place] [phone] Pcp:Mily Stanley Subjective: * Chief Complaints: * [...] DPM Date: 0 01/22/2025 Generated for Kenny gillette/Florencio/Aleks on: 0 05/07/2025 04:59 PM EDT
--- NOTE | 2025-05-07 14:08 | MHC.OFFVIS ---
Vital Signs 05/07/25 14:09 Height 5 ft 3 in Weight 180 lb BMI 31.9 Pulse 96 Pulse Source Pulse Oximeter Pulse Oximetry (%) 96 Oxygen Delivery Method Room Air Intake Visit Reasons: Nocatee scrn. R/S x1 Intake Note: Returning pt for recall colo screening. Last w/ Dr. Adam 2018. CC: Pt denies any significant GI sx or concerns at this time. Pt states she takes OTC pepto and tin seltzer PRN but not on a regular basis. Moisture Tester Required: No Accompanied by: Self / Same As Patient Allergies adhesive tape Allergy (Unknown, Verified 05/07/25 14:09) Skin irritation, redness and itching molasses Allergy (Unknown, Verified 05/07/25 14:09) Rhinitis Seasonal Allergies Allergy (Unknown, Verified 05/07/25 14:09) Rhinitis umeclidinium (From INCRUSE ELLIPTA) Adverse Reaction (Intermediate, Verified 05/07/25 14:09) PALPITATIONS Maple Allergy (Unknown, Uncoded 05/07/25 14:09) Rhinitis inhaled corticosteroid Adverse Reaction (Unknown, Uncoded 05/07/25 14:09) palpitations HPI HPI Nocatee scrn. R/S x1: Details: 79 year old? female with past medical history of COPD, hypothyroidism, hypertension, diabetes, hyperlipidemia is here today for pre colonoscopy screening.? Patient was sent to us by her PCP.? Last colonoscopy in [address] Adam. History of tubular adenoma.? Patient denies any gastrointestinal symptoms in the past or at present.? Denies any family history of CRC.? Denies history of difficulty with sedation or anesthesia in the past.? Negative for history of sleep apnea.? Denies any history of cardiac, renal, pulmonary, or hepatic disease.?? No history of infectious? diseases like hepatitis A, B, C, HIV or tuberculosis.? Patient is not on any anticoagulation [facility] Medical History Fracture of radial head, left, closed Cervicalgia Arthralgia of hand, right Eczema of both hands Postablative hypothyroidism Benign hematuria Acquired ichthyosis Exercise-induced asthma Graves disease COPD (chronic obstructive pulmonary disease) Arthritis Type 2 diabetes mellitus with diabetic polyneuropathy Essential hypertension Hyperlipidemia LDL goal <100 Obesity (BMI 30.0-34.9) Surgical History History of eyelid surgery History of back surgery Hx of colonoscopy Hx of cholecystectomy Family History Father CVA (cerebral vascular accident) Diabetes Mother Renal disease Bile duct cancer Heart failure CVD (cardiovascular disease) Sister Mental health disorder Social History Household Members: Children Housing: House Alcohol intake: never Patient Tobacco Use Status: Former Tobacco user Years Smoked: 25 yrs e-Cigarette/Vaping Use: Never Used Second Hand Smoke Exposure: Yes service: No Current occupational status: retired Current occupation: right hand dominant Cognitive needs: No Hearing needs: No Vision needs: Yes Review of Systems Const Denies weight gain and Denies weight loss ENT Reports no additional complaints, Denies dysphagia and Denies odynophagia Card Reports no additional complaints Resp Reports no additional complaints GI Denies abdominal pain, Denies belching, Denies melena, Denies bloating, Denies change in bowel habits, Denies dysphagia, Denies excessive flatus, Denies dyspepsia, Denies heartburn, Denies diarrhea, Denies loose stools, Denies nausea, Denies odynophagia and Denies vomiting Reports no additional complaints Musc Reports no additional complaints Neuro Reports no additional complaints Psych Reports no additional complaints Endo Reports no additional complaints Physical Exam Const General: healthy appearing, no acute distress and well developed Nutritional Appearance: well nourished and obese Orientation/consciousness: patient oriented x3 Resp Effort & Inspection: normal respiratory effort, able to speak in complete sentences, no tracheal deviation and symmetric chest movement Auscultation: clear to auscultation bilaterally Cardio Rate: regular rate GI Inspection: Yes normal to inspection, No distended and Yes obesity Palpation (GI): Soft to palpation, not firm, nontender and No hepatosplenomegaly present Auscultation: normal bowel sounds General: Yes no CVA tenderness Back/Spine/Pelvis Back: no CVA tenderness Skin General skin exam: elasticity normal, turgor normal and dry skin Neuro General: patient oriented x3 Psych Appearance: grossly normal Mental Status: mental status grossly normal Assessment & Plan Assessment & Plan (1) Screen for colon cancer: Code(s): Z12.11 - Encounter for screening for malignant neoplasm of colon Plan Patient denies any GI, cardiac or respiratory symptoms.? Denies any issues with anesthesia in the past.? Denies any history of sleep apnea.? No history infectious diseases in the past or present.? Not on any anticoagulation therapy.? No family history of colon cancer.? Patient denies melena, hematochezia, unintentional weight loss or ribbon like stools.? Discussed at length the pre-procedure,? prep, diet & medications as well as what to expect prior, during and after the procedure.?? Stressed the importance of good bowel prep.? Recommended the use of Vaseline or Calmoseptine OTC & baby wipes with bowel movements to promote comfort.? ?Patient verbalizes understanding and agrees to plan of care.? She was given the opportunity to ask questions and all questions answered.? We will see her after the procedure.? Medications: New bisacodyl (Dulcolax (bisacodyl)) take 4 tabs at noon the day before your colonoscopy 20 mg (4 x 5 mg) PO ONCE 4 tabs 0RF constipation 1 day Z12.11 - Encounter for screening for malignant neoplasm of colon polyethylene glycol 3350 (Miralax) As directed by gastroenterology department at [facility] 238 grams PO ONCE 238 grams 0RF Z12.11 - Encounter for screening for malignant neoplasm of colon Coding Level of Care Code New Pt Level 3 (03488) Diagnoses Screen for colon cancer Z12.11 Time Spent (min) 40 Comment 30 minutes spent with patient and additional 10 minutes spent reviewing her records
[2025-05-07 14:09] VITALS: PULSE 96; O2SAT 96; BMI 31.9
--- OUTSIDE RECORDS SUMMARY | 2025-05-07 16:59 | XMS_ITS | Clinical Summary ---
Author Organization [facility] ity Address [address] [place] [address] Care Team Providers Care Orange Picker Machine Operator Name Role Phone Elmer Allen MD Primary [...] nts (1 - 1-dose 75+ series) 2022 Depression Screening 08/26/2024 COVID-19 Vaccine ( - 2023-2 5 season) 2025 Influenza Vaccine (#1) 2025 HIB Vaccines Aged Out No longer [...] age to complete this topic Care Teams Orange Picker Machine Operator Relationship Specialty Start Date End Date Elmer Allen MD PCP - General Internal Medicine 03/12/18
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
== END 2025-05-07 15:08 | disposition home or self-care (01) ==
LOC: HO.HGI 14:03
PROVIDERS: PCP Internal Medicine; Visit Provider Nurse Practitioner Family
DX: Z01.818 Encounter for other preprocedural examination (principal); Z12.11 Encounter for screening for malignant neoplasm of colon
CPT/HCPCS: 99024

== ENCOUNTER → 2025-05-07 14:02 | Outpatient (BNVA) | payer MEDICARE, SELFPAY | PROVIDERS: PCP Internal Medicine; Visit Provider Nurse Practitioner Family | DX: Z01.818 Encounter for other preprocedural examination (principal) | CPT/HCPCS: 99212 ==

== ENCOUNTER 2025-06-24 08:34 | Day surgery (SDC) | payer MEDICARE, SELFPAY ==
--- OUTSIDE RECORDS SUMMARY | 2025-05-26 13:48 | XMS_ITS | Clinical Summary ---
Author Organization [facility] ity Address [address] [place] [address] Care Team Providers Care Cancellation Clerk Name Role Phone Elmer Allen MD Primary [...] age to complete this topic Care Teams Cancellation Clerk Relationship Specialty Start Date End Date Elmer Allen MD PCP - General Internal Medicine 03/12/18
--- OUTSIDE RECORDS SUMMARY | 2025-05-26 13:48 | XMS_ITS | Encounter Summary ---
Author Organization [facility] Address [address] [place] [address] Phone Care Team Providers Care Solar Fabrication Technician Name Role Phone Elmer Allen MD Primary Care Provider [phone] Kaylie Vela MD Primary Care Provider Encounter Details Date Type Department Care Team (Late st Contact Info) Description 12/17/2018 Ancillary Orders [facility],Outside Imaging [address] [place] [address] System, Provider Not In, [place] [address] Social History Tobacco Use Types Packs/Day Years Used Date Smoking Tobacco: Former Cigarettes Q uit: 10/07/1995 Smokeless Tobacco: Never Comments Unknown Sex and Gender Information Value Date Recorded Sex Assigned at Not on file Legal Sex Female 10:06 PM EDT Gender Identity Not on file Sexual Orientation Not on file documented as of this encounter Plan of Treatment Not on file documented as of this encounter Results * XR Chest Outside (No Interpretation) (10/14/2018 12:00 AM EST) Narrative SYSTEMGENERATED, DOCUMENTATION - 12/17/2018 9:30 AM EDT This study is for PACS storage only and not for interpretation. us Provider Not In System PhD IMG OUTSIDE IMAGING W /OUT INTERPRETATION Final Result documented in this encounter Visit Diagnoses Not on filedocumented in this encounter Care Teams Solar Fabrication Technician Relationship Specialty Start Date End Date Elmer Allen MD [email or web address] PCP - General 06/13/17 03/28/20 Kaylie Vela MD [facility] [place] [address] PCP - General Internal Medicine 03/29/20 documented as of this encounter Additional Source Comments The information contained in this document represents components of the legal health record. It is not the complete legal health record.[facility]
--- OUTSIDE RECORDS SUMMARY | 2025-05-26 13:48 | XMS_ITS | Clinical Summary ---
Author Organization [facility] Address [address] [facility] [address] [place] [phone] Phone Care Team Providers Care Underground Bolting Machine Operator Name Role Phone Kaylie Vela MD Primary Care Provider Allergies Active Allergy Reactions Criticality Noted Date Comments Umeclidinium Other (See Comments) 07/02/2018 Urinary retention; tolerated Spiriva. Medications docosanol (ABREVA) 10 % Crea as needed. Active aspirin 325 MG tablet as needed. Active CALCIUM CARBONATE/VITAMI N D3 (CALCIUM 500 + D, D3, ORAL) 1 tab Active MULTIVITAMIN WITH IRON (HAIR VITAMINS ORAL) 1 tab(s) Activ e IRON &IRON ASP GLY-FA-MV,MIN38 ORAL 1 tab(s) Active lisinopril (PRINIVIL,ZESTRI L) 40 MG tablet 1 tablet Acti ve metFORMIN (GLUCOPHAGE) 500 MG tablet TAKE TWO TABLET(S) TWICE A DAY WITHMEALS Active naproxen (NAPROSYN) 250 MG tablet as needed. Active levothyroxine (SYNTHROID) 100 MCG tablet daily. Active valACYclovir (VALTREX) 1000 MG tablet Active GLUCOSAMINE HCL AND SULFATE (GLUCOSAMINE COMPLEX ORAL)Indications :Supple liquid Take 4 oz by mouth as needed. Indications: Supple liquid Active amLODIPine (NORVASC) 5 MG tabletIndication s:Takes in conjunction w a 2.5 mg, 7.5 g total qd Take 5 mg by mouth daily. Indications: Takes in conjunction w a 2.5 mg, 7.5 g total qd Active amLODIPine (NORVASC) 2.5 MG tabletIndication s:Takes in conjunction w a 5 mg, 7.5 g total qd Take 2.5 mg by mouth daily. Indications: Takes in conjunction w a 5 mg, 7.5 g total qd Active ciclopirox (CICLODAN) 0.77 % cream daily as needed. Active pioglitazone (ACTOS) 15 MG tablet Take 15 mg by mouth daily. Active albuterol 90 mcg/actuation inhalerIndicatio ns:Asthma INHALE TWO PUFFS BY MOUTH EVERY 6 HOURS NEEDED FOR WHEEZING OR FOR SHORTNESS OF BREATH / DYSPENEA . 18 g 11 4 Active tiotropium bromide (SPIRIVA RESPIMAT) 2.5 mcg/actuation mist for inhalationIndica tions:Simple chronic bronchitis Inhale 2 puffs into the lungs daily. 4 g 11 5 Active inhaler spacing device (AEROCHAMBER,RAJ ATHERITE) SpcrIndications: Moderate persistent asthma without complication Inhale 1 each into the lungs 2 (two) times a day. 5 Active BREO ELLIPTA 100-25 mcg/dose inhalerIndicatio ns:Chronic obstructive pulmonary disease INHALE ONE PUFF BY MOUTH EVERY DAY 180 each 5 5 Active Active Problems Problem Noted Date Diagnosed Date Vocal cord paralysis 06/09/2024 Assessment & Plan (06/09/2024 3:35 PM EDT): Patient reports difficulty singing, possible progressive vocal cord dysfunction. No current breathing difficulties reported. -Recommend evaluation by Dr. Hart if patient's concerns persist or worsen. -Discuss potential future implications and need for healthcare proxy to be aware of patient's wishes. Skin lesions 06/09/2024 Assessment & Plan (06/09/2024 3:36 PM EDT): Patient reports new skin lesions. No concerning features noted on examination. -Recommend evaluation by primary care provider for further assessment. Dyspnea on exertion 10/25/2023 Assessment & Plan (10/25/2023 2:32 PM EST): I did recommend that she walk is much as possible to help reexpand her lungs. I do not hear a pleural effusion at this time. I did recommend another chest x-ray to follow-up on that. She would like to hold off and I think that is reasonable given her lung exam. We will check a CXR again in 3 months and I will see her at that time. Visual hallucinations 08/08/2021 Assessment & Plan (08/08/2021 1:15 PM EST): I recommended that she follow-up with her PCP about these visual hallucinations. She should probably see a neurologist as well as her oven tender. I did order an MRI of her brain to make sure there was not any mass occupying lesion. Abnormal chest x-ray 10/23/2018 Assessment & Plan (02/03/2024 1:23 PM EDT): History of Rib Fractures and Pleural Effusion: No recent falls or injuries. No recurrence of pleural effusion on recent chest x-ray. -Continue current management. Assessment & Plan (01/12/2020 1:37 PM EDT): CT chest suggests no significant emphysema. No evidence of interstitial lung disease. Bronchoscopy is no longer indicated. Assessment & Plan (10/23/2018 2:13 PM EST): CT chest ordered for 2 weeks from now. If that is abnormal we have agreed to proceed to a bronchoscopy. Cough 10/23/2018 Assessment & Plan (05/16/2020 12:18 PM EDT): Recommend restart reflux therapy. Expect prednisone to help that as well. Assessment & Plan (01/12/2020 1:37 PM EDT): Much improved. Perhaps is a combination of Breo and GERD therapy. Continue with lifestyle modifications for GERD. Assessment & Plan (10/23/2018 2:13 PM EST): Recommend aggressive GERD therapy with PPI in the morning and H2 blockers in the evenings. Hypertension 03/15/2018 Spinal stenosis of lumbar region 03/14/2018 Assessment & Plan (03/14/2018 10:46 AM EDT): Patient is for surgery for her spinal stenosis this at [facility]. Dr Johnson Neurosurgery SANGITA on CPAP 10/30/2017 Assessment & Plan (09/27/2018 10:37 AM EST): Cont with Cpap. Assessment & Plan (03/15/2018 5:51 PM EDT): She does have sleep apnea and should bring her mask to the hospital for nighttime use perioperatively. Assessment & Plan (10/30/2017 11:31 AM EST): Encouraged continued compliance with CPAP mask. 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 Current treatment includes Breo and Spiriva. She reports difficulty using the Spiriva hand inhaler and prefers the Spiriva Respimat spray due to ease of use and effectiveness. Discussed the use of a spacer device with albuterol to improve delivery and reduce throat deposition. The Spiriva Respimat spray is noted for its lack of preservatives and reliable delivery. - Discontinue Spiriva hand inhaler and prescribe Spiriva Respimat spray. - Instruct pharmacy to prime Spiriva Respimat spray for her. - Prescribe aerochamber spacer device for use with albuterol. - Continue Breo as prescribed. - Advise her to call if there are issues with the Spiriva Respimat spray or if a switch back to the hand inhaler is needed. Orders: inhaler spacing device (AEROCHAMBER,BREATHERITE) Spcr; Inhale 1 each into the lungs 2 (two) times a day. Assessment & Plan (10/25/2023 2:31 PM EST): Continue with the Breo. Assessment & Plan (01/20/2021 10:11 AM EDT): Continue with the Breo. I did wonder if I should check eosinophils and see if she would be a candidate for alternate therapy such as Dupixent which would take care of her eczema as well. Patient thinks that her asthma is under good control with her current regimen and does not feel the need to escalate therapy at this time. Assessment & Plan (10/30/2017 11:31 AM EST): We'll hold off on adding Singulair for now. Will prescribe some Robitussin-AC for future use. Assessment & Plan (07/30/2017 6:26 PM EST): Recommend continue with the Brio at nighttime. We'll consider adding Singulair in the future Chronic obstructive pulmonary disease 07/30/2017 Assessment & Plan (12/29/2024 11:48 AM EDT): Orders: tiotropium bromide (SPIRIVA RESPIMAT) 2.5 mcg/actuation mist for inhalation; Inhale 2 puffs into the lungs daily. Assessment & Plan (06/09/2024 3:35 PM EDT): COPD and Asthma Overlap Syndrome Patient reports occasional difficulty with Spiriva inhaler device, but has found a workaround. Breathing is generally well-controlled, with some environmental triggers noted. -Continue current regimen of Breo and Spiriva. -Consider switching back to brand name Spiriva if device issues persist and become too bothersome. Assessment & Plan (02/03/2024 1:20 PM EDT): COPD/Asthma Overlap Syndrome: Stable with no increased coughing. Continues on Breo and Spiriva, though having difficulty with new generic Spiriva inhaler. -Continue Breo as prescribed. -Attempt to troubleshoot generic Spiriva inhaler with nursing staff. If unsuccessful, consider prior authorization for brand name Spiriva. Assessment & Plan (08/08/2021 1:14 PM EST): Continue with the Breo. I think she will improve if she can get restarted on the Spiriva. We discussed the Covid booster shot that she is due for. She like to wait until after the holidays because he has a lot of cooking to do she does not want her mom to be sore. Most of the people she will be meeting with have been vaccinated fully Assessment & Plan (01/20/2021 10:11 AM EDT): Continue with Spiriva. She prefers to HandiHaler. Assessment & Plan (05/16/2020 12:17 PM EDT): We will add a short course of prednisone. Did refill her Spiriva HandiHaler which she prefers over the Respimat. Continue with the Brio Ellipta. Assessment & Plan (01/12/2020 1:36 PM EDT): Patient is feeling improved. We will continue with the Brio. Assessment & Plan (10/23/2018 2:12 PM EST): Continue with Breo. Wheezing does not seem like her asthma at this point. Hold off on further steroids. Assessment & Plan (09/27/2018 10:38 AM EST): Will repeat PFTs to ensure stability. Cont with Breo. Assessment & Plan (03/15/2018 5:51 PM EDT): Recommend continue Breo and will give sample of an anticholinergic to take in order to optimize her for surgery. She is at mild risk for perioperative pulmonary complications since it has been quite sometime since her last respiratory infection. Her FEV1 is relatively stable. Assessment & Plan (10/30/2017 11:30 AM EST): Continue Spiriva and Breo at nighttime. Assessment & Plan (07/30/2017 6:26 PM EST): Would like to check full pulmonary function tests. The patient is agreeable. Did not get scheduled at the last visit. If COPD is not apparent will consider an echocardiogram or high-resolution CAT scan of the chest. Immunizations Immunization Administration Dates Next Due COVID-19 (Pre-06/17) Pfizer Vaccine, mRNA, PF Influenza High-Dose Quadrivalent Preservative Fr ee IM 05/27/2020 Influenza High-Dose Trivalent Preservative Free IM 06/13/2018 Influenza Trivalent Adjuvanted Preservative free IM 08/05/2017 Pneumococcal conjugate PCV13 08/10/2015 Zoster live 05/25/2015 Social History Tobacco Use Types Packs/Day Years Used Date Smoking Tobacco: Former Cigarettes Q uit: 10/07/1995 Smokeless Tobacco: Never Education Answer Date Recorded Are you interested in more education? Not on veronica e 12/21/2022 Are you concerned about learning? Not on file 12/21/2022 No 12/21/2022 No 12/21/2022 Digital Access Answer Date Recorded No 01/19/2023 No 01/19/2023 Reliable internet access at home? Not on file 01/19/2023 Device with a working camera? Not on file Comments Unknown Sex and Gender Information Value Date Recorded Sex Assigned at Not on file Legal Sex Female 10:06 PM EDT Gender Identity Not on file Sexual Orientation Not on file Last Filed Vital Signs Vital Sign Reading Time Taken Comments Blood Pressure 140/74 12/25/2024 10:11 AM EDT Pulse 83 12/25/2024 10:11 AM EDT Temperature 36.3 C (97.3 F) 12/25/2024 10:11 AM EDT Respiratory Rate - - Oxygen Saturation 97% 12/25/2024 10:11 AM EDT Inhaled Oxygen Concentration - - Weight 81.4 kg (179 lb 6.4 oz) 12/25/2024 10:11 AM EDT Height 160 cm (5' 3 ) 10/25/2023 10:37 AM EST Body Mass Index 31.78 10/25/2023 10:37 AM EST Plan of Treatment Health Maintenance Due Date Last Done Comments Adult Td,Tdap Booster 1947 CREATININE LEVEL 1947 LIPID PANEL 1947 POTASSIUM LEVEL 1947 TSH LEVEL 1947 DEPRESSION SCREENING 1959 HEPATITIS C SCREENING 1965 OSTEOPOROSIS SCREENING INITIAL (ONE-TIME) 2012 PNEUMOCOCCAL VACCINES (50+ years) (2 of 2 - PPSV23) 10/05/2015 08/10/2015 INFLUENZA VACCINE (#1) 2025 , 06/29/2022, 06/25/2021, Additional history exists COVID-19 VACCINE ( season) 2025 05/21/2024, 03/08/2023, 09/22/2021, Additional history exists BLOOD PRESSURE 06/27/2025 12/25/2024 SMOKING Hx and SMOKELESS TOBACCO SCREENING 12/25/2025 12/25/2024 ZOSTER VACCINES Completed 12/08/2022, 03/26, 05/25/2015 RSV VACCINE Completed 09/09/2024 HEPATITIS A VACCINES Aged Out No long er eligible based on patient's age to complete this topic HIB VACCINES Aged Out No longer eligi ble based on patient's age to complete this topic MENINGOCOCCAL VACCINES (ACWY) Aged Out No longer eligible based on patient's age to complete this topic MENINGOCOCCAL VACCINES (B) Aged Out N o longer eligible based on patient's age to complete this topic Medical Devices Not on file Insurance MEDICARE REPLACEMENT MEDICARE REPLACEMENT MEDICARE REPLACEMENT MEDICARE REPLACEMENT MEDICARE REPLACEMENT MEDICARE REPLAC[place] [phone] MEDICARE REPLACEMENT MEDICARE REPLACEMENT Care Teams Underground Bolting Machine Operator Relationship Specialty Start Date End Date Kaylie Vela MD [address] [facility] [address] [place], [place] [address] PCP - General Internal Medicine 03/29/20 Additional Source Comments The information contained in this document represents components of the legal health record. It is not the complete legal health record.[facility]
--- OUTSIDE RECORDS SUMMARY | 2025-05-26 13:48 | XMS_ITS | Encounter Summary ---
Author Organization [facility] Address [address] [facility] [address] [place] [address] Phone Care Team Providers Care Early Head Start Director Name Role Phone Elmer Allen MD Primary Care Provider [phone]- [phone] Kaylie Vela MD Primary Care Provider Encounter Details Date Type Department Care Team (Late st Contact Info) Description 12/17/2018 Ancillary Orders [facility],Outside Imaging [address] [place], [place] [id number] System, Provider [place] In, [place] [address] Social History Tobacco Use Types Packs/Day Years [...] on file documented as of this encounter Visit Diagnoses Not on filedocumented in this encounter Care Teams Early Head Start Director Relationship Specialty Start Date End Date Elmer Allen MD PCP - General 06/13/17 03/28/20 Kaylie Vela MD [address] [place] [address] PCP - General Internal Medicine 03/29/20 documented as of this encounter Additional Source Comments The information contained in this document represents components of the legal health record. It is not the complete legal health record.[facility]
--- OUTSIDE RECORDS SUMMARY | 2025-05-26 13:48 | XMS_ITS | Encounter Summary ---
Author Organization [facility] Address [address] [facility] [address] [place] [address] Phone Care Team Providers Care Training Program Developer Name Role Phone Elmer Allen MD Primary Care Provider [phone]- [phone] Kaylie Vela MD Primary Care Provider Encounter Details Date Type Department Care Team (Late st Contact Info) Description 12/17/2018 Ancillary Orders [facility],Outside Imaging [address] [place] [address] System, Provider [place] In, [place] [address] Social History Tobacco Use Types Packs/Day Years [...] Results * XR Chest Outside (No Interpretation) (09/01/2018 12:00 AM EST) Narrative SYSTEMGENERATED, DOCUMENTATION - 12/17/2018 9:31 AM EDT This study is for PACS storage only and not for interpretation. us Provider Not In System PhD IMG OUTSIDE IMAGING W /OUT INTERPRETATION Final Result documented in this encounter Visit Diagnoses Not on filedocumented in this encounter Care Teams Training Program Developer Relationship Specialty Start Date End Date Elmer Allen MD [email or web address] PCP - General 06/13/17 03/28/20 Kaylie Vela MD [facility] [place] [address] PCP - General Internal Medicine 03/29/20 documented as of this encounter Additional Source Comments The information contained in this document represents components of the legal health record. It is not the complete legal health record.[facility]
--- OUTSIDE RECORDS SUMMARY | 2025-05-26 13:48 | XMS_ITS | Encounter Summary ---
Author Organization [facility] Address [address] [place] [address] Phone Care Team Providers Care Sales Development Manager Name Role Phone Kaylie Vela MD Primary Care Provider Encounter Details Date Type Department Care Team (Late st Contact Info) Description 08/08/2021 Procedure Pass [facility], [address] [address] Social History Tobacco Use Types Packs/Day Years [...] on filedocumented in this encounter Care Teams Sales Development Manager Relationship Specialty Start Date End Date Kaylie Vela MD [address] [place] [address] [place] [address] PCP - General Internal Medicine 03/29/20 documented as of this encounter Additional Source Comments The information contained in this document represents components of the legal health record. It is not the complete legal health record.[facility]
--- OUTSIDE RECORDS SUMMARY | 2025-05-26 13:48 | XMS_ITS | Encounter Summary ---
Author Organization [facility] Address [address] [facility] [address] [place] [address] Phone Care Team Providers Care Wool And Pelt Grader Name Role Phone Elmer Allen MD Primary Care Provider [phone]- [phone] Kaylie Vela MD Primary Care Provider Encounter Details Date Type Department Care Team (Late st Contact Info) Description 09/09/2017 Transcribe Orders [facility] PFT Lab [address] [place] [address] Betsy Lynne MD [address] [place] [address] [email or web address] Social History Tobacco Use Types Packs/Day Years Used Date Smoking Tobacco: Former Cigarettes Q uit: 1994 Smokeless Tobacco: Never Comments Unknown Sex and Gender Information Value Date Recorded Sex Assigned at Not on file Legal Sex Female 10:06 PM EDT Gender Identity Not on file Sexual Orientation Not on file documented as of this encounter Plan of Treatment Not on file documented as of this encounter Visit Diagnoses Not on filedocumented in this encounter Care Teams Wool And Pelt Grader Relationship Specialty Start Date End Date Elmer Allen MD PCP - General 06/13/17 03/28/20 Kaylie Vela MD [address] [facility] [address] PCP - General Internal Medicine 03/29/20 documented as of this encounter Additional Source Comments The information contained in this document represents components of the legal health record. It is not the complete legal health record.[facility]
--- OUTSIDE RECORDS SUMMARY | 2025-05-26 13:48 | XMS_ITS | Encounter Summary ---
Author Organization [facility] Address [address] [place] [address] Phone Care Team Providers Care Ui Developer Designer Name Role Phone Elmer Allen MD Primary Care Provider +1- [phone] Kaylie Vela MD Primary Care Provider Reason for Referral * MRI/CAT Scan - Closed Specialty Diagnoses / Procedures Referred By Contac t Referred To Contact Procedures CT Chest Outside (No Interpretation) System, Provider Not In, [facility] [address] [address] Referral ID Status Reason Start Date Expiration Date Visits Re quested Visits Authorized [id number] Closed 12/17/2018 12/17/2019 1 1 Encounter Details Date Type Department Care Team (Late st Contact Info) Description 12/17/2018 Ancillary Orders [facility],Outside Imaging [address] [place] [address] System, Provider Not In, [facility] [address] [address] Social History Tobacco Use Types Packs/Day Years [...] documented as of this encounter Results * CT Chest Outside (No Interpretation) (11/05/2018 12:00 AM EDT) Narrative SYSTEMGENERATED, DOCUMENTATION - 12/17/2018 9:32 AM EDT This study is for PACS storage only and not for interpretation. us Provider Not In System PhD IMG OUTSIDE IMAGING W /OUT INTERPRETATION Final Result documented in this encounter Visit Diagnoses Not on filedocumented in this encounter Care Teams Ui Developer Designer Relationship Specialty Start Date End Date Elmer Allen MD PCP - General 06/13/17 03/28/20 Kaylie Vela MD [address] [place] [address] [place] [address] PCP - General Internal Medicine 03/29/20 documented as of this encounter Additional Source Comments The information contained in this document represents components of the legal health record. It is not the complete legal health record.[facility]
--- OUTSIDE RECORDS SUMMARY | 2025-05-26 13:48 | XMS_ITS | Encounter Summary ---
Author Organization [facility] Address [address] [facility] [address] [place] [address] Phone Care Team Providers Care Shipyard Painter Helper Name Role Phone Elmer Allen MD Primary Care Provider +1- [phone] Kaylie Vela MD Primary Care Provider Encounter Details Date Type Department Care Team (Latest Contact Info) Description 10/15/2017 Transcribe Orders [facility] PFT Lab [address] [place] [address] Betsy Lynne MD [address] [place] [id number] [email or web address] Asthma, unspecified asthma severity, unspecified whether complicated, unspecified whether persistent (Primary Dx) Social History Tobacco Use Types Packs/Day Years [...] documented as of this encounter Visit Diagnoses Diagnosis Asthma, unspecified asthma severity, unspecified whether complicated, unspecified whether persistent- Primary documented in this encounter Care Teams Shipyard Painter Helper Relationship Specialty Start Date End Date Elmer Allen MD PCP - General 06/13/17 03/28/20 Kaylie Vela MD [address] [place] [address] [place] [address] PCP - General Internal Medicine 03/29/20 documented as of this encounter Additional Source Comments The information contained in this document represents components of the legal health record. It is not the complete legal health record.[facility]
--- NOTE | 2025-06-22 09:11 | HO.ANESPROP2 ---
Documented by User: Amy Blanco NP 06/22/25 09:11 HPI - Anesthesia Eval Consult details Narrative: 80 yr old female for Colonoscopy [facility]LY [facility] Active Problems Active Problems: All Active Problems COPD (chronic obstructive pulmonary disease) (Acute) Postablative hypothyroidism (Acute) Type 2 diabetes mellitus with diabetic polyneuropathy (Acute) Essential hypertension (Acute) Hyperlipidemia LDL goal <100 (Acute) Obesity (BMI 30.0-34.9) (Acute) Past Medical History Medical History (Updated 06/24/25 @ 09:30 by Millicent Snell RN) Cataract, left Fracture of radial head, left, closed Cervicalgia Arthralgia of hand, right Eczema of both hands Postablative hypothyroidism Benign hematuria Acquired ichthyosis Exercise-induced asthma Graves disease COPD (chronic obstructive pulmonary disease) Arthritis Type 2 diabetes mellitus with diabetic polyneuropathy Essential hypertension Hyperlipidemia LDL goal <100 Obesity (BMI 30.0-34.9) Family History Family History Father CVA (cerebral vascular accident) Diabetes Mother Renal disease Bile duct cancer Heart failure CVD (cardiovascular disease) Sister Mental health disorder Surgical History Surgical History History of eyelid surgery History of back surgery Hx of colonoscopy Hx of cholecystectomy Social History Social History Household Members: Children Housing: House Alcohol intake: never Patient Tobacco Use Status: Former Tobacco user Years Smoked: 25 yrs e-Cigarette/Vaping Use: Never Used Second Hand Smoke Exposure: Yes Use of substances other than those prescribed or required for medical reasons: No Are you DNR?: No Advance Directives: No Advance Directives Information Provided: Yes Patient : No : No service: No Current occupational status: retired Current occupation: right hand dominant Cognitive needs: No Hearing needs: No Vision needs: Yes Meds Allergies Allergy/AdvReac Type Severity Reaction Status Date / Time adhesive tape Allergy Unknown Skin Verified 05/07/25 14:09 irritation, redness and itching molasses Allergy Unknown Rhinitis Verified 05/07/25 14:09 Seasonal Allergies Allergy Unknown Rhinitis Verified 05/07/25 14:09 umeclidinium (From INCRUSE AdvReac Intermediate PALPITATION Verified 05/07/25 14:09 ELLIPTA) S Maple Allergy Unknown Rhinitis Uncoded 05/07/25 14:09 inhaled corticosteroid AdvReac Unknown palpitation Uncoded 05/07/25 14:09 s Home Medications ?Medication ?Instructions ?Recorded ?Confirmed ?Last Taken ?Type albuterol sulfate 90 mcg/actuation 2 puff PO Q6H PRN wheezing 07/04/20 06/22/25 Unknown History aerosol inhaler ciclopirox 0.77 % topical cream appl topical BID 12/19/20 10/07/23 Unknown History fluticasone furoate 100 1 ea inhalation DAILY 10/07/23 06/22/25 Unknown History mcg-vilanterol 25 mcg/dose inhalation powder (Breo Ellipta) acetaminophen 325 mg tablet 650 mg PO Q4H PRN pain 12/09/23 06/22/25 Unknown History Documented by User: Brenda Cabezas MD 06/24/25 10:00 [facility] Past Medical History Medical History (Updated 06/24/25 @ 09:30 by Millicent Snell RN) Cataract, left Fracture of radial head, left, closed Cervicalgia Arthralgia of hand, right Eczema of both hands Postablative hypothyroidism Benign hematuria Acquired ichthyosis Exercise-induced asthma Graves disease COPD (chronic obstructive pulmonary disease) Arthritis Type 2 diabetes mellitus with diabetic polyneuropathy Essential hypertension Hyperlipidemia LDL goal <100 Obesity (BMI 30.0-34.9) Family History Family History Father CVA (cerebral vascular accident) Diabetes Mother Renal disease Bile duct cancer Heart failure CVD (cardiovascular disease) Sister Mental health disorder Family history of problems with anesthesia: No Surgical History Surgical History History of eyelid surgery History of back surgery Hx of colonoscopy Hx of cholecystectomy History of Problems with Anesthesia: No Social History Social History Household Members: Children Housing: House Alcohol intake: never Patient Tobacco Use Status: Former Tobacco user Years Smoked: 25 yrs e-Cigarette/Vaping Use: Never Used Second Hand Smoke Exposure: Yes Use of substances other than those prescribed or required for medical reasons: No Are you DNR?: No Advance Directives: No Advance Directives Information Provided: Yes Patient : No : No service: No Current occupational status: retired Current occupation: right hand dominant Cognitive needs: No Hearing needs: No Vision needs: Yes Meds Allergies Allergy/AdvReac Type Severity Reaction Status Date / Time adhesive tape Allergy Unknown Skin Verified 05/07/25 14:09 irritation, redness and itching molasses Allergy Unknown Rhinitis Verified 05/07/25 14:09 Seasonal Allergies Allergy Unknown Rhinitis Verified 05/07/25 14:09 umeclidinium (From INCRUSE AdvReac Intermediate PALPITATION Verified 05/07/25 14:09 ELLIPTA) S Maple Allergy Unknown Rhinitis Uncoded 05/07/25 14:09 inhaled corticosteroid AdvReac Unknown palpitation Uncoded 05/07/25 14:09 s Home Medications ?Medication ?Instructions ?Recorded ?Confirmed ?Last Taken ?Type albuterol sulfate 90 mcg/actuation 2 puff PO Q6H PRN wheezing 07/04/20 06/22/25 Unknown History aerosol inhaler ciclopirox 0.77 % topical cream appl topical BID 12/19/20 10/07/23 Unknown History fluticasone furoate 100 1 ea inhalation DAILY 10/07/23 06/22/25 Unknown History mcg-vilanterol 25 mcg/dose inhalation powder (Breo Ellipta) acetaminophen 325 mg tablet 650 mg PO Q4H PRN pain 12/09/23 06/22/25 Unknown History Exam Airway Mallampati Class: II TM Dist: >3cm Neck ROM: Full Partial: Upper and Lower Heart: rrr Lungs: cta Assessment and Plan Assessment Anesthesia Assessment: Anesthesia Plan Discussed and Chart Reviewed Final Anesthetic Review Family History of Problems with Anesthesia: No History of Problems with Anesthesia: No NPO: Yes ASA Class: III Final Preanesthetic Review: No Changes in Pt Med Stat, Meds/Allgs Chart Reviewed and Consent Obtained/Reviewed Patient Risk: Low Procedure Risk: Low Anesthetic Plan Anesthetic Plan: MAC: Disposition: Standard PACU
[2025-06-22 14:35] VITALS: BMI 31.9
[2025-06-24 09:23] VITALS: BMI 31.1
[2025-06-24 09:36] VITALS: BP 139/76; PULSE 96; RESP 16; TEMP 36.6; O2SAT 95
[2025-06-24 09:52] LABS: Glucose, Whole Blood 183 mg/dL (60-115)
[2025-06-24] MEDS: Lactated Ringers 1,000 ML 100 ML IVCONT (09:55)
--- NOTE | 2025-06-24 10:34 | P.HPSUR_ITS ---
Pre-Procedural Eval Section A - 24 Hr Update-Section A only Date of Service: 06/24/25 Section B - Complete if H&P > 30 days Chief Complaint: Hx of polyps Details of Present Illness: Fracture of radial head, left, closed Cervicalgia Arthralgia of hand, right Eczema of both hands Postablative hypothyroidism Benign hematuria Acquired ichthyosis Exercise-induced asthma Graves disease COPD (chronic obstructive pulmonary disease) Arthritis Type 2 diabetes mellitus with diabetic polyneuropathy Essential hypertension Hyperlipidemia LDL goal <100 Obesity (BMI 30.0-34.9) Surgical History History of eyelid surgery History of back surgery Hx of colonoscopy Hx of cholecystectomy Present Medications: see Short Stay Collaborative assessment Allergies: Allergies Allergy/AdvReac Type Severity Reaction Status Date / Time adhesive tape Allergy Unknown Skin Verified 05/07/25 14:09 irritation, redness and itching molasses Allergy Unknown Rhinitis Verified 05/07/25 14:09 Seasonal Allergies Allergy Unknown Rhinitis Verified 05/07/25 14:09 umeclidinium (From INCRUSE AdvReac Intermediate PALPITATION Verified 05/07/25 14:09 ELLIPTA) S Maple Allergy Unknown Rhinitis Uncoded 05/07/25 14:09 inhaled corticosteroid AdvReac Unknown palpitation Uncoded 05/07/25 14:09 s Review of Systems Review of Systems Comment: Ten point ROS negative Exam Exam Comment: Gen appear: No acute distress HEENT: no icterus Chest: No overt resp distress Abd: soft, nontender, nondistended Psych: Stable affect, answering questions appropriately Neuro: A/Ox3 noted to move all extremities spontaneously Ext: no peripheral edema Plan Diagnosis/Plan: Unchanged I have reviewed the history and physical and performed a pertinent physical examination on my patient. No changes have occurred unless specified. Time Spent With Patient Time: Total time managing care of this patient today ____ minutes.
[2025-06-24 11:15] VITALS: BP 102/52; PULSE 71; RESP 15; TEMP 36.7; O2SAT 95
--- NOTE | 2025-06-24 11:28 | P.OPN-COLO_ITS ---
Colonoscopy Operative Note Operative Note Date of Service: 06/24/25 Narrative: Procedure: Colonoscopy Indication: Personal history of polyps Endoscopist: Noelle Hutson MD Anesthesia Provider: Vielka Chapa CRNA Anesthesia type: MAC Instrument: Olympus [id number]-H190L Consent: Indication, risks vs benefits, and alternatives were discussed with the patient who gave written informed consent to proceed. EKG, pulse, pulse oximetry and blood pressure were monitored throughout the procedure. Please see anesthesia flowsheet. Procedure: The patient was brought to the procedure room and placed in the left lateral decubitus position. IV medications were administered by the anesthesia provider in attendance. A digital rectal exam was performed which was abnormal for external hemorrhoids. A distal attachment cap was affixed to the tip of the colonoscope which was then inserted through the anus and advanced through the colon to the cecum at 75 cm,and terminal ileum. Appendiceal orifice and ileocecal valve were identified. Mucosa was carefully examined under high definition white light as the instrument was slowly withdrawn in a retrograde panoramic fashion. Retroflexion was performed in rectum. The procedure was not difficult. There were no immediate obvious complications. The quality of the prep was BBPS: 3+3+3 = adequate Withdrawal time 12 minutes. Limitations: No limitations. Findings: Mucosa: Normal to cecum and terminal ileum. Protruding lesions: * Medium internal hemorrhoids without stigmata of recent bleeding. Excavated lesions: * Few diverticula in whole colon. Impression: 1. Normal colon and terminal ileum mucosa 2. Diverticulosis 3. External and internal hemorrhoids Recommendations: - Repeat colonoscopy for asymptomatic colorectal ca screening deferred due to age.
[2025-06-24 11:30] VITALS: BP 126/83; PULSE 83; RESP 18; TEMP 37.2; O2SAT 98
== END 2025-06-24 12:14 | disposition home or self-care (01) ==
PROVIDERS: PCP Internal Medicine; Visit Provider Internal Medicine
PROC: 0DJD8ZZ Inspection of Lower Intestinal Tract, Via Natural or Artificial Opening Endoscopic (ICD-10-PCS; CPT 45378; principal; 2025-06-24 10:50)
DX: Z12.11 Encounter for screening for malignant neoplasm of colon (principal); Z86.0101 Personal history of adenomatous and serrated colon polyps; E11.42 Type 2 diabetes mellitus with diabetic polyneuropathy; K64.8 Other hemorrhoids; K64.4 Residual hemorrhoidal skin tags; K57.30 Diverticulosis of large intestine without perforation or abscess without bleeding
CPT/HCPCS: G0121; 82947; J2704

== ENCOUNTER → 2025-06-24 08:34 | Outpatient (BNV) | payer MEDICARE, SELFPAY | PROVIDERS: PCP Internal Medicine; Visit Provider Internal Medicine | DX: Z12.11 Encounter for screening for malignant neoplasm of colon (principal); Z86.0100 Personal history of colon polyps, unspecified; K57.90 Diverticulosis of intestine, part unspecified, without perforation or abscess without bleeding; K64.8 Other hemorrhoids | CPT/HCPCS: G0105 ==

== ENCOUNTER 2025-07-07 13:41 | Outpatient (AMB) | payer MEDICARE, SELFPAY ==
--- OUTSIDE RECORDS SUMMARY | 2024-12-25 05:30 | XMS_ITS ---
Author Organization [facility] Address [address] [place] [address] Care Team Providers Care Education Assistant Name Role Phone Dane MAYER, Kaylie Santacruz Primary Care Provider Un available Sabino Cedillo Unavailable [phone] Encounters Encounter Location Date Provider Diagnosis [address] [address] 12/25/2024 Sabino Cedillo Plan Of Treatment Next Appt Details Provider Name:Sabino Cedillo , 08/03/2025 01:00:00 PM, [address] [place], [address], Progress Notes * Amarilis WAY MDOB:[birth year] (80 yo F)Acc No.[id number]:12/25/2024 Progress Note Patient: Amarilis CHESTER Provider: Manisha Cedillo DPM :1945 A ge:79 Y S ex:Female Date:12/25/2024 Address:[address] [place] [address] Pcp:Mily Stanley Subjective: * Chief Complaints: * * Medical History: Objective: * Vitals: Assessment: Plan: * Treatment: * Images: * The named appointment provid er may or may not be the originator of this progress note, and it is not deemed complete until electronically signed by the appointment provider. Sign off status: Pending * Provider: Manisha Cedillo DPM Date: 0 12/25/2024 Generated for Kenny gillette/Florencio/Aleks on: 1 09/06/2024 04:40 PM EST
--- OUTSIDE RECORDS SUMMARY | 2025-01-22 06:15 | XMS_ITS ---
Author Organization [facility] Address [address] [place] [address] Care Team Providers Care Mobility Manager Name Role Phone Dane MAYER, Kaylie Santacruz Primary Care Provider Un available Sabino Cedillo Unavailable [phone] REASON FOR VISIT Seen Sooner Encounters Encounter Location Date Provider Diagnosis [address] [address] 01/22/2025 Sabino Cedillo Plan Of Treatment Next Appt Details Provider Name:Sabino Cedillo , 08/03/2025 01:00:00 PM, [address] [place] [address], [phone], Progress Notes * SEAMUS Amarilis MDOB:[birth year] (80 yo F)Acc No.[id number]:01/22/2025 Progress Note Patient: Amarilis CHESTER Provider: Manisha Cedillo DPM :1945 A ge:79 Y S ex:Female Date:01/22/2025 Address:[address] [place] [id number] Pcp:Mily Stanley Subjective: * Chief Complaints: * 1 . Seen Sooner. * Medical History: Objective: * Vitals: Assessment: Plan: * Treatment: * Images: * The named appointment provid er may or may not be the originator of this progress note, and it is not deemed complete until electronically signed by the appointment provider. Sign off status: Pending * Provider: Manisha Cedillo DPM Date: 0 01/22/2025 Generated for Kenny gillette/Kermit on: 1 09/06/2024 04:40 PM EST
[2025-07-07 13:45] VITALS: BP 132/60; PULSE 84; O2SAT 97
--- NOTE | 2025-07-07 13:45 | MHC.OFFWIV ---
Intake Vital Signs 07/07/25 13:45 Height 5 ft 3 in BP 132/60 Blood Pressure Location Rt brachial Position Sitting Pulse 84 Pulse Source Pulse Oximeter Pulse Oximetry (%) 97 Oxygen Delivery Method Room Air Intake Visit Reasons: EP LT middle finger pain, and swelling Intake Note: Patient presents c/o left middle finger pain & swelling x2-3 weeks. Patient Tobacco Use Status: Former Tobacco user Allergies adhesive tape Allergy (Unknown, Verified 07/07/25 13:49) Skin irritation, redness and itching molasses Allergy (Unknown, Verified 07/07/25 13:49) Rhinitis Seasonal Allergies Allergy (Unknown, Verified 07/07/25 13:49) Rhinitis umeclidinium (From INCRUSE ELLIPTA) Adverse Reaction (Intermediate, Verified 07/07/25 13:49) PALPITATIONS Maple Allergy (Unknown, Uncoded 07/07/25 13:49) Rhinitis inhaled corticosteroid Adverse Reaction (Unknown, Uncoded 07/07/25 13:49) palpitations Do you need a note to return to daycare/school/sports/work: No HPI EP LT middle finger pain, and swelling HPI Details This is a 80-year-old female patient who presents to the walk-in clinic today with a painful/swollen left middle finger. She denies any trauma/injury to area. States that she has had intermittent finger pain/swelling in recent months. This particular finger started bothering her about 2 weeks ago. Denies any history of rheumatologic diagnoses. She is able to bend and straighten finger, however reports it is ?tight?. [facility] Medical History Cataract, left Fracture of radial head, left, closed Cervicalgia Arthralgia of hand, right Eczema of both hands Postablative hypothyroidism Benign hematuria Acquired ichthyosis Exercise-induced asthma Graves disease COPD (chronic obstructive pulmonary disease) Arthritis Type 2 diabetes mellitus with diabetic polyneuropathy Essential hypertension Hyperlipidemia LDL goal <100 Obesity (BMI 30.0-34.9) Surgical History History of eyelid surgery History of back surgery Hx of colonoscopy Hx of cholecystectomy Family History Father CVA (cerebral vascular accident) Diabetes Mother Renal disease Bile duct cancer Heart failure CVD (cardiovascular disease) Sister Mental health disorder Social History Household Members: Children Housing: House Alcohol intake: never Patient Tobacco Use Status: Former Tobacco user Years Smoked: 25 yrs e-Cigarette/Vaping Use: Never Used Second Hand Smoke Exposure: Yes service: No Current occupational status: retired Current occupation: right hand dominant Cognitive needs: No Hearing needs: No Vision needs: Yes Review of Systems Const All systems reviewed & are unremarkable except as noted in HPI and below Physical Exam Vital Signs: Last Vital Signs Pulse 84 07/07/25 13:45 BP 132/60 07/07/25 13:45 Pulse Ox 97 07/07/25 13:45 Oxygen Delivery Method Room Air 07/07/25 13:45 Const General: cooperative, healthy appearing, comfortable and no acute distress Resp Effort & Inspection: normal respiratory effort Skin General skin exam: no rashes or lesions noted Extrem Left upper extremity: hand Details: abnormal to inspection (left middle MCP) Details: joint swelling, normal capillary refill, tendon exam normal, abnormal ROM of finger Details: pain with active ROM Location: of the 3rd digit and unable to flex or extend Location: of the 3rd digit and swelling Location: of the 3rd digit Location: at the MCP joint Psych Appearance: grossly normal Mental Status: mental status grossly normal Speech and movement: Normal speech and movement present Assessment & Plan Assessment & Plan (1) Sprain of metacarpophalangeal joint of left middle finger: Code(s): S63.653A - Sprain of metacarpophalangeal joint of left middle finger, initial encounter Qualifiers: Encounter type: initial encounter Qualified Code(s): S63.653A - Sprain of metacarpophalangeal joint of left middle finger, initial encounter Plan: Likely sprain vs. OA. Patient does not wish to have imaging done. I splinted finger as patient feels she will not straighten finger on her own and I am concerned for contracture. Will prescribe an antiinflammatory - reviewed use and possible s/e, and advised patient to f/u with PCP as needed if pain/swelling persist. Patient verbalizes understanding and agrees to plan. Medications: New meloxicam 7.5 mg PO DAILY 7 tabs 0RF 7 days S63.652L - Sprain of metacarpophalangeal joint of left middle finger, initial encounter Coding Level of Care Code Est Pt Level 4 (32950) Diagnoses Sprain of metacarpophalangeal (MCP) joint of left middle finger, initial encounter S63.658O Encounter type: initial encounter
--- OUTSIDE RECORDS SUMMARY | 2025-07-07 16:42 | XMS_ITS | Encounter Summary ---
Author Organization [facility] Address [address] [place] [id number] Phone Care Team Providers Care Reference Librarian Name Role Phone Elmer Allen MD Primary Care Provider [phone]- [phone] Kaylie Vela MD Primary Care Provider Reason for Referral * MRI/CAT Scan - Closed Specialty Diagnoses / Procedures Referred By Contac t Referred To Contact Procedures CT Chest Outside (No Interpretation) System, Provider Not In, [facility] [address] Referral ID Status Reason Start Date Expiration Date Visits Re quested Visits Authorized [id number] Closed 12/17/2018 12/17/2019 1 1 Encounter Details Date Type Department Care Team (Late st Contact Info) Description 12/17/2018 Ancillary Orders [facility],Outside Imaging [address] [place] [address] System, Provider Not In, [facility] [id number] Social History Tobacco Use Types Packs/Day Years [...] on filedocumented in this encounter Care Teams Reference Librarian Relationship Specialty Start Date End Date Elmer Allen MD PCP - General 06/13/17 03/28/20 Kaylie Vela MD [address] [place] [address] [place] [id number] PCP - General Internal Medicine 03/29/20 documented as of this encounter Additional Source Comments The information contained in this document represents components of the legal health record. It is not the complete legal health record.[facility]
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
--- OUTSIDE RECORDS SUMMARY | 2025-07-07 16:42 | XMS_ITS | Encounter Summary ---
Author Organization [facility] Address [address] [facility] [address] [place] [address] Phone Care Team Providers Care Speech Language Pathologist Assistant Name Role Phone Elmer Allen MD Primary Care Provider [phone]- [phone] Kaylie Vela MD Primary Care Provider Encounter Details Date Type Department Care Team (Late st Contact Info) Description 09/09/2017 Transcribe Orders [facility] PFT Lab [address] [place] [address] Betsy Lynne MD [address] [place] [address] [email or web address] Social History Tobacco Use Types Packs/Day Years [...] on filedocumented in this encounter Care Teams Speech Language Pathologist Assistant Relationship Specialty Start Date End Date Elmer Allen MD PCP - General 06/13/17 03/28/20 Kaylie Vela MD [address] [place] [address] PCP - General Internal Medicine 03/29/20 documented as of this encounter Additional Source Comments The information contained in this document represents components of the legal health record. It is not the complete legal health record.[facility]
--- OUTSIDE RECORDS SUMMARY | 2025-07-07 16:42 | XMS_ITS | Encounter Summary ---
Author Organization [facility] Address [address] [facility] [address] [place] [address] Phone Care Team Providers Care Wind Field Manager Name Role Phone Elmer Allen MD Primary Care Provider +1- [phone] Kaylie Vela MD Primary Care Provider Encounter Details Date Type Department Care Team (Late st Contact Info) Description 12/17/2018 Ancillary Orders [facility],Outside Imaging [address] [place], [place] [id number] System, Provider Not In, [place] [address] Social History Tobacco Use Types Packs/Day Years [...] on filedocumented in this encounter Care Teams Wind Field Manager Relationship Specialty Start Date End Date Elmer Allen MD PCP - General 06/13/17 03/28/20 Kaylie Vela MD [address] [place] [address] PCP - General Internal Medicine 03/29/20 documented as of this encounter Additional Source Comments The information contained in this document represents components of the legal health record. It is not the complete legal health record.[facility]
--- OUTSIDE RECORDS SUMMARY | 2025-07-07 16:42 | XMS_ITS | Encounter Summary ---
Author Organization [facility] Address [address] [facility] [address] [place] [address] Phone Care Team Providers Care Dye Tub Tender Name Role Phone Elmer Allen MD Primary Care Provider +1- [phone] Kaylie Vela MD Primary Care Provider Encounter Details Date Type Department Care Team (Late st Contact Info) Description 12/17/2018 Ancillary Orders [facility],Outside Imaging [address] [place] [address] System, Provider Not In, [place] [address] Social History Tobacco Use Types Packs/Day Years [...] on filedocumented in this encounter Care Teams Dye Tub Tender Relationship Specialty Start Date End Date Elmer Allen MD PCP - General 06/13/17 03/28/20 Kaylie Vela MD [facility] [place] [address] PCP - General Internal Medicine 03/29/20 documented as of this encounter Additional Source Comments The information contained in this document represents components of the legal health record. It is not the complete legal health record.[facility]
--- OUTSIDE RECORDS SUMMARY | 2025-07-07 16:42 | XMS_ITS | Encounter Summary ---
Author Organization [facility] Address [address] [facility] [address] [place] [address] Phone Care Team Providers Care New Accounts Clerk Name Role Phone Elmer Allen MD Primary Care Provider +1- [phone] Kaylie Vela MD Primary Care Provider Encounter Details Date Type Department Care Team (Late st Contact Info) Description 12/17/2018 Ancillary Orders [facility],Outside Imaging [address] [place] [address] System, Provider Not In, [place] [address] Social History Tobacco Use Types Packs/Day Years [...] on filedocumented in this encounter Care Teams New Accounts Clerk Relationship Specialty Start Date End Date Elmer Allen MD [email or web address] PCP - General 06/13/17 03/28/20 Kaylie Vela MD [facility] [place] [address] PCP - General Internal Medicine 03/29/20 documented as of this encounter Additional Source Comments The information contained in this document represents components of the legal health record. It is not the complete legal health record.[facility]
--- OUTSIDE RECORDS SUMMARY | 2025-07-07 16:42 | XMS_ITS | Encounter Summary ---
Author Organization [facility] Address [address] [facility] [address] [place] [address] Phone Care Team Providers Care Training And Quality Manager Name Role Phone Elmer Allen MD Primary Care Provider +1- [phone] Kaylie Vela MD Primary Care Provider Encounter Details Date Type Department Care Team (Latest Contact Info) Description 10/15/[address]cribe [address] [facility] PFT Lab [address] [place] [address] Betsy Lynne MD [address] [place] [address] [email or web address] Asthma, unspecified asthma severity, unspecified whether complicated, [...] Primary documented in this encounter Care Teams Training And Quality Manager Relationship Specialty Start Date End Date Elmer Allen MD PCP - General 06/13/17 03/28/20 Kaylie Vela MD [address] [place] [address] [place] [address] PCP - General Internal Medicine 03/29/20 documented as of this encounter Additional Source Comments The information contained in this document represents components of the legal health record. It is not the complete legal health record.[facility]
--- OUTSIDE RECORDS SUMMARY | 2025-07-07 16:42 | XMS_ITS | Encounter Summary ---
Author Organization [facility] Address [address] [place] [address] Phone Care Team Providers Care Driver Engineer Name Role Phone Kaylie Vela MD Primary Care Provider Encounter Details Date Type Department Care Team (Late st Contact Info) Description 08/08/2021 Procedure Pass [facility], [address] [address] Social History Tobacco Use Types Packs/Day Years [...] on filedocumented in this encounter Care Teams Driver Engineer Relationship Specialty Start Date End Date Kaylie Vela MD [address] [place] [address] [place] [address] PCP - General Internal Medicine 03/29/20 documented as of this encounter Additional Source Comments The information contained in this document represents components of the legal health record. It is not the complete legal health record.[facility]
--- OUTSIDE RECORDS SUMMARY | 2025-07-07 16:42 | XMS_ITS | Clinical Summary ---
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 I did order an MRI of her [...] surgery for her spinal stenosis this at [facility]. Dr [facility] SANGITA on CPAP 10/30/2017 [...] VACCINES (50+ years) (2 of 2 - PPSV23, PCV20, or PCV21) 10/05/2015 08/10/2015 INFLUENZA VACCINE (#1) 2025 , [...] patient's age to complete this topic IPV VACCINES Aged Out No longer eligi ble based on patient's age to complete this topic MENINGOCOCCAL VACCINES (ACWY) Aged Out No longer eligible based on patient's age to complete this topic MENINGOCOCCAL VACCINES (B) Aged Out N o longer eligible based on patient's age to complete this topic Medical Devices Not on file Insurance MEDICARE REPLACEMENT [place] [id number] MEDICARE REPLACEMENT [place] [id number] MEDICARE REPLACEMENT MEDICARE REPLACEMENT MEDICARE REPLACEMENT [place] [phone] MEDICARE REPLACEMENT MEDICARE REPLACEMENT MEDICARE REPLACEMENT Care Teams Medicare Coordinator Relationship Specialty Start Date End Date Kaylie Vela MD [address] [facility] [place] [address] PCP - General Internal Medicine 03/29/20 Additional Source Comments The information contained in this document represents components of the legal health record. It is not the complete legal health record.[facility]
--- OUTSIDE RECORDS SUMMARY | 2025-07-07 16:42 | XMS_ITS | Clinical Summary ---
Author Organization [facility] Address [address] [place] [address] Care Team Providers Care Ecdis N Navigation Operator Name Role Phone Elmer Allen MD [...] series) 2022 Depression Screening 08/26/2024 COVID-19 Vaccine (1 - 2024-2 6 season) 2025 Influenza Vaccine (#1) 2025 HIB [...] age to complete this topic Care Teams Ecdis N Navigation Operator Relationship Specialty Start Date End Date Elmer Allen MD PCP - General Internal Medicine 03/12/18
== END 2025-07-07 14:41 | disposition home or self-care (01) ==
PROVIDERS: PCP Internal Medicine; Visit Provider Nurse Practitioner Family
DX: S63.653A Sprain of metacarpophalangeal joint of left middle finger, initial encounter (principal)

== ENCOUNTER → 2025-07-07 13:41 | Outpatient (BNVA) | payer MEDICARE, SELFPAY | PROVIDERS: PCP Internal Medicine; Visit Provider Nurse Practitioner Family | DX: S63.653A Sprain of metacarpophalangeal joint of left middle finger, initial encounter (principal); X58.XXXA Exposure to other specified factors, initial encounter; Y93.9 Activity, unspecified; Y92.9 Unspecified place or not applicable; Y99.9 Unspecified external cause status | CPT/HCPCS: 99212 ==